=== PATIENT | female | born 1935 | race Caucasian/White ===

== ENCOUNTER → 2016-09-15 | Day surgery (SDC) | payer OTHER ==
[~2016-09-15] VITALS: Ht 149.9 cm; Wt 44.5 kg
[~2016-09-15] MED LIST: AMLODIPINE BESY10 M1 PO; ASPIRIN EC81 M1 PO; ATORVASTATIN CA40 M1 PO; BISACODYL5 M1 PO; CARDIZEM60 M1 PO; CEFAZOLIN SODIUM1 G1 IV; CLOPIDOGREL75 M1 PO; COUMADIN4 M1 PO; DILTIAZEM 24HR360 MG PO; DOCUSATE SODIU100 M3 PO; EPOGEN4000 UNIT/ IV; FOLIC ACID0.4 M1 PO; FUROSEMIDE20 M1 PO; LANOXIN125 MCG PO; METOPROLOL TART25 M1 PO; METOPROLOL TART50 M1 PO; MIDODRINE HCL5 M1 PO; NEPHRO-VITE TA0.8 MG PO; NITROGLYCERIN1 EAC3 TOP; QUINAPRIL HCL40 M1 PO; RENVELA800 M1 PO; VITAMIN B-650 M2 PO; ZETIA10 M1 PO
--- NOTE | 2016-09-15 10:05 | Procedure ---
Minor Surgical Procedure Note Date of Procedure: 09/15/16 Procedure Note: Preoperative diagnosis end-stage renal disease Postoperative diagnosis the same Procedure creation of a left brachiocephalic arteriovenous fistula Surgeon huong Santana. none Anesthesia conscious sedation Findings post creation there was a palpable thrill in the fistula and a palpable left radial pulse Details of procedure Patient was placed supine on the table timeout was taken she was correctly identified she was given a light sedation her left arm was prepped and draped in usual sterile way 5 mL of Marcaine lidocaine mixture were used to infuse over the antecubital fossa and the left arm A 1-1/2 inch incision was made in the antecubital fossa with a scalpel Subcutaneous tissue was dissected with cautery The cephalic vein was identified coming off the antecubital vein and dissected proximally for 1-1/2 inches Side branches were ligated with 4-0 silk ties The vein was transected then gently dilated with a 8 Albanian feeding tube It flushed quite easily I spatulated the end I then carefully dissected into the deep fascia in the antecubital fossa over the palpable brachial artery and obtained proximal distal control I heparinized with 2000 heparin and clamped the brachial artery with gentle bulldog clamps I made a 5 mm arteriotomy with an 11 blade and the brachial artery and sutured the end of the vein end to side with 6-0 Prolene suture Prior to completion anastomosis I flushed both artery and vein I reestablished flow immediately there was a strong thrill and good hemostasis There was also good radial pulse I closed the Teresa's with Vicryl and the skin with janina patient was sent to recovery room in stable condition
== END ==
LOC: STS 01:45
DX: N18.6 End stage renal disease (principal); N18.1 Chronic kidney disease, stage 1; I71.4 Abdominal aortic aneurysm, without rupture; I25.2 Old myocardial infarction; Z79.01 Long term (current) use of anticoagulants; Z87.891 Personal history of nicotine dependence; I10 Essential (primary) hypertension; I25.10 Atherosclerotic heart disease of native coronary artery without angina pectoris
CPT/HCPCS: 36415; J0690; J1644

== ENCOUNTER 2017-11-03 11:15 | Inpatient (IN) | payer OTHER ==
[~2017-11-03] VITALS: Ht 149.9 cm; Wt 51.0 kg
[~2017-11-03 11:15] MED LIST changes: +ACIDOPHILUS1 EACH PO; +AUGMENTIN 875-1 EACH PO; +CARDIZEM30 M1 PO; +COUMADIN3 M1 PO; +EPOGEN2000 UNIT/ IV; +FISH OIL 1,0001 EACH PO; +FLUTICASONE PRO16 GM NASB; +LEVAQUIN500 M1 PO; +MIDODRINE HCL2.5 M1 PO; -MIDODRINE HCL5 M1 PO; +NITRO-DUR1 EACH TOP; +OMEPRAZOLE20 M2 PO; +PANTOPRAZOLE SO40 M1 PO; +VITAMIN D35000 UNI1 PO; +VOLTAREN100 GM TOP; +WOMEN'S LAXATIVE5 M1 PO
[2017-11-03] MEDS ORDERED: TYLENOL ARTHRI650 M1 PO (11:29)
[2017-11-03] MEDS ORDERED: DOXYCYCLINE HY100 M2 PO (11:30)
[2017-11-03] MEDS ORDERED: OMEPRAZOLE20 M2 PO (11:35)
[2017-11-03] MEDS ORDERED: RENVELA800 M1 PO ×2 (11:38)
[2017-11-03] MEDS ORDERED: MUCUS RELIEF400 M1 PO (11:42)
--- NOTE | 2017-11-03 11:46 | ED GENERAL ADULT ---
History of Present Illness General Chief Complaint: General Adult Stated Complaint: BIBA FOR WEAKNESS Source: patient, old records, EMS Exam Limitations: no limitations Vital Signs & Intake/Output Vital Signs & Intake/Output Vital Signs Date Time Temp Pulse Resp B/P B/P Pulse O2 O2 Flow FiO2 Mean Ox Delivery Rate 11/03 1125 98 Room Air Room Air 11/03 1121 97.6 63 18 156/70 98 Room Air Room Air Allergies Coded Allergies: NO KNOWN ALLERGIES (01/18/16) Reconcile Medications Acetaminophen (Tylenol Arthritis) 650 MG TABLET.ER 1 TAB PO BID PAIN ( Reported) Aspirin (Ecotrin*) 81 MG TABLET.DR 1 TAB PO DAILY HEART HEALTH (Reported) Atorvastatin Calcium 40 MG TABLET 1 TAB PO QPM CHOLESTEROL (Reported) Bisacodyl (Women's Laxative) 5 MG TABLET 1 TAB PO DAILY constipation ( Reported) Diclofenac Sodium (Voltaren) 1 % GEL..GRAM. 1 GM TOP 4 TIMES/DAY KNEE PAIN ( Reported) apply to affected area(s) Digoxin (Lanoxin) 125 MCG TABLET 0.0625 MG PO 1700 Heart Health Every 24h Diltiazem HCl (Cardizem) 60 MG TABLET 1 TAB PO Q8 HEART (Reported) Doxycycline Hyclate 100 MG CAPSULE 1 CAP PO BID ANTIBIOTIC, INFECTION ( Reported) Epoetin Tee (Epogen) 2,000 UNIT/ML VIAL 4,000 IV Monday dialysis (Reported) Ezetimibe (Zetia) 10 MG TABLET 1 TAB PO DAILY CHOLESTEROL (Reported) Fluticasone Propionate 50 MCG/ACTUATION SPRAY.SUSP 2 SPRAY NASB DAILY pnemonia (Reported) Folic Acid 0.4 MG TABLET 1 TAB PO DAILY SUPPLEMENT (Reported) Guaifenesin (Mucus Relief) 400 MG TABLET 2 TAB PO BID COLD (Reported) Lactobacillus Acidophilus (Acidophilus) 1 EACH CAPSULE 1 CAP PO DAILY supplement (Reported) Metoprolol Tartrate 25 MG TABLET 0.5 TAB PO BID HEART RATE (Reported) Midodrine HCl 2.5 MG TABLET 1 TAB PO Monday hypotension (Reported) Nephro-Vitamins (Nephro-Katlyn Tablet) 0.8 MG TABLET 1 TAB PO DAILY supplement (Reported) Nitroglycerin (Nitroglycerin Patch) 0.2 MG/HOUR PATCH.TD24 1 PAT TOP DAILY HEART (Reported) [place]-3 Fatty Acids/Fish Oil (Fish Oil 1,000 MG Capsule) 340 MG-1,000 MG CAPSULE 1 CAP PO DAILY SUPPLEMENT (Reported) Omeprazole 20 MG CAPSULE.DR 1 CAP PO DAILY GI (Reported) Pyridoxine HCl (Vitamin B-6) 50 MG TABLET 1 TAB PO DAILY SUPPLEMENT (Reported ) Sevelamer Carbonate (Renvela) 800 MG TABLET 2 TAB PO 1700 SUPPLEMENT ( Reported) Sevelamer Carbonate (Renvela) 800 MG TABLET 1 TAB PO SuTuThSa SUPPLEMENT ( Reported) Sevelamer Carbonate (Renvela) 800 MG TABLET 1 TAB PO MoWeFr SUPPLEMENT ( Reported) Triage Note: BIBA FROM [facility] WITH C/O "I'M JUST SO COLD AND WEAK". PT CURRENTLY ON ANTIBIOTICS FOR PNEUMONIA, WAS DUE FOR DIALYSIS AT 1100 THIS MORNING, PT STATING " I DIDN'T WANT TO GO BECAUSE IT'S TOO COLD THERE". PT IS AWAKE, ALERT, ORIENTED ON ARRIVAL TO ED, VITALS STABLE, AFEBRILE, 98% ON ROOM AIR. Triage Nurses Notes Reviewed? yes Onset: Abrupt Duration: week(s): (1), constant, continues in ED, getting worse Timing: single episode today Injury Environment: [facility] Severity: mild, moderate No Modifying Factors: none Associated Symptoms: cough LMP (ages 10-50): post menopausal : No Patient currently breastfeeds: No HPI: 81-year-old female past medical history of end-stage renal disease on dialysis, CVA, TIA, coronary artery disease, aortic aneurysm, atrial fibrillation presents for evaluation of weakness chills cough and shortness of breath. Patient states symptoms have been ongoing for about a week. Her cough is productive but she is not able to spit anything out. She also reports intermittent shortness of breath worse when she coughs. She denies chest pain and hemoptysis or lower extremity edema. She missed her dialysis today She felt cold and it is cold in the dialysis center. She was last dialyzed Monday. She's been taking oral antibiotics for possible pneumonia. Her antibiotics were switched to doxycycline yesterday because she has not been improving. She does report chills but denies having an actual fever. No nausea vomiting or diarrhea. She does report generalized weakness. (Eusebio Chan) Past History Travel History Traveled to [place] past 21 day No Medical History Any Pertinent Medical History? see below for history Neurological: CVA, TIA EENT: NONE Cardiovascular: aortic aneurysm, AFIB, CAD, hypertension, myocardial infarction Respiratory: NONE Gastrointestinal: NONE Hepatic: NONE Renal: chronic kidney disease, nephrolithiasis Musculoskeletal: osteoarthritis Psychiatric: NONE Endocrine: NONE Blood Disorders: NONE Cancer(s): NONE SENIOR BUSINESS MANAGER/Reproductive: NONE History of MRSA: No History of VRE: No History of CDIFF: No Surgical History Surgical History: hysterectomy, s/p splenectomy for thrombocytopenia s/p AAA reapir with stent Psychosocial History Who do you live with Patient/Self Services at Home Nursing What is your primary language [place] Tobacco Use: Quit >30 days ago ETOH Use: denies use Illicit Drug Use: denies illicit drug use Family History Hx Contributory? No (Eusebio Chan) Review of Systems Review of Systems Constitutional: Reports: chills, malaise, weakness. EENTM: Reports: no symptoms. Respiratory: Reports: see HPI, cough, short of breath, sputum production. Cardiovascular: Reports: no symptoms. GI: Reports: no symptoms. Genitourinary: Reports: no symptoms. Musculoskeletal: Reports: no symptoms. Skin: Reports: no symptoms. Neurological/Psychological: Reports: no symptoms. Hematologic/Endocrine: Reports: no symptoms. Immunologic/Allergic: Reports: no symptoms. All Other Systems: Reviewed and Negative (Eusebio Chan) Physical Exam Physical Exam General Appearance: well developed/nourished, no apparent distress, alert, awake Head: atraumatic, normal appearance Eyes: Bilateral: normal appearance, PERRL, EOMI. Ears, Nose, Throat: hearing grossly normal Neck: normal inspection, supple, full range of motion Respiratory: chest non-tender, no respiratory distress, quiet respiration, decreased breath sounds Cardiovascular: regular rate/rhythm, normal peripheral pulses Peripheral Pulses: 2+ radial (R), 2+ radial (L) Gastrointestinal: soft, non-tender Back: normal inspection, normal range of motion, no vertebral tenderness Extremities: normal inspection, normal range of motion, no edema Neurologic/Psych: no motor/sensory deficits, awake, alert, oriented x 3 Skin: intact, normal color, warm/dry Lymphatic: no anterior cervical chauncey Core Measures ACS in differential dx? Yes CVA/TIA Diagnosis: No Sepsis Present: No Sepsis Focused Exam Completed? No (Eusebio Chan) Progress Differential Diagnoses I considered the following diagnoses in my evaluation of the patient: [Pneumonia , acute bronchitis, cellulitis, sepsis, electrolyte abnormality, dialysis catheter infection] Plan of Care: Orders Procedure Date/time Status Heart Healthy Diet 11/03 D Active LACTIC ACID 11/03 1422 Active Patient Data 11/[address] CHEST WO IV CONTRAST 11/03 1327 Active ED Holding Orders 11/03 1254 Active Admit to inpatient 11/03 1254 Active Vital Signs 11/03 1254 Active Code Status 11/03 1254 Active Intake & Output 11/03 1237 Active Add-on Test (ER Only) 11/03 1227 Active Add-on Test (ER Only) 11/03 1215 Active BLOOD CULTURE 11/03 1209 Active PARTIAL THROMBOPLASTIN TIME 11/03 1135 Complete PROTHROMBIN TIME 11/03 1135 Complete DIGOXIN 11/03 1135 Complete B-TYPE NATRIURETIC PEP (BNP) 11/03 1135 Complete TROPONIN LEVEL 11/03 1122 Complete LACTIC ACID 11/03 1122 Complete COMPREHENSIVE METABOLIC PANEL 11/03 1122 Complete CBC WITHOUT DIFFERENTIAL 11/03 1122 Complete EKG 11/03 1122 Active Current Medications Sig/Margaret Start time Last Medication Dose Stop Time Status Admin Paricalcitol 6 MCG PER PROTOCL PRN 11/03 1330 AC (Zemplar Inj. 2MCG/ ML) Laboratory Tests 11/03/17 1135: Anion Gap 20 H, Estimated GFR 7 L, BUN/Creatinine Ratio 7.0, Glucose 78, Lactic Acid 1.9, Calcium 8.6, Total Bilirubin 0.9, AST 32, ALT 32, Alkaline Phosphatase 110, Troponin I 0.21 *H, [id number] Pept > 67591 H, Total Protein 6.0 L, Albumin 3.3 L, Globulin 2.7, Albumin/Globulin Ratio 1.2, PT 13.2 H, INR 1.21 H, APTT 20 L, CBC w Diff MAN DIFF ORDERED, RBC 3.85 L, MCV 91.2, MCH 30.7, MCHC 33.7, RDW 15.4 H, MPV 8.0, Gran % 67.9, Lymphocytes % 25.5 , Monocytes % 6.4, Eosinophils % 0.2, Basophils % 0, Absolute Granulocytes 16.4 H, Segmented Neutrophils 85 H, Absolute Lymphocytes 6.2 H, Lymphocytes 13 L, Monocytes 2, Absolute Monocytes 1.6 H, Absolute Eosinophils 0.1, Absolute Basophils 0, Platelet Estimate VERIFIED BY SMEAR, Normocytic RBCs VERIFIED, Normochromic RBCs VERIFIED, Digoxin 1.3 Microbiology 11/03 1230 BLOOD: Blood Culture - RECD 11/03 1209 BLOOD: Blood Culture - CAN Cancelled: Patient seen and evaluated. She is here with weakness cough shortness of breath and chills. Symptoms have been ongoing for a week she is being treated as an outpatient for pneumonia but feels she is not getting better. Her cough is loose sounding. She denies chest pain. Her vitals are stable on initial evaluation no hypoxia. Her EKG shows minimal ST depressions in the inferior leads. Blood work shows a white blood cell count of 24,000. This is significantly increased from 1 week ago. She also appears to have a positive troponin of 0.21. Spoke with Dr. Jimenez who agrees with giving her an aspirin. Dr. Rowley will evaluate the EKG to determine if the patient needs to be heparinized. Additionally spoke with Dr. Garcia from nephrology. He wants to dialyze the patient this afternoon. He recommends holding off on antibiotics until the last hour of dialysis. Patient will likely require broad-spectrum antibiotics due to her recently being on antibiotics. Case discussed with Dr. Duke he agrees. Chest x-ray does not show an overt consolidation. With the patient's elevated white blood cell count and cough a CT scan of the chest will be obtained for further evaluation. Patient will be admitted to telemetry. Antibiotics are being held at this time until dialysis. Also heparin is being held pending Dr. Jimenez looking at the EKG. Patient has no chest pain. Diagnostic Imaging: Viewed by Me: Radiology Read. Discussed w/RAD: Radiology Read. Radiology Impression: PATIENT: KENDY QUESADA PRESENT AGE: 81 PATIENT ACCOUNT NO: [id number] : 33 LOCATION: [facility] ORDERING PHYSICIAN: Eusebio JI SERVICE DATE: 11/03/17 EXAM TYPE: RAD - XRY- PORTABLE CHEST XRAY EXAMINATION: XR PORTABLE CHEST CLINICAL INFORMATION: Cough. Shortness of breath. Pneumonia. COMPARISON: Chest radiograph 09/29/2017. TECHNIQUE: Portable frontal view of the chest was obtained. FINDINGS: The position of the right internal jugular vein catheter has remained unchanged. Cardiac leads overlie the chest. The cardiac silhouette is grossly enlarged. Upper mediastinal contours are normal. Lungs are well-expanded. No overt consolidative disease. No pleural effusion or pneumothorax. No acute osseous finding. IMPRESSION: Stable examination. Cardiomegaly. No overt consolidative disease or effusion. DICTATED BY: Gayle HUBBARD,Hai Alvarez DATE/TIME DICTATED:11/03 MARINE ENGINEERING TEACHER:MARIA INES DATE/TIME TRANSCRIBED:11/03/171311 CONFIDENTIAL, DO NOT COPY WITHOUT APPROPRIATE AUTHORIZATION. <Electronically signed in Other Vendor System> Initial ED EKG: AFIB (RATE 61), nonspecific ST T wave chg, IVCD, MINIMAL INFERIOR ST DE[PRESSION (Eusebio Chan) Departure Departure Disposition: STILL A PATIENT Condition: Stable Clinical Impression Primary Impression: Elevated troponin I level Secondary Impressions: Leukocytosis Qualifiers: Leukocytosis type: unspecified Qualified Code: D72.829 - Elevated white blood cell count, unspecified Referrals: Jairo Nava MD (PCP/Family) Departure Forms: Customer Survey General Discharge Information Admission Note Spoke With: Jairo Nava MD Documentation of Exam: Documentation of any treatments & extenuating circumstances including Concerns Regarding Discharge (functional status, medication knowledge or non-compliance, living conditions, etc.) that warrant an admission rather than observation: [ Telemetry, serial labs, serial EKGs, cardiology, dialysis, IV antibiotics, echocardiogram, follow-up cultures] (Eusebio Chan) PA/RESPIRATORY SUPERVISOR Co-Sign Statement Statement: ED Attending supervision documentation- [X] I saw and evaluated the patient. I have also reviewed all the pertinent lab results and diagnostic results. I agree with the findings and the plan of care as documented in the PA's/RESPIRATORY SUPERVISOR's documentation. [X] I have reviewed the ED Record and agree with the PA's/RESPIRATORY SUPERVISOR's documentation. [] Additions or exceptions (if any) to the PAs/RESPIRATORY SUPERVISOR's note and plan are summarized below: [Patient to be admitted for IV antibiotics, dialysis, cardiology consultation, serial enzymes, telemetry monitoring] (Leilani HUBBARD,[address]) Critical Care Note Critical Care Note Critical Care Time: 75-104 min (Eusebio Chan)
[2017-11-03 11:52] LABS: ABSOLUTE BASOPHIL COUNT 0 /CUMM (0.0-0.2); ABSOLUTE EOSINOPHIL COUNT 0.1 /CUMM (0.0-0.7); ABSOLUTE GRANULOCYTE CT 16.4 /CUMM (1.4-6.5); ABSOLUTE LYMPH COUNT 6.2 /CUMM (1.2-3.4); ABSOLUTE MONOCYTE COUNT 1.6 /CUMM (0.10-0.60); BASOPHIL % 0 % (0.0-2.0); EOSINOPHIL % 0.2 % (0-5); GRANULOCYTE % 67.9 % (42.2-75.2); HEMATOCRIT 35.1 % (37-47); MEAN CORPUSCULAR HGB 30.7 PG (27.0-31.0); MEAN CORPUSCULAR HGB CONC 33.7 G/DL (33.0-37.0); MEAN CORPUSCULAR VOLUME 91.2 FL (81.0-99.0); PLATELET COUNT 447 /CUMM (130-400); RBC DISTRIBUTION WIDTH 15.4 % (11.5-14.5); RED BLOOD CELL CT 3.85 /CUMM (4.20-5.40); WHITE BLOOD CELL COUNT 24.2 /CUMM (4.8-10.8)
[2017-11-03 12:52] LABS: PT 13.2 SEC (9.4-12.5); PTT 20 SEC (25-37)
--- NOTE | 2017-11-03 13:17 | RADIOLOGY REPORT ---
EXAMINATION: XR PORTABLE CHEST CLINICAL INFORMATION: Cough. Shortness of breath. Pneumonia. COMPARISON: Chest radiograph 09/29/2017. TECHNIQUE: Portable frontal view of the chest was obtained. FINDINGS: The position of the right internal jugular vein catheter has remained unchanged. Cardiac leads overlie the chest. The cardiac silhouette is grossly enlarged. Upper mediastinal contours are normal. Lungs are well-expanded. No overt consolidative disease. No pleural effusion or pneumothorax. No acute osseous finding. IMPRESSION: Stable examination. Cardiomegaly. No overt consolidative disease or effusion.
--- NOTE | 2017-11-03 13:37 | History & Physical ---
Luda HUBBARD,[facility] 11/03/17 3847: General Information and HPI History of Present Illness: Ms. Weiner is an 81-year-old female with past medical history of CVA, aortic aneurysm, atrial fibrillation not on anticoagulation followed by Dr. Jimenez, coronary artery disease status post STEMI, hypertension, chronic kidney disease on hemodialysis followed with Dr. Tee, osteoarthritis, AAA status post repair, ITP status post splenectomy, and severe pulmonary hypertension who presents with chills and weakness. The patient has had symptoms of shortness of breath, chills, and a productive cough for the past week or so. Patient is a poor historian and does not remember exactly. She was started on levofloxacin 7 days ago and was not getting better. She was switched to doxycycline yesterday but continued to do poorly. She came in today because of that. She additionally complains of a right-sided pain, on her chest, there is constant and sharp, 6/10, somewhat relieved when laying on her left side. She does not use oxygen at home. She additionally complains of some mild dysuria though she does not urinate very much. She has not been vaccinated for influenza or pneumococcus. She does have positive sick contacts. She denies any abdominal pain, travel history, diarrhea, or other issues. She is a former smoker denies alcohol or drug use. Allergies/Medications Allergies: Coded Allergies: NO KNOWN ALLERGIES (01/18/16) Home Med list Acetaminophen (Tylenol Arthritis) 650 MG TABLET.ER 1 TAB PO BID PAIN ( Reported) Aspirin (Ecotrin*) 81 MG TABLET.DR 1 TAB PO DAILY HEART HEALTH (Reported) Atorvastatin Calcium 40 MG TABLET 1 TAB PO QPM CHOLESTEROL (Reported) Bisacodyl (Women's Laxative) 5 MG TABLET 1 TAB PO DAILY constipation ( Reported) Diclofenac Sodium (Voltaren) 1 % GEL..GRAM. 1 GM TOP 4 TIMES/DAY KNEE PAIN ( Reported) apply to affected area(s) Digoxin (Lanoxin) 125 MCG TABLET 0.0625 MG PO 1700 Heart Health Every 24h Diltiazem HCl (Cardizem) 60 MG TABLET 1 TAB PO Q8 HEART (Reported) Epoetin Tee (Epogen) 2,000 UNIT/ML VIAL 4,000 IV Monday dialysis (Reported) Ezetimibe (Zetia) 10 MG TABLET 1 TAB PO DAILY CHOLESTEROL (Reported) Folic Acid 0.4 MG TABLET 1 TAB PO DAILY SUPPLEMENT (Reported) Guaifenesin (Mucus Relief) 400 MG TABLET 2 TAB PO BID COLD (Reported) Lactobacillus Acidophilus (Acidophilus) 1 EACH CAPSULE 1 CAP PO DAILY supplement (Reported) Midodrine HCl 2.5 MG TABLET 1 TAB PO Monday hypotension (Reported) Nephro-Vitamins (Nephro-Katlyn Tablet) 0.8 MG TABLET 1 TAB PO DAILY supplement (Reported) [place]-3 Fatty Acids/Fish Oil (Fish Oil 1,000 MG Capsule) 340 MG-1,000 MG CAPSULE 1 CAP PO DAILY SUPPLEMENT (Reported) Omeprazole 20 MG CAPSULE.DR 1 CAP PO DAILY GI (Reported) Pyridoxine HCl (Vitamin B-6) 50 MG TABLET 1 TAB PO DAILY SUPPLEMENT (Reported ) Sevelamer Carbonate (Renvela) 800 MG TABLET 2 TAB PO 1700 SUPPLEMENT ( Reported) Sevelamer Carbonate (Renvela) 800 MG TABLET 1 TAB PO SuTuThSa SUPPLEMENT ( Reported) Sevelamer Carbonate (Renvela) 800 MG TABLET 1 TAB PO MoWeFr SUPPLEMENT ( Reported) Past History Travel History Traveled to [place] past 21 day No Medical History Neurological: CVA, TIA EENT: NONE Cardiovascular: aortic aneurysm, AFIB, CAD, hypertension, myocardial infarction Respiratory: NONE Gastrointestinal: NONE Hepatic: NONE Renal: chronic kidney disease, nephrolithiasis Musculoskeletal: osteoarthritis Psychiatric: NONE Endocrine: NONE Blood Disorders: NONE Cancer(s): NONE 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 yes Review of Systems Review of Systems Constitutional: Reports: see HPI. EENTM: Reports: no symptoms. Cardiovascular: Reports: no symptoms. Respiratory: Reports: see HPI. GI: Reports: no symptoms. Genitourinary: Reports: see HPI. Musculoskeletal: Reports: no symptoms. Skin: Reports: no symptoms. Neurological/Psychological: Reports: no symptoms. Hematologic/Endocrine: Reports: no symptoms. Immunologic/Allergic: Reports: no symptoms. All Other Systems: Reviewed and Negative Exam & Diagnostic Data Last 24 Hrs of Vital Signs/I&O Vital Signs Date Time Temp Pulse Resp B/P B/P Pulse O2 O2 Flow FiO2 Mean Ox Delivery Rate 11/03 1125 98 Room Air Room Air 11/03 1121 97.6 63 18 156/70 98 Room Air Room Air Intake & Output 11/03 1600 11/03 0800 11/03 0000 Intake Total 50 Output Total Balance 50 Intake, Oral 50 Patient 40.823 kg Weight Weight Reported by Patient Measurement Method Physical Exam General Appearance Alert, Oriented X3, Cooperative, No Acute Distress Sepsis Skin Exam (color): Normal for Ethnicity HEENT Atraumatic Cardiovascular irregular, catheter appears old but no erythema or discahrge Lungs Right sided wheezing Abdomen Normal Bowel Sounds, Soft, No Tenderness Extremities trace edema with armenta=sensitive tenderness Sepsis Peripheral Pulse Location: Posterior Tibialis Sepsis Peripheral Pulse Exam: Normal Sepsis Cap Refill Exam: <2 Sec Last 24 Hrs of Labs/Jorge: Laboratory Tests 11/03/17 1135: Anion Gap 20 H, Estimated GFR 7 L, BUN/Creatinine Ratio 7.0, Glucose 78, Lactic Acid 1.9, Calcium 8.6, Total Bilirubin 0.9, AST 32, ALT 32, Alkaline Phosphatase 110, Troponin I 0.21 *H, [id number]-[id number] Pept > 07619 H, Total Protein 6.0 L, Albumin 3.3 L, Globulin 2.7, Albumin/Globulin Ratio 1.2, PT 13.2 H, INR 1.21 H, APTT 20 L, CBC w Diff MAN DIFF ORDERED, RBC 3.85 L, MCV 91.2, MCH 30.7, MCHC 33.7, RDW 15.4 H, MPV 8.0, Gran % 67.9, Lymphocytes % 25.5 , Monocytes % 6.4, Eosinophils % 0.2, Basophils % 0, Absolute Granulocytes 16.4 H, Segmented Neutrophils 85 H, Absolute Lymphocytes 6.2 H, Lymphocytes 13 L, Monocytes 2, Absolute Monocytes 1.6 H, Absolute Eosinophils 0.1, Absolute Basophils 0, Platelet Estimate VERIFIED BY SMEAR, Normocytic RBCs VERIFIED, Normochromic RBCs VERIFIED, Digoxin 1.3 Microbiology 11/03 1452 LOWER RESP: Respiratory Culture - ORD 11/03 1452 LOWER RESP: Gram Stain - ORD 11/03 1451 URINE ROUT: Legionella Antigen - ORD 11/03 1451 URINE ROUT: Streptococcus pneumoniae Antigen (M - ORD 11/03 1451 NASOPHARYN: Influenza Virus A & B Rapid Smear - ORD 11/03 1230 BLOOD: Blood Culture - RECD 11/03 1209 BLOOD: Blood Culture - CAN Cancelled: Assessment/Plan Assessment: Ms. Weiner is an 81-year-old female with past medical history of CVA, aortic aneurysm, atrial fibrillation not on anticoagulation followed by Dr. Jimenez, coronary artery disease status post STEMI, hypertension, chronic kidney disease on hemodialysis followed with Dr. Tee, osteoarthritis, AAA status post repair, ITP status post splenectomy, and severe pulmonary hypertension who presents with chills and weakness. On presentation, vital signs were T 97.6, HR 60, RR 18, BP 156/70, saturating 90 % on room. Laboratories were significant for white blood cell count 24.2, hemoglobin 11.8, MCV 91.2, platelets 447, carbon dioxide 20, BUN 42, creatinine 6.0 (baseline 4.9) C's, troponin 0 0.21, BNP greater than 35,000, digoxin level 1.3, INR 1.21. Chest x-ray was negative for any acute abnormality. She will be admitted to telemetry and treated for the following problems: 1. Leukocytosis 2. Chronic kidney disease on hemodialysis 3. Elevated troponin 4. Normocytic anemia #Leukocytosis: Patient has a chronically elevated white blood cell count but is now presenting with chills, shortness of breath, and cough in the setting of an even higher white count. I suspect that she is infected but the source is unclear. Given her symptoms, pneumonia is high in the differential though she did fail levofloxacin and doxycycline therapy. It is possible that is resistant to these antibiotics. Additionally, she has a catheter has not been changed in a while and could be a source of infection, especially given that she has not responded to treatment so far. Finally, she is complaining of some mild dysuria and could have a urinary source. Patient is status post splenectomy and has chronic kidney disease, which contribute to an immunocompromised state. -Blood culture, sputum culture, urinary antigens -Urinalysis, urine culture -Vancomycin and ceftazidine empirically -Vanc level tomorrow 1800 -Infectious disease consult -CT chest #Elevated troponin: Patient is a very mild troponin elevation with no EKG changes. She has some right-sided thoracic pain but no left-sided chest pain or other signs of ACS. I suspect type II myocardial infarction. She did receive aspirin in the ER. -Trend troponin and EKGs -Cardiology consult #Chronic kidney disease on hemodialysis: Patient is on dialysis and is receiving dialysis today. Her anemia is likely related to this. -Nephrology consult #Chronic medical problems: -Continue other medications DVT prophylaxis with heparin Renal dialysis diet DNR/DNI As Ranked By This Provider Problem List: 1. Leukocytosis Qualifiers Leukocytosis type: unspecified Qualified Code: D72.829 - Elevated white blood cell count, unspecified Core Measures/Misc (02/05) Acute Coronary Syndrome ACS Diagnosis: No Congestive Heart Failure Congestive Heart Failure Diagnosis No Cerebrovascular Accident CVA/TIA Diagnosis: No VTE (View Protocol) VTE Risk Factors Age>40 No Mechanical VTE Prophylaxis d/t N/A MechProphylax Ordered No VTE Pharm Prophylaxis d/t NA PharmProphylax ordered Sepsis (View protocol) Sepsis Present: No If YES complete Sepsis Event Note If YES complete Sepsis Event Note Ceci HUBBARD,[facility] 11/03/17 1620: Core Measures/Misc (02/05) Sepsis (View protocol) If YES complete Sepsis Event Note If YES complete Sepsis Event Note Resident Review Statement Resident Statement: examined this patient, discussed with medical intern, agreed with medical intern, reviewed EMR data (avail) Other Findings: Mrs. Weiner is 81-year-old female with past medical history significant for hypertension, hyperlipidemia, atrial fibrillation not on anticoagulation for GI bleed, CVA, AAA status post repair 2004, CAD status post stent 2003, end-stage renal disease on dialysis M, W, F who presented to ED from [facility] with chief complaint of chills and weakness. History was obtained from patient's however she is a poor historian given clinical condition. She reported 1 week history of weakness, productive cough of yellow sputum, no blood , shortness of breath, patient had a chest x-ray on 10/26/17 that showed right upper lobe infiltration and was started on levofloxacin however symptoms persist and repeated chest x-ray on 11/02/17 showed bilateral basilar changes of atelectasis or pneumonia and antibiotic was switched to doxycycline. Patient continued to have similar symptoms and this morning missed her hemodialysis appointment because of chills, weakness and came to ED for evaluation. Patient reported right pleuritic chest pain that relieved with laying on left side. Positive history of sick contact. Problem list #HCAP being immunocompromised in nursing facility and failed levofloxacin and doxycycline associated with pleuritic chest pain #End-stage renal disease on hemodialysis #Elevated troponin with no EKG changes #Chronic leukocytosis Plan Admit to telemetry floor Vitals every shift Repeat CBCs, BEP in a.m. Blood culture 2 UA Hemodialysis per nephrology consultation Vancomycin and ceftazidime CT chest without IV contrast ID consultation Cardiology consultation Trend tropes and EKG Continue home medication except for mididrone Guaiac stool Orthostatic measurement Diet renal dialysis Code DNR/DNI DVT prophylaxis Alps and heparin subcutaneous Code DNR/DNI DVT prophylaxis Alps and heparin subcutaneous
--- NOTE | 2017-11-03 14:50 | Cons- Nephrology ---
See Addendum General Information and HPI Consulting Request Date of Consult: 11/03/17 Requested By: Jairo Nava MD Reason for Consult: ESRD Source of Information: patient, old records Exam Limitations: no limitations History of Present Illness: The patient is an 81-year-old woman with a past medical history most significant for end-stage renal disease on hemodialysis, A. fib on Coumadin, hypertension, CVA presents with weakness. This was in her usual state of health prior to a couple weeks ago and she reports that she has felt especially weak. She's had a cough has been mostly nonproductive. She has had some upper abdominal pain. Although the details are not entirely clear, she has been on oral antibiotics (Levaquin) for possible pneumonia for the last week or so which were switched to doxycycline yesterday. She has been feeling cold with chills but has not had a fever. On presentation, blood pressure 156/70afebrile. Labs most notable for white count 24.2. Chest x-ray unremarkable. 1 set of blood cultures sent. Should note she has a CVC for access. Allergies/Medications Allergies: Coded Allergies: NO KNOWN ALLERGIES (01/18/16) Home Med List: Acetaminophen (Tylenol Arthritis) 650 MG TABLET.ER 1 TAB PO BID PAIN ( Reported) Aspirin (Ecotrin*) 81 MG TABLET.DR 1 TAB PO DAILY HEART HEALTH (Reported) Atorvastatin Calcium 40 MG TABLET 1 TAB PO QPM CHOLESTEROL (Reported) Bisacodyl (Women's Laxative) 5 MG TABLET 1 TAB PO DAILY constipation ( Reported) Diclofenac Sodium (Voltaren) 1 % GEL..GRAM. 1 GM TOP 4 TIMES/DAY KNEE PAIN ( Reported) apply to affected area(s) Digoxin (Lanoxin) 125 MCG TABLET 0.0625 MG PO 1700 Heart Health Every 24h Diltiazem HCl (Cardizem) 60 MG TABLET 1 TAB PO Q8 HEART (Reported) Doxycycline Hyclate 100 MG CAPSULE 1 CAP PO BID ANTIBIOTIC, INFECTION ( Reported) Epoetin Tee (Epogen) 2,000 UNIT/ML VIAL 4,000 IV Monday dialysis (Reported) Ezetimibe (Zetia) 10 MG TABLET 1 TAB PO DAILY CHOLESTEROL (Reported) Fluticasone Propionate 50 MCG/ACTUATION SPRAY.SUSP 2 SPRAY NASB DAILY pnemonia (Reported) Folic Acid 0.4 MG TABLET 1 TAB PO DAILY SUPPLEMENT (Reported) Guaifenesin (Mucus Relief) 400 MG TABLET 2 TAB PO BID COLD (Reported) Lactobacillus Acidophilus (Acidophilus) 1 EACH CAPSULE 1 CAP PO DAILY supplement (Reported) Metoprolol Tartrate 25 MG TABLET 0.5 TAB PO BID HEART RATE (Reported) Midodrine HCl 2.5 MG TABLET 1 TAB PO Monday hypotension (Reported) Nephro-Vitamins (Nephro-Katlyn Tablet) 0.8 MG TABLET 1 TAB PO DAILY supplement (Reported) Nitroglycerin (Nitroglycerin Patch) 0.2 MG/HOUR PATCH.TD24 1 PAT TOP DAILY HEART (Reported) [place]-3 Fatty Acids/Fish Oil (Fish Oil 1,000 MG Capsule) 340 MG-1,000 MG CAPSULE 1 CAP PO DAILY SUPPLEMENT (Reported) Omeprazole 20 MG CAPSULE.DR 1 CAP PO DAILY GI (Reported) Pyridoxine HCl (Vitamin B-6) 50 MG TABLET 1 TAB PO DAILY SUPPLEMENT (Reported ) Sevelamer Carbonate (Renvela) 800 MG TABLET 2 TAB PO 1700 SUPPLEMENT ( Reported) Sevelamer Carbonate (Renvela) 800 MG TABLET 1 TAB PO SuTuThSa SUPPLEMENT ( Reported) Sevelamer Carbonate (Renvela) 800 MG TABLET 1 TAB PO MoWeFr SUPPLEMENT ( Reported) Current Medications: Current Medications Sig/Margaret Start time Last Medication Dose Route Stop Time Status Admin Aspirin 0 .STK-MED ONE 11/03 1234 DC PO Aspirin 325 MG ONCE ONE 11/03 1230 DC 11/03 PO 11/03 1231 1236 Paricalcitol 6 MCG PER PROTOCL PRN 11/03 1330 AC IV Review of Systems Review of Systems: Complete 14 point ROS neg except as per HPI Past History Travel History Traveled to [place] past 21 day No Medical History Neurological: CVA, TIA EENT: NONE Cardiovascular: aortic aneurysm, AFIB, CAD, hypertension, myocardial infarction Respiratory: NONE Gastrointestinal: NONE Hepatic: NONE Renal: chronic kidney disease, nephrolithiasis Musculoskeletal: osteoarthritis Psychiatric: NONE Endocrine: NONE Blood Disorders: NONE Cancer(s): NONE 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 yes Exam & Diagnostic Data Vital Signs and I&O Vital Signs Date Time Temp Pulse Resp B/P B/P Pulse O2 O2 Flow FiO2 Mean Ox Delivery Rate 11/03 1125 98 Room Air Room Air 11/03 1121 97.6 63 18 156/70 98 Room Air Room Air Intake & Output 11/03 0400 11/02 0400 11/01 0400 Intake Total 50 Output Total Balance 50 Intake, Oral 50 Patient 89 lb 15.99 oz Weight Weight Reported by Patient Measurement Method Physical Exam: Gen - weak appearing Head - NCAT Eyes - anicteric sclera, EOMI Neck - supple, no LAD CV - RRR, no m/r/g Chest - clear anteriorly, no w/r/r; CVC - no erythema/fluctuance Abd - soft, NTND Upper ext - warm, no edema Lower ext - warm, no edema Skin - no rash or jaundice Neuro - AOX3, grossly nonfocal Results Pertinent Lab Results: Laboratory Tests 11/03 1135 Chemistry Sodium (137 - 145 mmol/L) 143 Potassium (3.5 - 5.1 mmol/L) 4.1 Chloride (98 - 107 mmol/L) 103 Carbon Dioxide (22 - 30 mmol/L) 20 L Anion Gap (5 - 16) 20 H BUN (7 - 17 mg/dL) 42 H Creatinine (0.5 - 1.0 mg/dL) 6.0 *H Estimated GFR (>60 ml/min) 7 L BUN/Creatinine Ratio (7 - 25 %) 7.0 Glucose (65 - 99 mg/dL) 78 Lactic Acid (0.7 - 2.1 mmol/L) 1.9 Calcium (8.4 - 10.2 mg/dL) 8.6 Total Bilirubin (0.2 - 1.3 mg/dL) 0.9 AST (14 - 36 U/L) 32 ALT (9 - 52 U/L) 32 Alkaline Phosphatase (<127 U/L) 110 Troponin I (< 0.11 ng/ml) 0.21 *H [id number] Pept (<125 pg/mL) > 26300 H Total Protein (6.3 - 8.2 g/dL) 6.0 L Albumin (3.5 - 5.0 g/dL) 3.3 L Globulin (1.9 - 4.2 gm/dL) 2.7 Albumin/Globulin Ratio (1.1 - 2.2 %) 1.2 Coagulation PT (9.4 - 12.5 SEC) 13.2 H INR (0.90 - 1.19) 1.21 H APTT (25 - 37 SEC) 20 L Hematology CBC w Diff MAN DIFF ORDERED WBC (4.8 - 10.8 /CUMM) 24.2 H RBC (4.20 - 5.40 /CUMM) 3.85 L Hgb (12.0 - 16.0 G/DL) 11.8 L Hct (37 - 47 %) 35.1 L MCV (81.0 - 99.0 FL) 91.2 MCH (27.0 - 31.0 PG) 30.7 MCHC (33.0 - 37.0 G/DL) 33.7 RDW (11.5 - 14.5 %) 15.4 H Plt Count (130 - 400 /CUMM) 447 H MPV (7.4 - 10.4 FL) 8.0 Gran % (42.2 - 75.2 %) 67.9 Lymphocytes % (20.5 - 51.1 %) 25.5 Monocytes % (1.7 - 9.3 %) 6.4 Eosinophils % (0 - 5 %) 0.2 Basophils % (0.0 - 2.0 %) 0 Absolute Granulocytes (1.4 - 6.5 /CUMM) 16.4 H Segmented Neutrophils (42.2 - 75.2 %) 85 H Absolute Lymphocytes (1.2 - 3.4 /CUMM) 6.2 H Lymphocytes (20.5 - 51.1 %) 13 L Monocytes (1.7 - 9.3 %) 2 Absolute Monocytes (0.10 - 0.60 /CUMM) 1.6 H Absolute Eosinophils (0.0 - 0.7 /CUMM) 0.1 Absolute Basophils (0.0 - 0.2 /CUMM) 0 Platelet Estimate (ADEQUATE) VERIFIED BY SMEAR Normocytic RBCs VERIFIED Normochromic RBCs VERIFIED Toxicology Digoxin (0.8 - 2.0 ng/mL) 1.3 Imaging/Other Studies: EXAM TYPE: RAD - XRY-PORTABLE CHEST XRAY EXAMINATION: XR PORTABLE CHEST CLINICAL INFORMATION: Cough. Shortness of breath. Pneumonia. COMPARISON: Chest radiograph 09/29/2017. TECHNIQUE: Portable frontal view of the chest was obtained. FINDINGS: The position of the right internal jugular vein catheter has remained unchanged. Cardiac leads overlie the chest. The cardiac silhouette is grossly enlarged. Upper mediastinal contours are normal. Lungs are well-expanded. No overt consolidative disease. No pleural effusion or pneumothorax. No acute osseous finding. IMPRESSION: Stable examination. Cardiomegaly. No overt consolidative disease or effusion. Assessment/Plan Assessment/Recommendations Assessment: Weakness - Elevated WBC brings up concern for infection (although should note that her baseline WBC is approx 12-14). Localizing symptoms including cough as well as upper abd pain. Chest x-ray unrevealing. Being started on empiric abx while cultures sent. May need to consider abdominal imaging to find source given pain. ESRD - Due for routine HD today. CVC not clearly infected. Anemia - Hg above goal - will hold off on further KEVON administration. Recommendations: -HD today - UF to EDW -Abx as per primary team; f/u cultures; consider further CT C/A/P imaging -Hold off on KEVON -Next HD on Monday Please call [phone]
--- NOTE | 2017-11-03 15:55 | PN- Student ---
Subjective Subjective: Ms. Weiner is a 81 y/o female with a PMH significant for end-stage renal disease on dialysis (followed by Dr. Lujan), CVA, TIA, CAD, AAA s/p stent, afib (not on Coumadin), splenectomy, chronic leukocytosis, severe PHTN, HTN that comes to ED BIBA d/t feeling "cold and weak". She was scheduled to get her dialysis today and didn't want to go because "the place is too cold". She states that she doesn't know the onset of symptoms, but her complains have been constant for the past couple of days. The weakness have been associated with cough which produces a small amount of bright yellow sputum. She also complains of a 6/10 sharp pain in the right side of her chest which doesn't radiate anywhere, nothing makes it worse, but lying on her left side makes it better. She denies confusion, fevers, chest pain or dizziness. She does report chills, pain on urination (which has gone on since she started dialysis) and a temporal dull headache on her right side. Labs on admission were significant for WBC of 24.2, creatinine of 6, PBNP >00522 and Troponins of 0.21. Allergies: None Meds: Acetaminophen (Tylenol Arthritis) 650 MG TABLET.ER 1 TAB PO BID PAIN ( Reported) Aspirin (Ecotrin*) 81 MG TABLET.DR 1 TAB PO DAILY HEART HEALTH (Reported) Atorvastatin Calcium 40 MG TABLET 1 TAB PO QPM CHOLESTEROL (Reported) Bisacodyl (Women's Laxative) 5 MG TABLET 1 TAB PO DAILY constipation ( Reported) Diclofenac Sodium (Voltaren) 1 % GEL..GRAM. 1 GM TOP 4 TIMES/DAY KNEE PAIN ( Reported) apply to affected area(s) Digoxin (Lanoxin) 125 MCG TABLET 0.0625 MG PO 1700 Heart Health Every 24h Diltiazem HCl (Cardizem) 60 MG TABLET 1 TAB PO Q8 HEART (Reported) Doxycycline Hyclate 100 MG CAPSULE 1 CAP PO BID ANTIBIOTIC, INFECTION ( Reported) Epoetin Tee (Epogen) 2,000 UNIT/ML VIAL 4,000 IV Monday dialysis (Reported) Ezetimibe (Zetia) 10 MG TABLET 1 TAB PO DAILY CHOLESTEROL (Reported) Fluticasone Propionate 50 MCG/ACTUATION SPRAY.SUSP 2 SPRAY NASB DAILY pnemonia (Reported) Folic Acid 0.4 MG TABLET 1 TAB PO DAILY SUPPLEMENT (Reported) Guaifenesin (Mucus Relief) 400 MG TABLET 2 TAB PO BID COLD (Reported) Lactobacillus Acidophilus (Acidophilus) 1 EACH CAPSULE 1 CAP PO DAILY supplement (Reported) Metoprolol Tartrate 25 MG TABLET 0.5 TAB PO BID HEART RATE (Reported) Midodrine HCl 2.5 MG TABLET 1 TAB PO Monday hypotension (Reported) Nephro-Vitamins (Nephro-Katlyn Tablet) 0.8 MG TABLET 1 TAB PO DAILY supplement (Reported) Nitroglycerin (Nitroglycerin Patch) 0.2 MG/HOUR PATCH.TD24 1 PAT TOP DAILY HEART (Reported) [place]-3 Fatty Acids/Fish Oil (Fish Oil 1,000 MG Capsule) 340 MG-1,000 MG CAPSULE 1 CAP PO DAILY SUPPLEMENT (Reported) Omeprazole 20 MG CAPSULE.DR 1 CAP PO DAILY GI (Reported) Pyridoxine HCl (Vitamin B-6) 50 MG TABLET 1 TAB PO DAILY SUPPLEMENT (Reported ) Sevelamer Carbonate (Renvela) 800 MG TABLET 2 TAB PO 1700 SUPPLEMENT ( Reported) Sevelamer Carbonate (Renvela) 800 MG TABLET 1 TAB PO SuTuThSa SUPPLEMENT ( Reported) Sevelamer Carbonate (Renvela) 800 MG TABLET 1 TAB PO MoWeFr SUPPLEMENT ( Reported) PMH: CVA, TIA, AAA, afib, CAD, HTN, PHTN, PA, ESRD, nephrolithiasis, osteoarthritis FH: Father: "heart problems", Mother: uterine cancer SH: hysterectomy, splenectomy (d/t thrombocytopenia), AAA s/p stent SH: Patient lives in [facility], 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 She is a former smoker but denies illicit drug use and alcohol ingestion. She denies any recent travels. She is mostly bed bound although sometimes she takes a few steps to the common dinning area and the nurses move her ocasionally to a chair. Review of Systems Constitutional: Reports: see HPI. EENTM: Reports: see HPI Cardiovascular: Reports: no symptoms. Respiratory: Reports: see HPI. GI: Reports: constipation Genitourinary: Reports: see HPI. Musculoskeletal: Reports: no symptoms. Skin: Reports: no symptoms. Neurological/Psychological: Reports: no symptoms. Hematologic/Endocrine: Reports: increased bruising Immunologic/Allergic: Reports: no symptoms. Objective Objective: Vital Signs Date Time Temp Pulse Resp B/P B/P Pulse O2 O2 Flow FiO2 Mean Ox Delivery Rate 11/03 1125 98 Room Air Room Air 11/03 1121 97.6 63 18 156/70 98 Room Air Room Air Laboratory Tests 11/03 1135 Chemistry Sodium (137 - 145 mmol/L) 143 Potassium (3.5 - 5.1 mmol/L) 4.1 Chloride (98 - 107 mmol/L) 103 Carbon Dioxide (22 - 30 mmol/L) 20 L Anion Gap (5 - 16) 20 H BUN (7 - 17 mg/dL) 42 H Creatinine (0.5 - 1.0 mg/dL) 6.0 *H Estimated GFR (>60 ml/min) 7 L BUN/Creatinine Ratio (7 - 25 %) 7.0 Glucose (65 - 99 mg/dL) 78 Lactic Acid (0.7 - 2.1 mmol/L) 1.9 Calcium (8.4 - 10.2 mg/dL) 8.6 Total Bilirubin (0.2 - 1.3 mg/dL) 0.9 AST (14 - 36 U/L) 32 ALT (9 - 52 U/L) 32 Alkaline Phosphatase (<127 U/L) 110 Troponin I (< 0.11 ng/ml) 0.21 *H Mmc-A-Lfrptgswlby Pept (<125 pg/mL) > 22246 H Total Protein (6.3 - 8.2 g/dL) 6.0 L Albumin (3.5 - 5.0 g/dL) 3.3 L Globulin (1.9 - 4.2 gm/dL) 2.7 Albumin/Globulin Ratio (1.1 - 2.2 %) 1.2 Coagulation PT (9.4 - 12.5 SEC) 13.2 H INR (0.90 - 1.19) 1.21 H APTT (25 - 37 SEC) 20 L Hematology CBC w Diff MAN DIFF ORDERED WBC (4.8 - 10.8 /CUMM) 24.2 H RBC (4.20 - 5.40 /CUMM) 3.85 L Hgb (12.0 - 16.0 G/DL) 11.8 L Hct (37 - 47 %) 35.1 L MCV (81.0 - 99.0 FL) 91.2 MCH (27.0 - 31.0 PG) 30.7 MCHC (33.0 - 37.0 G/DL) 33.7 RDW (11.5 - 14.5 %) 15.4 H Plt Count (130 - 400 /CUMM) 447 H MPV (7.4 - 10.4 FL) 8.0 Gran % (42.2 - 75.2 %) 67.9 Lymphocytes % (20.5 - 51.1 %) 25.5 Monocytes % (1.7 - 9.3 %) 6.4 Eosinophils % (0 - 5 %) 0.2 Basophils % (0.0 - 2.0 %) 0 Absolute Granulocytes (1.4 - 6.5 /CUMM) 16.4 H Segmented Neutrophils (42.2 - 75.2 %) 85 H Absolute Lymphocytes (1.2 - 3.4 /CUMM) 6.2 H Lymphocytes (20.5 - 51.1 %) 13 L Monocytes (1.7 - 9.3 %) 2 Absolute Monocytes (0.10 - 0.60 /CUMM) 1.6 H Absolute Eosinophils (0.0 - 0.7 /CUMM) 0.1 Absolute Basophils (0.0 - 0.2 /CUMM) 0 Platelet Estimate (ADEQUATE) VERIFIED BY SMEAR Normocytic RBCs VERIFIED Normochromic RBCs VERIFIED Toxicology Digoxin (0.8 - 2.0 ng/mL) 1.3 PE: Patient is a fragile looking lady, who is alert and oriented x3. She seems tired and can't recall most of her PMH. On lung auscultation, slight wheezing was heard. Her skin was dry and full of hematomas. When pressed, she complained of BL tenderness. She also complained of neck tenderness and seemed in overall pain. She had an irregular, dark spot with multiple colors on her left cheek. Rest of the examination couldn't be done because the patient was feeling uncomfortable (pain and weakness). Results Results: Laboratory Tests 11/03/17 1135: Anion Gap 20 H, Estimated GFR 7 L, BUN/Creatinine Ratio 7.0, Glucose 78, Lactic Acid 1.9, Calcium 8.6, Total Bilirubin 0.9, AST 32, ALT 32, Alkaline Phosphatase 110, Troponin I 0.21 *H, Zsr-I-Mplxhjhgkyc Pept > 82117 H, Total Protein 6.0 L, Albumin 3.3 L, Globulin 2.7, Albumin/Globulin Ratio 1.2, PT 13.2 H, INR 1.21 H, APTT 20 L, CBC w Diff MAN DIFF ORDERED, RBC 3.85 L, MCV 91.2, MCH 30.7, MCHC 33.7, RDW 15.4 H, MPV 8.0, Gran % 67.9, Lymphocytes % 25.5 , Monocytes % 6.4, Eosinophils % 0.2, Basophils % 0, Absolute Granulocytes 16.4 H, Segmented Neutrophils 85 H, Absolute Lymphocytes 6.2 H, Lymphocytes 13 L, Monocytes 2, Absolute Monocytes 1.6 H, Absolute Eosinophils 0.1, Absolute Basophils 0, Platelet Estimate VERIFIED BY SMEAR, Normocytic RBCs VERIFIED, Normochromic RBCs VERIFIED, Digoxin 1.3 Microbiology 11/03 1505 URINE ROUT: Urine Culture - ORD 11/03 1452 LOWER RESP: Respiratory Culture - ORD 11/03 1452 LOWER RESP: Gram Stain - ORD 11/03 1451 URINE ROUT: Legionella Antigen - ORD 11/03 1451 URINE ROUT: Streptococcus pneumoniae Antigen (M - ORD 11/03 1451 NASOPHARYN: Influenza Virus A & B Rapid Smear - ORD 11/03 1230 BLOOD: Blood Culture - RECD 11/03 1209 BLOOD: Blood Culture - CAN Cancelled: Imaging: CXR: IMPRESSION: Stable examination. Cardiomegaly. No overt consolidative disease or effusion. Assessment/Plan Assessment: Ms. Weiner is a 81 y/o female with a PMH significant for end-stage renal disease on dialysis (followed by Dr. Lujan), CVA, TIA, CAD, AAA s/p stent, afib (not on Coumadin), splenectomy, chronic leukocytosis, severe PHTN, HTN that comes to ED BIBA d/t feeling "cold and weak". She was scheduled to get her dialysis today and didn't want to go because "the place is too cold". She states that she doesn't know the onset of symptoms, but her complains have been constant for the past couple of days. The weakness have been associated with cough which produces a small amount of bright yellow sputum. She also complains of a 6/10 sharp pain in the right side of her chest which doesn't radiate anywhere, nothing makes it worse, but lying on her left side makes it better. She denies confusion, fevers, chest pain or dizziness. She does report chills, pain on urination (which has gone on since she started dialysis) and a temporal dull headache on her right side. Labs on admission were significant for WBC of 24.2, creatinine of 6, PBNP >31023 and Troponins of 0.21. EKG didn't show any changes. Problem list and plan: 1. Weakness/cough/leukocytosis: Patient was thought to have PNA so she was placed on Levofloxacin which didn't improve her status. Yesterday she was switched to doxycycline. Given that the patient is failing these treatments, a resistant pathogen, an atypical one or a viral etiology should be considered. Leukocytosis confirms our suspicion. The fact that our patient is immunocompromised and hasn't had her pneumococcal or flu vaccine, puts her at risk of being infected by these microbes. A CT is going to be performed as the CXR was inconclusive, but the symptoms suggest a respiratory source (chills, cough, sick contact). Another source of infection could be a UTI (patient does report pain on urination) or an old catheter that she has placed (which doesn't look infected but seems to have been there for a while). Dr. Meyers was called and he suspects the catheter could be the etiology. For now, the patient will be placed on Vanco and Ceftazidime which will cover Gram + (including MRSA), Gram - and pseudomonas. Blood and sputum cultures were collected. UA is pending, so is the urinary Ag. Patient education on the importance of vaccinations on patients with splenectomy is crucial. 2. Elevated troponins/PBNP: Patient reports some chest pain but it seems to be more pleuritic in nature. EKG was not significant. For now, trend troponins as it most likely is the result of respiratory compromise on an already scarred heart. 3. ESRD: Patient is currently receiving the dialysis that she missed this morning, so creatinine levels should return to her baseline. Dr. Sousa is on the case. 4. Myalgias?/URIBE: Give tylenol as needed, no NSAIDS as her kidneys are compromised.
--- NOTE | 2017-11-03 16:29 | Admission Certification ---
Admission Certification Certification Statement - As attending physician, I certify that at the time of - admission, based on clinical presentation, severity of - symptoms, need for further diagnostic testing and - therapeutic interventions, and risk of adverse outcomes - without in-hospital treatment, in my clinical assessment, - this patient requires an acute hospital stay for a minimum - of two nights or longer. I have also considered psychsocial - factors such as support system, advanced age, financial - issues, cognitive issues, and failed out-patient treatments, - past re-admission history, safety of patient, and lack of - compliance as applicable. Specific rationale supporting this admission is: Weakness might leukocytosis and possible pneumonia not responding to by mouth antibiotics chronic renal failure on hemodialysis
--- NOTE | 2017-11-03 16:32 | PN- Att Addend ---
Attending Addendum Attending Brief Note 81-year-old white female resident of [facility] with history of chronic renal insufficiency on hemodialysis 3 times a week and many other comorbidities that has not been feeling well for several days has had one ER visit and had been on by mouth antibiotics but not feeling any better comes back to the ER by her white count is higher than usual. She might have a pneumonia patient was admitted, her hemodialysis was started will be going for CT scan of the chest with infectious diseases suggested what antibiotics to use after all the cultures were obtained Current Medications Sig/Margaret Start time Last Medication Dose Route Stop Time Status Admin Acetaminophen 500 MG Q6P PRN 11/03 1630 UNVr PO Aspirin 0 .STK-MED ONE 11/03 1234 DC PO Aspirin 325 MG ONCE ONE 11/03 1230 DC 11/03 PO 11/03 1231 1236 Aspirin Buffered 81 MG DAILY 11/04 0900 UNVr PO Atorvastatin Calcium 40 MG QPM 11/03 2100 UNVr PO Bisacodyl 5 MG DAILY 11/04 0900 UNVr PO Ceftazidime 500 MG Q24H 11/03 1600 AC IV Diclofenac Sodium 1 ALEX 4 TIMES/DAY PRN 11/03 1615 UNVr TOP Digoxin 0.0625 MG 1700 11/03 1700 UNVr PO Diltiazem HCl 60 MG Q8 11/03 1616 UNVr PO Epoetin Tee 4,000 UNITS 11/06 0900 UNVr IV Ezetimibe 10 MG DAILY 11/04 0900 UNVr PO Fish Oil 1,050 MG DAILY 11/04 0900 UNVr PO Folic Acid 1 MG DAILY 11/04 0900 UNVr PO Guaifenesin 600 MG Q12 11/03 2100 UNVr PO Lactobacillus 1 CAP DAILY 11/04 0900 UNVr Acidophilus PO Multivitamins 1 TAB DAILY 11/04 0900 UNVr PO Omeprazole 20 MG DAILY 11/04 0900 UNVr PO Paricalcitol 6 MCG PER PROTOCL PRN 11/03 1330 AC IV Pyridoxine HCl 50 MG DAILY 11/04 0900 UNVr PO Sevelamer Carbonate 800 MG SuTuThSa 11/04 1630 UNVr PO Sevelamer Carbonate 1,600 MG 1700 11/03 1700 UNVr PO Sevelamer Carbonate 800 MG MoWeFr 11/03 1630 UNVr PO Vancomycin HCl 750 MG ONCE ONE 11/03 1545 AC Sodium Chloride 250 ML IV 11/03 1644 Laboratory Tests 11/03/17 1135: Anion Gap 20 H, Estimated GFR 7 L, BUN/Creatinine Ratio 7.0, Glucose 78, Lactic Acid 1.9, Calcium 8.6, Total Bilirubin 0.9, AST 32, ALT 32, Alkaline Phosphatase 110, Troponin I 0.21 *H, Box-A-Gfnkpoqwsta Pept > 92967 H, Total Protein 6.0 L, Albumin 3.3 L, Globulin 2.7, Albumin/Globulin Ratio 1.2, PT 13.2 H, INR 1.21 H, APTT 20 L, CBC w Diff MAN DIFF ORDERED, RBC 3.85 L, MCV 91.2, MCH 30.7, MCHC 33.7, RDW 15.4 H, MPV 8.0, Gran % 67.9, Lymphocytes % 25.5 , Monocytes % 6.4, Eosinophils % 0.2, Basophils % 0, Absolute Granulocytes 16.4 H, Segmented Neutrophils 85 H, Absolute Lymphocytes 6.2 H, Lymphocytes 13 L, Monocytes 2, Absolute Monocytes 1.6 H, Absolute Eosinophils 0.1, Absolute Basophils 0, Platelet Estimate VERIFIED BY SMEAR, Normocytic RBCs VERIFIED, Normochromic RBCs VERIFIED, Digoxin 1.3 Microbiology Date/Time Procedure - Status Source Growth 11/03 1505 Urine Culture - COLB URINE ROUT 11/03 1452 Respiratory Culture - COLB LOWER RESP 11/03 1452 Gram Stain - COLB LOWER RESP 11/03 1451 Legionella Antigen - COLB URINE ROUT 11/03 1451 Streptococcus pneumoniae Antigen (M - COLB URINE ROUT 11/03 1451 Influenza Virus A & B Rapid Smear - COLB NASOPHARYN 11/03 1230 Blood Culture - RECD BLOOD 11/03 1209 Blood Culture - CAN BLOOD Cancelled: Vital Signs Date Time Temp Pulse Resp B/P B/P Pulse O2 O2 Flow FiO2 Mean Ox Delivery Rate 11/03 1125 98 Room Air Room Air 11/03 1121 97.6 63 18 156/70 98 Room Air Room Air Intake & Output 11/03 1600 Intake Total 50 Output Total Balance 50 Intake, Oral 50 Patient 89 lb 15.99 oz Weight Weight Reported by Patient Measurement Method
--- NOTE | 2017-11-03 17:02 | PN- Student ---
Subjective Subjective: Student H&P HPI: (from patient, nominal reliability) Patient is an 81 YOF BIBA with a chief complaint of fatigue and chills. She is unclear when exactly the symptoms started, but they have been present at least two days. On questioning, she describes a moderate sharp pain in her right chest that is non-radiating, worse when she lays on that side, and better when she lays on the left. She has had a cough recently that is productive of a small amount of yellow sputum. There are numerous people where she lives who have been sick lately, including her neighbor who had pneumonia. Additionally, she states than although she does not make much urine, it casper whenever she does urinate. She denies any abdominal pain, left sided chest pressure, or N/V/D. Patient has been in the hospital multiple times, with her most recent visit being on the due to missing dialysis. She has been on antibiotics recently for pneumonia - first levofloxacin which was switched yesterday to doxycycline. PMH: ESRD, AFIB, HTN, CVA, TIA, CAD w/ NV, AAA w/ stent, thrombocytopenia, OA PSH: s/p splenectomy, hysterectomy, AAA repair Home Meds: Acetaminophen Aspirin Atorvastatin Calcium Bisacodyl Diclofenac Sodium Digoxin Diltiazem HCl Doxycycline Hyclate Epoetin Tee Ezetimibe Fluticasone Propionate Folic Acid Guaifenesin Metoprolol Tartrate Midodrine HCl Nephro-Vitamins Nitroglycerin Omeprazole Pyridoxine HCl Sevelamer Carbonate FH: Father - heart disease SH: Assisted living No current tobacco use, smoking history Denies ETOH use Denies illicit drug use Objective Objective: On physical exam, the patient is covered in blankets currently undergoing dialysis. She is alert and oriented giving appropriate responses to questions and speaking in full sentances. Pupils are equal, anicteric sclera, MMM, one rotten tooth noted. Neck is supple with no JVD or lymphadenopathy, but some tenderness is present. She is able to touch her chin to her chest. Scattered wheezing on pulmonary exam, unable to auscultate heart sounds. Diffuse echymosis on all four limbs. Lower extremities also TTP. One small open sore noted on left lower extremity. Chest X-ray
[2017-11-03 18:09] VITALS: BP 142/88
--- NOTE | 2017-11-03 18:20 | CT SCAN REPORT ---
EXAMINATION: CT CHEST WITHOUT CONTRAST CLINICAL INFORMATION: Cough, fever and elevated WBC level. Pneumonia. COMPARISON: CXR from 11/03/2017 TECHNIQUE: Multidetector volumetric CT imaging of the chest was done. Axial MIP volume rendering provided. Sagittal and coronal reformatted images were obtained. DLP: 167 mGy-cm FINDINGS: LUNGS AND PLEURA: Trachea and central airways are widely patent and normal in caliber. Moderate centrilobular emphysema. Findings in the right lung include a small, 0.3 cm groundglass nodular opacity in the anterior aspect of right upper lobe (image 107, series 4) and a punctate calcified granuloma within the right upper lobe (image 155, series 4). There is a punctate calcified granuloma of the left lung apex (image 66, series 4). Trace bilateral pleural effusions (right larger than left) and mild atelectasis in posterior aspect of each lower lobe. Minimal atelectasis within the inferior lingula. No pulmonary mass, focal consolidation or pulmonary edema. No pneumothorax. MEDIASTINUM: Cardiomegaly with multichamber cardiac enlargement. Atherosclerotic calcification of coronary arteries. Atherosclerosis of thoracic aorta without aneurysm. No pericardial effusion. The esophagus has normal wall thickness. No significant findings in the partially visualized thyroid gland. LYMPHATICS: No pathologic sized axillary, hilar or mediastinal lymph nodes. UPPER ABDOMEN: Cholelithiasis. Moderate to severe cortical atrophy of the partially visualized kidneys. There are a few cysts of the left kidney, largest measuring 2.1 cm AP. Atherosclerosis of abdominal aorta and branch vessels. The proximal portion of the aortic stent is included in the [id number]. SKELETAL AND CHEST WALL: No acute findings within the degenerated, hyperkyphotic thoracic spine. No aggressive osseous lesions. IMPRESSION: 1. No evidence of pneumonia. 2. Cardiomegaly and atherosclerotic disease of coronary arteries. No acute pulmonary edema. Trace bilateral pleural effusions and mild bibasilar atelectasis are noted. 3. Moderate centrilobular emphysema. 4. Cholelithiasis.
--- NOTE | 2017-11-03 19:34 | Cons- Cardiology ---
General Information and HPI Consulting Request Date of Consult: 11/03/17 Requested By: Jairo Nava MD Reason for Consult: Positive troponin I. Source of Information: patient, old records Exam Limitations: poor historian History of Present Illness: Mrs. Ana Weiner is an 81-year-old female with a history of previous obesity, hypertension, dyslipidemia, previous strokes (March 1995; April 1996), abdominal aortic aneurysm s/p endovascular stent placement (05/2004), left ventricular hypertrophy, coronary artery disease (s/p inferior STEMI 05/25/2003 treated with thrombolytics; recurrent chest pain s/p cardiac catheterization 06/02/2003 with PCI/PRITI [Cypher] stent deployments to LAD/LCx), RBBB, chronic atrial fibrillation without anticoagulation given prohibitive risk , nephrolithiasis, recurrent urinary tract infections, ESRD on HD and chronic anemia who we are asked to evaluate in regard to a positive troponin I following her admission for suspected pneumonia. We performed a cardiology consultation at the time of her last hospitalization ( 03/14-03/20/2017) to help assess her suitability for continued anticoagulation on a background of ESRD on HD, chronic anemia, recent epistaxis, recent fall with continued fall risk, heme positive stool, difficult to manage INR, etc. and the consensus was that the benefit of continued anticoagulation given her high [id number] Score was outweighed by its risks and anticoagulation was discontinued. At present she admits to weakness and cough, but denies any chest discomfort, palpitations, shortness of breath, lower extremity edema, etc. She also admitted to some right abdominal discomfort over the past couple days and chills that have resolved. Allergies/Medications Allergies: Coded Allergies: NO KNOWN ALLERGIES (01/18/16) Home Med List: Acetaminophen (Tylenol Arthritis) 650 MG TABLET.ER 1 TAB PO BID PAIN ( Reported) Aspirin (Ecotrin*) 81 MG TABLET.DR 1 TAB PO DAILY HEART HEALTH (Reported) Atorvastatin Calcium 40 MG TABLET 1 TAB PO QPM CHOLESTEROL (Reported) Bisacodyl (Women's Laxative) 5 MG TABLET 1 TAB PO DAILY constipation ( Reported) Diclofenac Sodium (Voltaren) 1 % GEL..GRAM. 1 GM TOP 4 TIMES/DAY KNEE PAIN ( Reported) apply to affected area(s) Digoxin (Lanoxin) 125 MCG TABLET 0.0625 MG PO 1700 Heart Health Every 24h Diltiazem HCl (Cardizem) 60 MG TABLET 1 TAB PO Q8 HEART (Reported) Epoetin Tee (Epogen) 2,000 UNIT/ML VIAL 4,000 IV Monday dialysis (Reported) Ezetimibe (Zetia) 10 MG TABLET 1 TAB PO DAILY CHOLESTEROL (Reported) Folic Acid 0.4 MG TABLET 1 TAB PO DAILY SUPPLEMENT (Reported) Guaifenesin (Mucus Relief) 400 MG TABLET 2 TAB PO BID COLD (Reported) Lactobacillus Acidophilus (Acidophilus) 1 EACH CAPSULE 1 CAP PO DAILY supplement (Reported) Midodrine HCl 2.5 MG TABLET 1 TAB PO Monday hypotension (Reported) Nephro-Vitamins (Nephro-Katlyn Tablet) 0.8 MG TABLET 1 TAB PO DAILY supplement (Reported) [place]-3 Fatty Acids/Fish Oil (Fish Oil 1,000 MG Capsule) 340 MG-1,000 MG CAPSULE 1 CAP PO DAILY SUPPLEMENT (Reported) Omeprazole 20 MG CAPSULE.DR 1 CAP PO DAILY GI (Reported) Pyridoxine HCl (Vitamin B-6) 50 MG TABLET 1 TAB PO DAILY SUPPLEMENT (Reported ) Sevelamer Carbonate (Renvela) 800 MG TABLET 2 TAB PO 1700 SUPPLEMENT ( Reported) Sevelamer Carbonate (Renvela) 800 MG TABLET 1 TAB PO SuTuThSa SUPPLEMENT ( Reported) Sevelamer Carbonate (Renvela) 800 MG TABLET 1 TAB PO MoWeFr SUPPLEMENT ( Reported) Review of Systems Review of Systems: A 14 point system review was obtained was noncontributory, other than as above. 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 yes Exam & Diagnostic Data Vital Signs and I&O Vital Signs Date Time Temp Pulse Resp B/P B/P Pulse O2 O2 Flow FiO2 Mean Ox Delivery Rate 11/03 1844 82 142/88 11/03 1809 97.7 82 26 142/88 98 11/03 1125 98 Room Air Room Air 11/03 1121 97.6 63 18 156/70 98 Room Air Room Air Intake & Output 11/03 0811/03 0000 11/02 0811/02 0000 Intake Total 50 Output Total Balance 50 Intake, Oral 50 Patient 89 lb 15.99 oz Weight Weight Reported by Patient Measurement Method Physical Exam: Chronically ill-appearing elderly female with nasal oxygen in place in no acute distress. Vital signs: See above. HEENT: Normocephalic, atraumatic, EOMI, slightly dry mucous membranes. Neck: No JVD, no bruits. Lungs: Decreased breath sounds and occasional rhonchi. Heart: S1, S2 (irregularly, irregular) with a grade 2/6 systolic murmur. No gallop or rub. Abdomen: Soft, nontender, positive bowel sounds. Extremities: No edema. Labs/Jorge Results: Laboratory Tests 11/03 11/03 11/03 1620 1400 1135 Chemistry Sodium (137 - 145 mmol/L) 143 Potassium (3.5 - 5.1 mmol/L) 4.1 Chloride (98 - 107 mmol/L) 103 Carbon Dioxide (22 - 30 mmol/L) 20 L Anion Gap (5 - 16) 20 H BUN (7 - 17 mg/dL) 42 H Creatinine (0.5 - 1.0 mg/dL) 6.0 *H Estimated GFR (>60 ml/min) 7 L BUN/Creatinine Ratio (7 - 25 %) 7.0 Glucose (65 - 99 mg/dL) 78 Lactic Acid (0.7 - 2.1 mmol/L) 0.6 L 1.9 Calcium (8.4 - 10.2 mg/dL) 8.6 Total Bilirubin (0.2 - 1.3 mg/dL) 0.9 AST (14 - 36 U/L) 32 ALT (9 - 52 U/L) 32 Alkaline Phosphatase (<127 U/L) 110 Troponin I (< 0.11 ng/ml) 0.21 *H [id number] Pept (<125 pg/mL) > 41274 H Total Protein (6.3 - 8.2 g/dL) 6.0 L Albumin (3.5 - 5.0 g/dL) 3.3 L Globulin (1.9 - 4.2 gm/dL) 2.7 Albumin/Globulin Ratio (1.1 - 2.2 %) 1.2 Coagulation PT (9.4 - 12.5 SEC) 13.2 H INR (0.90 - 1.19) 1.21 H APTT (25 - 37 SEC) 20 L Hematology CBC w Diff MAN DIFF ORDERED WBC (4.8 - 10.8 /CUMM) 24.2 H RBC (4.20 - 5.40 /CUMM) 3.85 L Hgb (12.0 - 16.0 G/DL) 11.8 L Hct (37 - 47 %) 35.1 L MCV (81.0 - 99.0 FL) 91.2 MCH (27.0 - 31.0 PG) 30.7 MCHC (33.0 - 37.0 G/DL) 33.7 RDW (11.5 - 14.5 %) 15.4 H Plt Count (130 - 400 /CUMM) 447 H MPV (7.4 - 10.4 FL) 8.0 Gran % (42.2 - 75.2 %) 67.9 Lymphocytes % (20.5 - 51.1 %) 25.5 Monocytes % (1.7 - 9.3 %) 6.4 Eosinophils % (0 - 5 %) 0.2 Basophils % (0.0 - 2.0 %) 0 Absolute Granulocytes (1.4 - 6.5 /CUMM) 16.4 H Segmented Neutrophils (42.2 - 75.2 %) 85 H Absolute Lymphocytes (1.2 - 3.4 /CUMM) 6.2 H Lymphocytes (20.5 - 51.1 %) 13 L Monocytes (1.7 - 9.3 %) 2 Absolute Monocytes (0.10 - 0.60 /CUMM) 1.6 H Absolute Eosinophils (0.0 - 0.7 /CUMM) 0.1 Absolute Basophils (0.0 - 0.2 /CUMM) 0 Platelet Estimate (ADEQUATE) VERIFIED BY SMEAR Normocytic RBCs VERIFIED Normochromic RBCs VERIFIED Serology Hep Bs Antigen Pending Hep Bs Antibody Pending Toxicology Digoxin (0.8 - 2.0 ng/mL) 1.3 Diagnostic Data EKG Results 11/03/2017: Atrial fibrillation with a normal mean ventricular response, RBBB, nondiagnostic repolarization abnormalities. No significant change when compared to previous tracing from 09/29/2017. CXR Results 11/03/2017: Stable examination. Cardiomegaly. No overt consolidative disease or effusion. Other Results Chest CT 11/03/2017: 1. No evidence of pneumonia. 2. Cardiomegaly and atherosclerotic disease of coronary arteries. No acute pulmonary edema. Trace bilateral pleural effusions and mild bibasilar atelectasis are noted. 3. Moderate centrilobular emphysema. 4. Cholelithiasis. Assessment/Plan Assessment/Plan [id number] w/ hx previous obesity, HTN, HLD, previous strokes (03/1995; 04/1996) , AAA s/p endovascular stent (08/20/2004), LVH, CAD (s/p inf STEMI 05/25/2003 Rx 'd w/ thrombolytics; recurrent CP s/p cardiac cath 06/02/2003 w/ PCI/PRITI [Cypher ] stent deployments to LAD/LCx), RBBB, ch AF w/o AC, nephrolithiasis, recurrent UTIs, ESRD on HD, & ch anemia on KEVON who we are asked to evaluate in regard to a pos troponin I following her admission for suspected PNA. Suspect the etiology for her elevated troponin I is multifactorial and includes a possible type II DE, defined as an DE consequent to increased oxygen demand or decreased supply (e.g., coronary endothelial dysfunction, coronary artery spasm, coronary artery embolus, tachycardia/bradycardia, anemia, respiratory failure, hyper or hypotension, etc.), as well as, her PNA, CKD, AF, LVH, etc. and not an acute coronary syndrome. Fortunately, she is clinically and hemodynamically stable at this time, feels a little better, as far as, her weakness, chills, and cough and denies any further right side abdominal pain. Her chest CT, however, revealed evidence of cholelithiasis. Recommendations: * Admit to telemetry, follow-up ECGs, trend troponins. * Follow-up cultures and continue empiric antimicrobial therapy given concerns of pneumonia. * Given previous issues with epistaxis, heme positive stool, etc. would hold off on IV heparin unless she develops symptoms more suggestive of an acute coronary syndrome, has electrocardiographic changes, etc. * Consider abdominal ultrasound or abdominal/pelvic CT if further right-sided abdominal pain. * DVT prophylaxis. Further recommendations will follow, Thank you. Consult Acknowledgment - Thank you for your consult request.
[2017-11-03 22:50] VITALS: BP 96/64
[2017-11-04 06:48] VITALS: BP 116/64
[2017-11-04 08:23] LABS: ABSOLUTE BASOPHIL COUNT 0 /CUMM (0.0-0.2); ABSOLUTE EOSINOPHIL COUNT 0.2 /CUMM (0.0-0.7); ABSOLUTE GRANULOCYTE CT 11.9 /CUMM (1.4-6.5); ABSOLUTE LYMPH COUNT 1.7 /CUMM (1.2-3.4); ABSOLUTE MONOCYTE COUNT 1.5 /CUMM (0.10-0.60); BASOPHIL % 0.2 % (0.0-2.0); EOSINOPHIL % 1.2 % (0-5); GRANULOCYTE % 77.7 % (42.2-75.2); HEMATOCRIT 32.2 % (37-47); MEAN CORPUSCULAR HGB CONC 33.6 G/DL (33.0-37.0); MEAN CORPUSCULAR VOLUME 92.2 FL (81.0-99.0); MEAN PLATELET VOLUME 8.2 FL (7.4-10.4); PLATELET COUNT 373 /CUMM (130-400); RBC DISTRIBUTION WIDTH 15.9 % (11.5-14.5); RED BLOOD CELL CT 3.49 /CUMM (4.20-5.40); WHITE BLOOD CELL COUNT 15.3 /CUMM (4.8-10.8)
--- NOTE | 2017-11-04 10:29 | PN- Student ---
Subjective Subjective: Patient states that she is feeling more tired than yesterday. She does reports that her breathing and cough are better and that she slept all night long. She didn't eat breakfast this morning and says that she doesn't have any appetite. She drank a little water and said that she was able to keep it down with no nausea. She says she doesn't want a wolf and that they weren't able to collect her urine because she barely produces any, but if she feels like urinating she will let the nurse know so that her urine can be collected. Objective Objective: Vital Signs Date Time Temp Pulse Resp B/P B/P Pulse O2 O2 Flow FiO2 Mean Ox Delivery Rate 11/04 0820 Nasal 2.0L Cannula 11/04 0648 98.7 73 20 116/64 96 Nasal Cannula 11/04 0602 83 116/64 11/03 2259 Nasal 2.0L Cannula 11/03 2250 97.7 84 23 96/64 98 11/03 2144 Nasal 2.0L Cannula 11/03 2039 90 138/76 11/03 2008 94 144/80 11/03 1844 82 142/88 11/03 1809 97.7 82 26 142/88 98 11/03 1710 Nasal 2.0L Cannula 11/03 1125 98 Room Air Room Air 11/03 1121 97.6 63 18 156/70 98 Room Air Room Air ED Intake and Output 11/04 0000 11/03 1200 Intake Total 290 Output Total Balance 290 Intake, Oral 290 Number 1 Bowel Movements Patient 107 lb 89 lb 15.99 oz Weight Weight Reported by Patient Measurement Method Laboratory Tests 11/04 11/04 11/03 0630 0150 2111 Chemistry Sodium (137 - 145 mmol/L) 140 Potassium (3.5 - 5.1 mmol/L) 3.4 L Chloride (98 - 107 mmol/L) 102 Carbon Dioxide (22 - 30 mmol/L) 25 Anion Gap (5 - 16) 13 BUN (7 - 17 mg/dL) 23 H Creatinine (0.5 - 1.0 mg/dL) 3.4 H Estimated GFR (>60 ml/min) 13 L BUN/Creatinine Ratio (7 - 25 %) 6.8 L Troponin I (< 0.11 ng/ml) 0.17 *H 0.18 *H Hematology CBC w Diff NO MAN DIFF REQ WBC (4.8 - 10.8 /CUMM) 15.3 H RBC (4.20 - 5.40 /CUMM) 3.49 L Hgb (12.0 - 16.0 G/DL) 10.8 L Hct (37 - 47 %) 32.2 L MCV (81.0 - 99.0 FL) 92.2 MCH (27.0 - 31.0 PG) 31.0 MCHC (33.0 - 37.0 G/DL) 33.6 RDW (11.5 - 14.5 %) 15.9 H Plt Count (130 - 400 /CUMM) 373 MPV (7.4 - 10.4 FL) 8.2 Gran % (42.2 - 75.2 %) 77.7 H Lymphocytes % (20.5 - 51.1 %) 10.9 L Monocytes % (1.7 - 9.3 %) 10.0 H Eosinophils % (0 - 5 %) 1.2 Basophils % (0.0 - 2.0 %) 0.2 Absolute Granulocytes (1.4 - 6.5 /CUMM) 11.9 H Absolute Lymphocytes (1.2 - 3.4 /CUMM) 1.7 Absolute Monocytes (0.10 - 0.60 /CUMM) 1.5 H Absolute Eosinophils (0.0 - 0.7 /CUMM) 0.2 Absolute Basophils (0.0 - 0.2 /CUMM) 0 11/03 11/03 1620 1400 Chemistry Lactic Acid (0.7 - 2.1 mmol/L) 0.6 L Serology Hep Bs Antigen (NONREACTIVE) NONREACTIVE Hep Bs Antibody (NONREACTIVE) NONREACTIVE 11/03 1135 Chemistry Sodium (137 - 145 mmol/L) 143 Potassium (3.5 - 5.1 mmol/L) 4.1 Chloride (98 - 107 mmol/L) 103 Carbon Dioxide (22 - 30 mmol/L) 20 L Anion Gap (5 - 16) 20 H BUN (7 - 17 mg/dL) 42 H Creatinine (0.5 - 1.0 mg/dL) 6.0 *H Estimated GFR (>60 ml/min) 7 L BUN/Creatinine Ratio (7 - 25 %) 7.0 Glucose (65 - 99 mg/dL) 78 Lactic Acid (0.7 - 2.1 mmol/L) 1.9 Calcium (8.4 - 10.2 mg/dL) 8.6 Total Bilirubin (0.2 - 1.3 mg/dL) 0.9 AST (14 - 36 U/L) 32 ALT (9 - 52 U/L) 32 Alkaline Phosphatase (<127 U/L) 110 Troponin I (< 0.11 ng/ml) 0.21 *H [id number] Pept (<125 pg/mL) > 97247 H Total Protein (6.3 - 8.2 g/dL) 6.0 L Albumin (3.5 - 5.0 g/dL) 3.3 L Globulin (1.9 - 4.2 gm/dL) 2.7 Albumin/Globulin Ratio (1.1 - 2.2 %) 1.2 Coagulation PT (9.4 - 12.5 SEC) 13.2 H INR (0.90 - 1.19) 1.21 H APTT (25 - 37 SEC) 20 L Hematology CBC w Diff MAN DIFF ORDERED WBC (4.8 - 10.8 /CUMM) 24.2 H RBC (4.20 - 5.40 /CUMM) 3.85 L Hgb (12.0 - 16.0 G/DL) 11.8 L Hct (37 - 47 %) 35.1 L MCV (81.0 - 99.0 FL) 91.2 MCH (27.0 - 31.0 PG) 30.7 MCHC (33.0 - 37.0 G/DL) 33.7 RDW (11.5 - 14.5 %) 15.4 H Plt Count (130 - 400 /CUMM) 447 H MPV (7.4 - 10.4 FL) 8.0 Gran % (42.2 - 75.2 %) 67.9 Lymphocytes % (20.5 - 51.1 %) 25.5 Monocytes % (1.7 - 9.3 %) 6.4 Eosinophils % (0 - 5 %) 0.2 Basophils % (0.0 - 2.0 %) 0 Absolute Granulocytes (1.4 - 6.5 /CUMM) 16.4 H Segmented Neutrophils (42.2 - 75.2 %) 85 H Absolute Lymphocytes (1.2 - 3.4 /CUMM) 6.2 H Lymphocytes (20.5 - 51.1 %) 13 L Monocytes (1.7 - 9.3 %) 2 Absolute Monocytes (0.10 - 0.60 /CUMM) 1.6 H Absolute Eosinophils (0.0 - 0.7 /CUMM) 0.1 Absolute Basophils (0.0 - 0.2 /CUMM) 0 Platelet Estimate (ADEQUATE) VERIFIED BY SMEAR Normocytic RBCs VERIFIED Normochromic RBCs VERIFIED Toxicology Digoxin (0.8 - 2.0 ng/mL) 1.3 PE: Patient is a fragile looking lady, who is alert and oriented x3. She seems tired and very sleepy. On lung auscultation, slight wheezing was heard. Her skin was dry and full of hematomas. When pressed, she complained of BL tenderness. She also complained of neck tenderness and seemed in overall pain. She had an irregular, dark spot with multiple colors on her left cheek. Patient refused the rest of the examination as she was too sleepy and tired. Results Results: Laboratory Tests 11/04/17 0630: Anion Gap 13, Estimated GFR 13 L, BUN/Creatinine Ratio 6.8 L, CBC w Diff NO MAN DIFF REQ, RBC 3.49 L, MCV 92.2, MCH 31.0, MCHC 33.6, RDW 15.9 H, MPV 8.2, Gran % 77.7 H, Lymphocytes % 10.9 L, Monocytes % 10.0 H, Eosinophils % 1.2, Basophils % 0.2, Absolute Granulocytes 11.9 H, Absolute Lymphocytes 1.7, Absolute Monocytes 1.5 H, Absolute Eosinophils 0.2, Absolute Basophils 0 11/04/17 0150: Troponin I 0.17 *H 11/03/17 2111: Troponin I 0.18 *H 11/03/17 1620: Lactic Acid 0.6 L 11/03/17 1400: Hep Bs Antigen NONREACTIVE, Hep Bs Antibody NONREACTIVE 11/03/17 1135: Anion Gap 20 H, Estimated GFR 7 L, BUN/Creatinine Ratio 7.0, Glucose 78, Lactic Acid 1.9, Calcium 8.6, Total Bilirubin 0.9, AST 32, ALT 32, Alkaline Phosphatase 110, Troponin I 0.21 *H, Dwt-H-Knflhsxciob Pept > 68870 H, Total Protein 6.0 L, Albumin 3.3 L, Globulin 2.7, Albumin/Globulin Ratio 1.2, PT 13.2 H, INR 1.21 H, APTT 20 L, CBC w Diff MAN DIFF ORDERED, RBC 3.85 L, MCV 91.2, MCH 30.7, MCHC 33.7, RDW 15.4 H, MPV 8.0, Gran % 67.9, Lymphocytes % 25.5 , Monocytes % 6.4, Eosinophils % 0.2, Basophils % 0, Absolute Granulocytes 16.4 H, Segmented Neutrophils 85 H, Absolute Lymphocytes 6.2 H, Lymphocytes 13 L, Monocytes 2, Absolute Monocytes 1.6 H, Absolute Eosinophils 0.1, Absolute Basophils 0, Platelet Estimate VERIFIED BY SMEAR, Normocytic RBCs VERIFIED, Normochromic RBCs VERIFIED, Digoxin 1.3 Microbiology 11/03 1600 BLOOD: Blood Culture - RECD 11/03 1505 URINE ROUT: Urine Culture - COLB 11/03 1452 LOWER RESP: Respiratory Culture - COLB 11/03 1452 LOWER RESP: Gram Stain - COLB 11/03 1451 URINE ROUT: Legionella Antigen - COLB 11/03 1451 URINE ROUT: Streptococcus pneumoniae Antigen (M - COLB 11/03 1451 NASOPHARYN: Influenza Virus A & B Rapid Smear - COLB 11/03 1230 BLOOD: Blood Culture - RECD 11/03 1209 BLOOD: Blood Culture - CAN Cancelled: Imaging: Chest CT: IMPRESSION: 1. No evidence of pneumonia. 2. Cardiomegaly and atherosclerotic disease of coronary arteries. No acute pulmonary edema. Trace bilateral pleural effusions and mild bibasilar atelectasis are noted. 3. Moderate centrilobular emphysema. 4. Cholelithiasis. Assessment/Plan Assessment: Ms. Weiner is a 81 y/o female with a PMH significant for end-stage renal disease on dialysis (followed by Dr. Lujan), CVA, TIA, CAD, AAA s/p stent, afib (not on Coumadin), splenectomy, chronic leukocytosis, severe PHTN, HTN that comes to ED BIBA d/t feeling "cold and weak". She was scheduled to get her dialysis today and didn't want to go because "the place is too cold". She states that she doesn't know the onset of symptoms, but her complains have been constant for the past couple of days. The weakness have been associated with cough which produces a small amount of bright yellow sputum. She also complains of a 6/10 sharp pain in the right side of her chest which doesn't radiate anywhere, nothing makes it worse, but lying on her left side makes it better. She denies confusion, fevers, chest pain or dizziness. She does report chills, pain on urination (which has gone on since she started dialysis) and a temporal dull headache on her right side. Labs on admission were significant for WBC of 24.2, creatinine of 6, PBNP >34141 and Troponins of 0.21. EKG didn't show any changes. Problem list and plan: 1. Weakness/cough/leukocytosis: Chest CT didn't show any evidence of PNA. WBC count is better today (from 24.2 to 15.3), which tells us that the abx are being effective. The source of the infection is still unknown. Patient did complain on pain on urination so a UA should be done to rule out a UTI. It was ordered yesterday but the urine sample was never received. Another source of infection could be an old catheter that although it doesn't look infected, it does looks old. Catheter should be removed and AVF should be used for hemodialysis. Awaiting the results from the blood and sputum cultures and urinary Ag. Keep patient on Vanco and Ceftazidime. Educate the patient about the importance of vaccination on patients with splenectomy. 2. Elevated troponins/PBNP: Patient reports some chest pain but it seems to be more pleuritic in nature. EKG was not significant. Troponins are trending down. The raise of troponins is most likely from increased demand or decreased supply. Dr. Jimenez saw the patient yesterday and suggested not to administer IV heparin unless the patient presents with symptoms more suggestive of an acute coronary syndrome, has electrocardiographic changes, etc. 3. ESRD: Creatinine and BUN levels are back on the baseline. Nephro is on the case, follow up with their recommendations. 4. Myalgias?/URIBE: Give tylenol as needed, no NSAIDS as her kidneys are compromised.
--- NOTE | 2017-11-04 11:02 | PN- Housestaff ---
See Addendum Subjective Follow-up For: Leukocytosis, CKD, elevated troponin Tele-Events Since Last Visit: Atrial fibrillation, 6080 Subjective: No overnight events. The patient feels a little bit better but is tired this morning. She has no shortness of breath or chest pain at this time. Review of Systems Constitutional: Reports: see HPI. EENTM: Reports: no symptoms. Cardiovascular: Reports: no symptoms. Respiratory: Reports: no symptoms. Gastrointestinal: Reports: no symptoms. Genitourinary: Reports: no symptoms. Musculoskeletal: Reports: no symptoms. Skin: Reports: no symptoms. Neurological/Psychological: Reports: no symptoms. Hematologic/Endocrine: Reports: no symptoms. Immunologic/Allergic: Reports: no symptoms. Objective Last 24 Hrs of Vital Signs/I&O Vital Signs Date Time Temp Pulse Resp B/P B/P Pulse O2 O2 Flow FiO2 Mean Ox Delivery Rate 11/04 0820 Nasal 2.0L Cannula 11/04 0648 98.7 73 20 116/64 96 Nasal Cannula 11/04 0602 83 116/64 11/03 2259 Nasal 2.0L Cannula 11/03 2250 97.7 84 23 96/64 98 11/03 2144 Nasal 2.0L Cannula 11/03 2039 90 138/76 11/03 2008 94 144/80 11/03 1844 82 142/88 11/03 1809 97.7 82 26 142/88 98 11/03 1710 Nasal 2.0L Cannula 11/03 1125 98 Room Air Room Air 11/03 1121 97.6 63 18 156/70 98 Room Air Room Air Intake & Output 11/04 1600 11/04 0800 11/04 0000 Intake Total 120 240 Output Total Balance 120 240 Intake, Oral 120 240 Number 1 Bowel Movements Patient 48.704 kg Weight Physical Exam General Appearance: Alert, Oriented X3, Cooperative, No Acute Distress Cardiovascular: irregular Lungs: rhonci Abdomen: Normal Bowel Sounds, Soft, No Tenderness Extremities: No Edema, Normal Pulses, No Tenderness/Swelling Current Medications: Current Medications Sig/Margaret Start time Last Medication Dose Route Stop Time Status Admin Acetaminophen 650 MG Q6P PRN 11/03 1645 AC PO Acetaminophen 500 MG Q6P PRN 11/03 1630 AC PO Aspirin 0 .STK-MED ONE 11/03 1234 DC PO Aspirin 325 MG ONCE ONE 11/03 1230 DC 11/03 PO 11/03 1231 1236 Aspirin Buffered 81 MG DAILY 11/04 0900 AC 11/04 PO 0922 Atorvastatin Calcium 40 MG QPM 11/03 2100 AC 11/03 PO 2039 Bisacodyl 5 MG DAILY 11/04 0900 AC 11/04 PO 0922 Ceftazidime 500 MG Q24H 11/03 1600 AC 11/03 IV 1700 Diclofenac Sodium 1 ALEX 4 TIMES/DAY PRN 11/03 1615 AC 11/04 TOP 0602 Digoxin 0.0625 MG 1700 11/03 1700 AC 11/03 PO 2008 Diltiazem HCl 60 MG Q8 11/03 1616 AC 11/04 PO 0602 Epoetin Tee 4,000 UNITS Monday .. 11/06 0900 AC IV Ezetimibe 10 MG DAILY 11/04 0900 AC 11/04 PO 0922 Fish Oil 1,050 MG DAILY 11/04 0900 AC 11/04 PO 0921 Folic Acid 1 MG DAILY 11/04 0900 AC 11/04 PO 0922 Guaifenesin 600 MG Q12 11/03 2100 AC 11/04 PO 0921 Heparin Sodium 5,000 UNIT Q8 11/03 2200 AC 11/04 (Porcine) SC 0555 Lactobacillus 1 CAP DAILY 11/04 0900 AC 11/04 Acidophilus PO 0921 Multivitamins 1 TAB DAILY 11/04 0900 AC 11/04 PO 0922 Omeprazole 20 MG DAILY 11/04 0900 AC 11/04 PO 0921 Paricalcitol 6 MCG PER PROTOCL PRN 11/03 1330 AC IV Polyethylene Glycol 17 GM DAILY 11/04 0900 AC 11/04 PO 0922 Pyridoxine HCl 50 MG DAILY 11/04 0900 AC PO Sevelamer Carbonate 800 MG SuTuThSa 11/04 1630 AC PO Sevelamer Carbonate 1,600 MG 1700 11/03 1700 AC 11/03 PO 1844 Sevelamer Carbonate 800 MG MoWeFr 11/03 1630 AC 11/03 PO 1843 Vancomycin HCl 750 MG ONCE ONE 11/03 1545 DC 11/03 Sodium Chloride 250 ML IV 11/03 1644 1700 Last 24 Hrs of Lab/Jorge Results Last 24 Hrs of Labs/Mics: Laboratory Tests 11/04/17 0630: Anion Gap 13, Estimated GFR 13 L, BUN/Creatinine Ratio 6.8 L, CBC w Diff NO MAN DIFF REQ, RBC 3.49 L, MCV 92.2, MCH 31.0, MCHC 33.6, RDW 15.9 H, MPV 8.2, Gran % 77.7 H, Lymphocytes % 10.9 L, Monocytes % 10.0 H, Eosinophils % 1.2, Basophils % 0.2, Absolute Granulocytes 11.9 H, Absolute Lymphocytes 1.7, Absolute Monocytes 1.5 H, Absolute Eosinophils 0.2, Absolute Basophils 0 11/04/17 0150: Troponin I 0.17 *H 11/03/17 2111: Troponin I 0.18 *H 11/03/17 1620: Lactic Acid 0.6 L 11/03/17 1400: Hep Bs Antigen NONREACTIVE, Hep Bs Antibody NONREACTIVE 11/03/17 1135: Anion Gap 20 H, Estimated GFR 7 L, BUN/Creatinine Ratio 7.0, Glucose 78, Lactic Acid 1.9, Calcium 8.6, Total Bilirubin 0.9, AST 32, ALT 32, Alkaline Phosphatase 110, Troponin I 0.21 *H, [id number] Pept > 24751 H, Total Protein 6.0 L, Albumin 3.3 L, Globulin 2.7, Albumin/Globulin Ratio 1.2, PT 13.2 H, INR 1.21 H, APTT 20 L, CBC w Diff MAN DIFF ORDERED, RBC 3.85 L, MCV 91.2, MCH 30.7, MCHC 33.7, RDW 15.4 H, MPV 8.0, Gran % 67.9, Lymphocytes % 25.5 , Monocytes % 6.4, Eosinophils % 0.2, Basophils % 0, Absolute Granulocytes 16.4 H, Segmented Neutrophils 85 H, Absolute Lymphocytes 6.2 H, Lymphocytes 13 L, Monocytes 2, Absolute Monocytes 1.6 H, Absolute Eosinophils 0.1, Absolute Basophils 0, Platelet Estimate VERIFIED BY SMEAR, Normocytic RBCs VERIFIED, Normochromic RBCs VERIFIED, Digoxin 1.3 Microbiology 11/03 1600 BLOOD: Blood Culture - RECD 11/03 1505 URINE ROUT: Urine Culture - COLB 11/03 145 LOWER RESP: Respiratory Culture - COLB 11/03 145 LOWER RESP: Gram Stain - COLB 11/03 145 URINE ROUT: Legionella Antigen - COLB 11/03 145 URINE ROUT: Streptococcus pneumoniae Antigen (M - COLB 11/03 1451 NASOPHARYN: Influenza Virus A & B Rapid Smear - COLB 11/03 1230 BLOOD: Blood Culture - RECD 11/03 1209 BLOOD: Blood Culture - CAN Cancelled: Assessment/Plan Assessment: Ms. Weiner is an 81-year-old female with past medical history of CVA, aortic aneurysm, atrial fibrillation not on anticoagulation followed by Dr. Jimenez, coronary artery disease status post STEMI, hypertension, chronic kidney disease on hemodialysis followed with Dr. Tee, osteoarthritis, AAA status post repair, ITP status post splenectomy, and severe pulmonary hypertension who presents with chills and weakness. Problem List: 1. Leukocytosis 2. Chronic kidney disease on hemodialysis 3. Elevated troponin 4. Normocytic anemia #Leukocytosis: Patient has a chronically elevated white blood cell count but is now presenting with chills, shortness of breath, and cough in the setting of an even higher white count. I suspect that she is infected but the source is unclear. Given her symptoms, pneumonia is high in the differential though she did fail levofloxacin and doxycycline therapy. It is possible that is resistant to these antibiotics. Additionally, she has a catheter has not been changed in a while and could be a source of infection, especially given that she has not responded to treatment so far. Finally, she is complaining of some mild dysuria and could have a urinary source. Patient is status post splenectomy and has chronic kidney disease, which contribute to an immunocompromised state. This morning, she is feeling better and her white blood cell count has come back to her baseline. CT chest yesterday did not show any evidence of pneumonia, leading me to think that this is more likely catheter associated. -Blood culture, sputum culture, urinary antigens -Urinalysis, urine culture -patient refuses straight cath -Vancomycin and ceftazidine empirically -Vanc level 1800 -Appreciate ID recommendations #Elevated troponin: Patient is a very mild troponin elevation with no EKG changes. She has some right-sided thoracic pain but no left-sided chest pain or other signs of ACS. I suspect type II myocardial infarction. She did receive aspirin in the ER. Troponins have trended down. -Appreciate cardiology recommendations #Chronic kidney disease on hemodialysis: Patient is on dialysis and is receiving dialysis today. Her anemia is likely related to this. -Appreciate nephrology recommendations -Hemodialysis Monday #Chronic medical problems: -Continue other medications DVT prophylaxis with heparin Renal dialysis diet DNR/DNI Problem List: 1. Leukocytosis Pain Ratin Pain Location: no Pain Goal: Remain pain free Pain Plan: see a/p Tomorrow's Labs & Rationales: cbc, bep
[2017-11-04 14:54] VITALS: BP 110/56
[2017-11-04 22:09] VITALS: BP 118/68
[2017-11-05 06:29] VITALS: BP 130/70
[2017-11-05 08:14] LABS: ABSOLUTE BASOPHIL COUNT 0.1 /CUMM (0.0-0.2); ABSOLUTE EOSINOPHIL COUNT 0.4 /CUMM (0.0-0.7); ABSOLUTE GRANULOCYTE CT 14.6 /CUMM (1.4-6.5); ABSOLUTE LYMPH COUNT 1.7 /CUMM (1.2-3.4); ABSOLUTE MONOCYTE COUNT 1.9 /CUMM (0.10-0.60); BASOPHIL % 0.4 % (0.0-2.0); GRANULOCYTE % 78.4 % (42.2-75.2); HEMATOCRIT 32.8 % (37-47); MEAN CORPUSCULAR HGB 30.5 PG (27.0-31.0); MEAN CORPUSCULAR HGB CONC 33.2 G/DL (33.0-37.0); MEAN CORPUSCULAR VOLUME 91.9 FL (81.0-99.0); MEAN PLATELET VOLUME 8.4 FL (7.4-10.4); PLATELET COUNT 399 /CUMM (130-400); RBC DISTRIBUTION WIDTH 16.3 % (11.5-14.5); RED BLOOD CELL CT 3.58 /CUMM (4.20-5.40); WHITE BLOOD CELL COUNT 18.6 /CUMM (4.8-10.8)
--- NOTE | 2017-11-05 08:14 | PN- Housestaff ---
Subjective Follow-up For: Leukocytosis, CKD, elevated troponin Subjective: Patient seen and examined at bedside. No overnight events. Patient's feels she is not getting better. Denies fever, chills, shortness of breath, chest pain. Review of Systems Constitutional: Reports: no symptoms, see HPI. Objective Last 24 Hrs of Vital Signs/I&O Vital Signs Date Time Temp Pulse Resp B/P B/P Pulse O2 O2 Flow FiO2 Mean Ox Delivery Rate 11/05 0830 Nasal 2.0L Cannula 11/05 0629 97.8 80 22 130/70 97 Nasal 2.0L Cannula 11/05 0609 80 132/70 11/04 2209 98.3 66 18 118/68 99 Nasal 2.0L Cannula 11/04 2118 Nasal 2.0L Cannula 11/04 2054 74 118/68 11/04 1645 Nasal 2.0L Cannula 11/04 1454 98.1 74 20 110/56 98 Nasal Cannula Intake & Output 11/05 1600 11/05 0800 11/05 0000 Intake Total 120 320 Output Total Balance 120 320 Intake, IV 200 Intake, Oral 120 120 Patient 109 lb Weight Weight Bed scale Measurement Method Physical Exam General Appearance: Alert, Oriented X3, Cooperative, No Acute Distress Cardiovascular: Regular Rate, Normal S1, Normal S2 Lungs: Clear to Auscultation Abdomen: Normal Bowel Sounds, Soft, No Tenderness, No Hepatospenomegaly Neurological: Normal Speech, Normal Tone, Sensation Intact Current Medications: Current Medications Sig/Margaret Start time Last Medication Dose Route Stop Time Status Admin Acetaminophen 650 MG Q6P PRN 11/03 1645 AC PO Acetaminophen 500 MG Q6P PRN 11/03 1630 AC PO Aspirin Buffered 81 MG DAILY 11/04 0900 AC 11/05 PO 0848 Atorvastatin Calcium 40 MG QPM 11/03 2100 AC 11/04 PO 2054 Benzonatate 100 MG TID 11/05 1010 AC PO Bisacodyl 5 MG DAILY 11/04 0900 AC 11/04 PO 0922 Ceftazidime 500 MG Q24H 11/03 1600 DC 11/04 IV 1648 Diclofenac Sodium 1 ALEX 4 TIMES/DAY PRN 11/03 1615 AC 11/04 TOP 0602 Digoxin 0.0625 MG 1700 11/03 1700 AC 11/04 PO 1649 Diltiazem HCl 60 MG Q8 11/03 1616 AC 11/05 PO 0609 Epoetin Tee 4,000 UNITS Monday .. 11/06 0900 AC IV Ezetimibe 10 MG DAILY 11/04 0900 AC 11/05 PO 0848 Fish Oil 1,050 MG DAILY 11/04 0900 AC 11/04 PO 0921 Folic Acid 1 MG DAILY 11/04 0900 AC 11/05 PO 0850 Guaifenesin 600 MG Q12 11/03 2100 AC 11/05 PO 0848 Heparin Sodium 5,000 UNIT Q8 11/03 2200 AC 11/05 (Porcine) SC 0609 Lactobacillus 1 CAP DAILY 11/04 0900 AC 11/04 Acidophilus PO 0921 Melatonin 5 MG AT BEDTIME 11/04 2145 AC 11/04 PO 2229 Multivitamins 1 TAB DAILY 11/04 0900 AC 11/05 PO 0848 Omeprazole 20 MG DAILY 11/04 0900 AC 11/05 PO 0848 Paricalcitol 6 MCG PER PROTOCL PRN 11/03 1330 AC IV Polyethylene Glycol 17 GM DAILY 11/04 0900 AC 11/04 PO 0922 Pyridoxine HCl 50 MG DAILY 11/04 0900 AC 11/04 PO 1450 Sevelamer Carbonate 800 MG MoWeFr@0800 11/06 0800 AC PO Sevelamer Carbonate 800 MG SuTuThSa@0800,1200 11/05 0800 AC PO Sevelamer Carbonate 800 MG SuTuThSa@0800,1700 11/04 1701 DC PO Sevelamer Carbonate 800 MG SuTuThSa 11/04 1630 DC PO Sevelamer Carbonate 1,600 MG 1700 11/03 1700 AC 11/03 PO 1844 Sevelamer Carbonate 800 MG MoWeFr 11/03 1630 DC 11/03 PO 1843 Vancomycin HCl 750 MG ONCE ONE 11/04 1915 NV 11/04 Sodium Chloride 250 ML IV 11/04 Last 24 Hrs of Lab/Jorge Results Last 24 Hrs of Labs/Mics: Laboratory Tests 11/05/17 0620: Anion Gap 16, Estimated GFR 8 L, BUN/Creatinine Ratio 6.5 L, CBC w Diff NO MAN DIFF REQ, RBC 3.58 L, MCV 91.9, MCH 30.5, MCHC 33.2, RDW 16.3 H, MPV 8.4, Gran % 78.4 H, Lymphocytes % 9.2 L, Monocytes % 10.0 H, Eosinophils % 2.0, Basophils % 0.4, Absolute Granulocytes 14.6 H, Absolute Lymphocytes 1.7, Absolute Monocytes 1.9 H, Absolute Eosinophils 0.4, Absolute Basophils 0.1 11/04/17 1755: Random Vancomycin < 5.0 Microbiology 11/05 1038 URINE ROUT: Urine Culture - COLB 11/04 1255 NASOPHARYN: Influenza Virus A & B Rapid Smear - COMP Assessment/Plan Assessment: Ms. Weiner is an 81-year-old female with past medical history of CVA, aortic aneurysm, atrial fibrillation not on anticoagulation followed by Dr. Jimenez, coronary artery disease status post STEMI, hypertension, chronic kidney disease on hemodialysis followed with Dr. Tee, osteoarthritis, AAA status post repair, ITP status post splenectomy, and severe pulmonary hypertension who presents with chills and weakness. Problem List: 1. Leukocytosis 2. Chronic kidney disease on hemodialysis 3. Elevated troponin 4. Normocytic anemia #Leukocytosis: Patient has a chronically elevated white blood cell count but is now presenting with chills, shortness of breath, and cough in the setting of an even higher white count. I suspect that she is infected but the source is unclear. Given her symptoms, pneumonia is high in the differential though she did fail levofloxacin and doxycycline therapy. It is possible that is resistant to these antibiotics. Additionally, she has a catheter has not been changed in a while and could be a source of infection, especially given that she has not responded to treatment so far. Finally, she is complaining of some mild dysuria and could have a urinary source. Patient is status post splenectomy and has chronic kidney disease, which contribute to an immunocompromised state. This morning, she is feeling better and her white blood cell count has come back to her baseline. CT chest yesterday did not show any evidence of pneumonia, leading me to think that this is more likely catheter associated. -Blood culture, sputum culture, urinary antigens -Urinalysis, urine culture -patient refuses straight cath -Vancomycin and ceftazidine empirically -Vanc level 1800 -Appreciate ID recommendations #Elevated troponin: Patient is a very mild troponin elevation with no EKG changes. She has some right-sided thoracic pain but no left-sided chest pain or other signs of ACS. I suspect type II myocardial infarction. She did receive aspirin in the ER. Troponins have trended down. -Appreciate cardiology recommendations #Chronic kidney disease on hemodialysis: Patient is on dialysis and is receiving dialysis today. Her anemia is likely related to this. -Appreciate nephrology recommendations -Hemodialysis Monday #Chronic medical problems: -Continue other medications DVT prophylaxis with heparin Renal dialysis diet DNR/DNI Patient was seen by infectious disease doctor who suggested to followed off antibiotics. We will send urine analysis and urine culture. Patient might need CT of the chest. Problem List: 1. Leukocytosis 2. Elevated troponin I level Pain Ratin Pain Location: NONE Pain Goal: Remain pain free Pain Plan: TYLENOL Tomorrow's Labs & Rationales: CBC,BEP
--- NOTE | 2017-11-05 08:26 | Cons- Infect Disease ---
General Information and HPI Consulting Request Date of Consult: 11/05/17 Requested By: Jairo Nava MD Reason for Consult: Leukocytosis/rule out pneumonia Source of Information: patient, old records History of Present Illness: This is an 81-year-old woman with a history of hypertension, coronary artery disease, atrial fibrillation, currently not on anticoagulation, status post CVA osteoarthritis and end-stage renal disease, maintained on dialysis for nearly 2 years, with a right IJ Ryan catheter in place since initiation of dialysis, with creation of a left brachiocephalic AV fistula over one year prior to admission, which has not been used, begun on Levaquin over 8 days prior to admission, apparently for shortness of breath, cough right-sided chest pain and weakness, with no improvement, changed to Doxycycline one day prior to admission, admitted on November 03 with weakness, right-sided chest pain, chills and dysuria. On admission she was afebrile with an O2 sat 98% on room air. Laboratory data revealed a white blood cell count 24,000, with occasional atypical/reactive lymphs, BUN/creatinine 42 and 6, troponin 0.21, proBNP greater than 35,000, INR 1.21. Chest x-ray was negative. CT of the chest was negative for pneumonia or pulmonary edema but did reveal trace bilateral pleural effusions, mild bibasilar atelectasis and cholelithiasis. She was begun on Vancomycin and Ceftazidime. She has remained afebrile since admission and her white blood cell count did decrease yesterday. Her blood cultures have remained negative. She continues to complain of weakness and intermittent right chest pain. She does not report any shortness of breath. She denies any GI symptoms but does note constipation. She also notes dysuria, though she urinates infrequently. Allergies/Medications Allergies: Coded Allergies: NO KNOWN ALLERGIES (01/18/16) Home Med List: Acetaminophen (Tylenol Arthritis) 650 MG TABLET.ER 1 TAB PO BID PAIN ( Reported) Aspirin (Ecotrin*) 81 MG TABLET.DR 1 TAB PO DAILY HEART HEALTH (Reported) Atorvastatin Calcium 40 MG TABLET 1 TAB PO QPM CHOLESTEROL (Reported) Bisacodyl (Women's Laxative) 5 MG TABLET 1 TAB PO DAILY constipation ( Reported) Diclofenac Sodium (Voltaren) 1 % GEL..GRAM. 1 GM TOP 4 TIMES/DAY KNEE PAIN ( Reported) apply to affected area(s) Digoxin (Lanoxin) 125 MCG TABLET 0.0625 MG PO 1700 Heart Health Every 24h Diltiazem HCl (Cardizem) 60 MG TABLET 1 TAB PO Q8 HEART (Reported) Epoetin Tee (Epogen) 2,000 UNIT/ML VIAL 4,000 IV Monday dialysis (Reported) Ezetimibe (Zetia) 10 MG TABLET 1 TAB PO DAILY CHOLESTEROL (Reported) Folic Acid 0.4 MG TABLET 1 TAB PO DAILY SUPPLEMENT (Reported) Guaifenesin (Mucus Relief) 400 MG TABLET 2 TAB PO BID COLD (Reported) Lactobacillus Acidophilus (Acidophilus) 1 EACH CAPSULE 1 CAP PO DAILY supplement (Reported) Midodrine HCl 2.5 MG TABLET 1 TAB PO Monday hypotension (Reported) Nephro-Vitamins (Nephro-Katlyn Tablet) 0.8 MG TABLET 1 TAB PO DAILY supplement (Reported) Nash-3 Fatty Acids/Fish Oil (Fish Oil 1,000 MG Capsule) 340 MG-1,000 MG CAPSULE 1 CAP PO DAILY SUPPLEMENT (Reported) Omeprazole 20 MG CAPSULE.DR 1 CAP PO DAILY GI (Reported) Pyridoxine HCl (Vitamin B-6) 50 MG TABLET 1 TAB PO DAILY SUPPLEMENT (Reported ) Sevelamer Carbonate (Renvela) 800 MG TABLET 2 TAB PO 1700 SUPPLEMENT ( Reported) Sevelamer Carbonate (Renvela) 800 MG TABLET 1 TAB PO SuTuThSa SUPPLEMENT ( Reported) Sevelamer Carbonate (Renvela) 800 MG TABLET 1 TAB PO MoWeFr SUPPLEMENT ( Reported) Past History Travel History Traveled to [place] past 21 day No Medical History Neurological: CVA, TIA EENT: NONE Cardiovascular: aortic aneurysm, AFIB, CAD, hypertension, myocardial infarction Respiratory: NONE Gastrointestinal: NONE Hepatic: NONE Renal: chronic kidney disease, nephrolithiasis Musculoskeletal: osteoarthritis Psychiatric: NONE Endocrine: NONE Blood Disorders: NONE Cancer(s): NONE [employer] TECH[employer]ICIAN/Reproductive: NONE History of MRSA: No History of VRE: No History of CDIFF: Yes Isolation History: Standard Surgical History Surgical History: hysterectomy, s/p splenectomy for thrombocytopenia s/p AAA reapir with stent Psychosocial History Where Do You Live? Senior Living Facility Services at Home: Nursing Smoking Status: Unknown If Ever Smoked ETOH Use: denies use Illicit Drug Use: denies illicit drug use Living Will? yes Review of Systems Review of Systems All Other Systems: Reviewed and Negative Exam & Diagnostic Data Last 24 Hrs of Vital Signs/I&O Vital Signs Date Time Temp Pulse Resp B/P B/P Pulse O2 O2 Flow FiO2 Mean Ox Delivery Rate 11/05 0629 97.8 80 22 130/70 97 Nasal 2.0L Cannula 11/05 0609 80 132/70 11/04 2209 98.3 66 18 118/68 99 Nasal 2.0L Cannula 11/04 2118 Nasal 2.0L Cannula 11/04 2054 74 118/68 11/04 1645 Nasal 2.0L Cannula 11/04 1454 98.1 74 20 110/56 98 Nasal Cannula 11/04 0820 Nasal 2.0L Cannula Intake & Output 11/05 1600 11/05 0800 11/05 0000 Intake Total 120 320 Output Total Balance 120 320 Intake, IV 200 Intake, Oral 120 120 Patient 109 lb Weight Weight Bed scale Measurement Method Physical Exam Other Physical Findings: She is awake and alert in no acute distress. She is afebrile. Skin reveals no rash. HEENT exam is negative. Neck is supple with no adenopathy. Chest right IJ tunneled dialysis catheter with no inflammation at the site; tenderness on palpation over the right anterior chest. Lungs are clear. Heart irregular rhythm with no murmur. Abdomen is soft, nontender with positive bowel sounds. Back no CVA tenderness. Extremities no cyanosis, clubbing or edema; no bruit or thrill over the left upper extremity. Neuro is without focality. Last 24 Hours of Lab Results: Laboratory Tests 11/05 11/04 0620 1755 Chemistry Sodium (137 - 145 mmol/L) 140 Potassium (3.5 - 5.1 mmol/L) 3.4 L Chloride (98 - 107 mmol/L) 102 Carbon Dioxide (22 - 30 mmol/L) 22 Anion Gap (5 - 16) 16 BUN (7 - 17 mg/dL) 35 H Creatinine (0.5 - 1.0 mg/dL) 5.4 *H Estimated GFR (>60 ml/min) 8 L BUN/Creatinine Ratio (7 - 25 %) 6.5 L Hematology CBC w Diff Pending WBC Pending RBC Pending Hgb Pending Hct Pending MCV Pending MCH Pending MCHC Pending RDW Pending Plt Count Pending MPV Pending Toxicology Random Vancomycin (ug/ml) < 5.0 Last 24 Hours of Jorge Results: Blood cultures 2 November 03 negative Rapid flu swab November 04 negative Diagnostic Data Recent Imaging Findings: Chest x-ray November [address] of the chest November 03 negative for pneumonia or pulmonary edema but did reveal trace bilateral pleural effusions, mild bibasilar atelectasis and cholelithiasis. Assessment/Plan Assessment/Plan Impression: This is an 81-year-old woman with a history of atrial fibrillation, currently not on anticoagulation, status post splenectomy, with a persistent mild leukocytosis and end-stage renal disease, maintained on dialysis for nearly 2 years, with a right IJ Ryan catheter in place since initiation of dialysis, admitted on November 03 with weakness, right-sided chest pain, chills and dysuria, which did not respond to 1 week of Levaquin, found on admission to be afebrile with a leukocytosis and a markedly elevated BNP with a CT of the chest negative for pneumonia and with her blood cultures remaining negative. The etiology of her symptoms is unclear. She has no evidence for pneumonia on CT scan and, presently, has no obvious focus of infection elsewhere. A dialysis catheter is certainly a possible source of sepsis, but her blood cultures ( obtained after 1 week of Levaquin) are negative. Her chest pain appears to be reproduced on palpation, suggesting a musculoskeletal etiology. Pulmonary embolism could be considered though she is not hypoxic. Her elevated BNP does raise concern for pulmonary edema, though there is no evidence of this on her CT scan and suspect this is just secondary to her renal failure. She does report dysuria but, unfortunately, no urine was obtained as she apparently refused straight catheterization. Of note she does have a persistent mild leukocytosis, likely secondary to her post splenectomy state. Suggestion: 1. Would straight cath for a urinalysis and urine culture 2. Consider CTA of the chest 3. Discontinue Vancomycin and Ceftazidime and follow off antibiotics pending above Consult Acknowledgment - Thank you for your consult request.
--- NOTE | 2017-11-05 11:43 | PN- Att Addend ---
Attending Addendum Attending Brief Note Mrs. Weiner was interviewed and examined. Her EMR was reviewed. She is somewhat discouraged with her progress but had no specific complaints. He discussed the importance of obtaining urinary studies the catheterization and she has finally agreed. She has remained afebrile with stable vital signs. She is in no acute distress. Heart and lung examinations are unchanged. Her abdomen is soft and nontender. WBC have increase of 18,500 today. Her anemia remained stable. Chemistries and renal function are essentially unchanged. Cultures remain negative. I agree with infectious disease to we may discontinue antibiotics and continue to observe. Will obtain urine studies as the patient has agreed. We will continue to follow her CBC, electrolytes, and renal function. We will continue her other maintenance medications. We may proceed with her CTA as she has end- stage renal disease.
--- NOTE | 2017-11-05 12:12 | PN- Cardiology ---
Subjective Subjective: Still feels weak. Denies any shortness of breath. Objective Vital Signs and I&Os Vital Signs Date Time Temp Pulse Resp B/P B/P Pulse O2 O2 Flow FiO2 Mean Ox Delivery Rate 11/05 0830 Nasal 2.0L Cannula 11/05 06 97.8 80 22 130/70 97 Nasal 2.0L Cannula 11/05 0609 80 132/70 11/04 2209 98.3 66 18 118/68 99 Nasal 2.0L Cannula 11/04 2118 Nasal 2.0L Cannula 11/04 205 74 118/68 11/04 164 Nasal 2.0L Cannula 11/04 1454 98.1 74 20 110/56 98 Nasal Cannula Intake & Output 11/05 1600 11/05 0800 11/05 0000 11/04 1600 11/04 0811/04 0000 Intake Total 120 320 440 120 240 Output Total Balance 120 320 440 120 240 Intake, IV 200 Intake, Oral 120 120 440 120 240 Number 1 Bowel Movements Patient 109 lb 107 lb Weight Weight Bed scale Measurement Method Physical Exam: General: no apparent distress. Alert. Eyes: No obvious scleral icterus. HEENT: No jugular venous distention or abnormal jugular venous pulsations. Cardiovascular: Normal intensity S1/S2. Irregular Respiratory: No rales rhonchi Abdomen: no guarding or rebound tenderness. Musculoskeletal: No clubbing or cyanosis noted Skin: warm Current Medications: Current Medications Sig/Margaret Start time Last Medication Dose Route Stop Time Status Admin Acetaminophen 650 MG Q6P PRN 11/03 1645 AC PO Acetaminophen 500 MG Q6P PRN 11/03 1630 AC PO Aspirin Buffered 81 MG DAILY 11/04 09 AC 11/05 PO 0848 Atorvastatin Calcium 40 MG QPM 11/03 2100 AC 11/04 PO 205 Benzonatate 100 MG TID 11/05 1010 AC PO Bisacodyl 5 MG DAILY 11/04 0900 AC 11/04 PO 0922 Ceftazidime 500 MG Q24H 11/03 1600 DC 11/04 IV 1648 Diclofenac Sodium 1 ALEX 4 TIMES/DAY PRN 11/03 1615 AC 11/04 TOP 0602 Digoxin 0.0625 MG 1700 11/03 1700 AC 11/04 PO 1649 Diltiazem HCl 60 MG Q8 11/03 1616 AC 11/05 PO 0609 Epoetin Tee 4,000 UNITS Monday .. 11/06 0900 AC IV Ezetimibe 10 MG DAILY 11/04 0900 AC 11/05 PO 0848 Fish Oil 1,050 MG DAILY 11/04 0900 AC 11/04 PO 0921 Folic Acid 1 MG DAILY 11/04 0900 AC 11/05 PO 0850 Guaifenesin 600 MG Q12 11/03 2100 AC 11/05 PO 0848 Heparin Sodium 5,000 UNIT Q8 11/03 2200 AC 11/05 (Porcine) SC 0609 Lactobacillus 1 CAP DAILY 11/04 0900 AC 11/04 Acidophilus PO 0921 Melatonin 5 MG AT BEDTIME 11/04 2145 AC 11/04 PO 2229 Multivitamins 1 TAB DAILY 11/04 0900 AC 11/05 PO 0848 Omeprazole 20 MG DAILY 11/04 0900 AC 11/05 PO 0848 Paricalcitol 6 MCG PER PROTOCL PRN 11/03 1330 AC IV Polyethylene Glycol 17 GM DAILY 11/04 0900 AC 11/04 PO 0922 Pyridoxine HCl 50 MG DAILY 11/04 0900 AC 11/04 PO 1450 Sevelamer Carbonate 800 MG MoWeFr@0800 11/06 0800 AC PO Sevelamer Carbonate 800 MG SuTuThSa@0800,1200 11/05 0800 AC PO Sevelamer Carbonate 800 MG SuTuThSa@0800,1700 11/04 1701 DC PO Sevelamer Carbonate 800 MG SuTuThSa 11/04 1630 DC PO Sevelamer Carbonate 1,600 MG 1700 11/03 1700 AC 11/03 PO 1844 Sevelamer Carbonate 800 MG MoWeFr 11/03 1630 DC 11/03 PO 1843 Vancomycin HCl 750 MG ONCE ONE 11/04 1915 DC 11/04 Sodium Chloride 250 ML IV 11/04 Results Last 48 Hrs of Labs/Mics: Laboratory Tests 11/05/17 0620: Anion Gap 16, Estimated GFR 8 L, BUN/Creatinine Ratio 6.5 L, CBC w Diff NO MAN DIFF REQ, RBC 3.58 L, MCV 91.9, MCH 30.5, MCHC 33.2, RDW 16.3 H, MPV 8.4, Gran % 78.4 H, Lymphocytes % 9.2 L, Monocytes % 10.0 H, Eosinophils % 2.0, Basophils % 0.4, Absolute Granulocytes 14.6 H, Absolute Lymphocytes 1.7, Absolute Monocytes 1.9 H, Absolute Eosinophils 0.4, Absolute Basophils 0.1 11/04/17 1755: Random Vancomycin < 5.0 11/04/17 0630: Anion Gap 13, Estimated GFR 13 L, BUN/Creatinine Ratio 6.8 L, CBC w Diff NO MAN DIFF REQ, RBC 3.49 L, MCV 92.2, MCH 31.0, MCHC 33.6, RDW 15.9 H, MPV 8.2, Gran % 77.7 H, Lymphocytes % 10.9 L, Monocytes % 10.0 H, Eosinophils % 1.2, Basophils % 0.2, Absolute Granulocytes 11.9 H, Absolute Lymphocytes 1.7, Absolute Monocytes 1.5 H, Absolute Eosinophils 0.2, Absolute Basophils 0 11/04/17 0150: Troponin I 0.17 *H 11/03/17 2111: Troponin I 0.18 *H 11/03/17 1620: Lactic Acid 0.6 L 11/03/17 1451: Urine Color Cancelled, Urine Clarity Cancelled, Urine pH Cancelled, Ur Specific [place] Cancelled, Urine Protein Cancelled, Urine Ketones Cancelled, Urine Nitrite Cancelled, Urine Bilirubin Cancelled, Urine Urobilinogen Cancelled, Ur Leukocyte Esterase Cancelled, Ur Microscopic Cancelled, Urine Hemoglobin Cancelled, Urine Glucose Cancelled 11/03/17 1400: Hep Bs Antigen NONREACTIVE, Hep Bs Antibody NONREACTIVE Microbiology 11/04 1255 NASOPHARYN: Influenza Virus A & B Rapid Smear - COMP Recent Imaging Studies: Telemetry tracings were personally reviewed and show atrial fibrillation Assessment/Plan Assessment/Plan 1. Atrial fibrillation felt a poor candidate for anticoagulation 2. Minimal troponin elevation without obvious evidence of ischemia 3. End-stage renal disease on dialysis 4. Prior CVA 5. Coronary artery disease The patient remains hemodynamically stable. Remains in atrial fibrillation with controlled ventricular response rate. The minimal troponin elevation with flat troponin curve was not suggestive of acute coronary syndrome. No ventricular arrhythmias noted on telemetry; okay to discontinue telemetry at this time. Arnold Joseph MD [facility] Continue telemetry? No
[2017-11-05 14:30] VITALS: BP 150/70
--- NOTE | 2017-11-05 16:22 | CT SCAN REPORT ---
EXAMINATION: CT CHEST PE STUDY CLINICAL INFORMATION: Leukocytosis. Presumptive diagnosis of pulmonary embolism. COMPARISON: CT scan of the chest dated 11/03/2017. CT scan of the abdomen and pelvis dated 05/02/2016. TECHNIQUE: Prior to contrast administration, localization images were obtained. After the administration of 90 mL of intravenous Optiray 320, multidetector CT volume acquisition of the chest was performed. 3-D postprocessing was performed with multiplanar reconstructions and MIP images obtained at the acquisition workstation under concurrent physician supervision. DLP: 263.17 mGy-cm. FINDINGS: Pulmonary arteries: The bolus timing on this study was acceptable for visualization of the pulmonary arterial tree. There are no intraluminal pulmonary arterial filling defects present to suggest pulmonary embolism in the main pulmonary artery, right and left main pulmonary artery, lobar and segmental branches. Lungs: Mild centrilobular and paraseptal emphysema seen. Dependent atelectatic changes noted in the lower lobes, left greater than right. No suspicious pulmonary nodules, masses, pleural effusion or pneumothorax. No focal consolidation. The central airways are diffusely thickened and patent. Aorta and heart: The heart is enlarged with four-chamber enlargement of the heart seen. There are moderate to severe three-vessel coronary artery calcifications and moderate aortic calcifications. There is no pericardial effusion. Lymphatic structures: There is no lymphadenopathy. Upper abdomen: The left kidney is partially included and demonstrates several cysts and diffuse renal cortical thinning, similar to prior exam. Limited evaluation of the upper abdominal viscera demonstrates no other focal abnormality. Bones: Moderate vertebral spondylosis is seen in the lower thoracic spine. Diffuse osteopenia is noted. Mild dorsal kyphosis is seen. No significant focal findings. IMPRESSION: 1. No evidence of pulmonary embolism. 2. Mild emphysema. 3. Four-chamber enlargement of the heart and moderate to severe three-vessel coronary artery calcifications. 4. Left kidney is partially included and appears atrophic with several cysts seen, similar to prior exam. VTE: negative.
[2017-11-05 21:51] VITALS: BP 140/70
[2017-11-06 06:00] VITALS: BP 148/84
--- NOTE | 2017-11-06 07:09 | PN- Housestaff ---
Subjective Follow-up For: Leukocytosis, CKD, Tele-Events Since Last Visit: off tele Subjective: Patient was seen and examined at bedside, no overnight events, she went for dialysis today, vitals are stable Review of Systems Constitutional: Reports: see HPI. Objective Last 24 Hrs of Vital Signs/I&O Vital Signs Date Time Temp Pulse Resp B/P B/P Pulse O2 O2 Flow FiO2 Mean Ox Delivery Rate 11/06 0644 74 148/84 11/06 0600 98.2 74 18 148/84 98 Nasal 2.0L Cannula 11/05 2151 98.2 62 22 140/70 98 Nasal 2.0L Cannula 11/05 2049 Nasal 2.0L Cannula 11/05 2043 88 142/76 11/05 1712 88 11/05 1607 Nasal 2.0L Cannula 11/05 1447 88 150/70 11/05 1430 97.1 88 22 150/70 92 Nasal Cannula 11/05 0830 Nasal 2.0L Cannula Intake & Output 11/06 1600 11/06 0800 11/06 0000 Intake Total 200 100 Output Total Balance 200 100 Intake, Oral 200 100 Patient 109 lb Weight Weight Bed scale Measurement Method Physical Exam General Appearance: Alert, Oriented X3, Cooperative, No Acute Distress Neck: Supple, No JVD Cardiovascular: Normal S1, Normal S2, No Murmurs Lungs: Clear to Auscultation Abdomen: Normal Bowel Sounds, Soft, No Tenderness Neurological: Normal Speech, Strength at 5/5 X4 Ext, Normal Tone, Sensation Intact Extremities: No Clubbing, No Cyanosis, No Edema Assessment/Plan Assessment: Ms. Weiner is an 81-year-old female with past medical history of CVA, aortic aneurysm, atrial fibrillation not on anticoagulation followed by Dr. Jimenez, coronary artery disease status post STEMI, hypertension, chronic kidney disease on hemodialysis followed with Dr. Tee, osteoarthritis, AAA status post repair, ITP status post splenectomy, and severe pulmonary hypertension who presents with chills and weakness. Problem List: 1. Leukocytosis 2. Chronic kidney disease on hemodialysis 3. Elevated troponin 4. Normocytic anemia #Leukocytosis: Patient has a chronically elevated white blood cell count but is now presenting with chills, shortness of breath, and cough in the setting of an even higher white count. I suspect that she is infected but the source is unclear. Given her symptoms, pneumonia is high in the differential though she did fail levofloxacin and doxycycline therapy. It is possible that is resistant to these antibiotics. Additionally, she has a catheter has not been changed in a while and could be a source of infection, especially given that she has not responded to treatment so far. Finally, she is complaining of some mild dysuria and could have a urinary source. Patient is status post splenectomy and has chronic kidney disease, which contribute to an immunocompromised state. This morning, she is feeling better and her white blood cell count has come back to her baseline. CT chest yesterday did not show any evidence of pneumonia, leading me to think that this is more likely catheter associated. -Blood culture: Negative sputum culture, urinary antigens -Follow-up on Legionella and strep pneumonia, urinalysis, urine culture -patient refuses straight cath - Continue to follow off antibiotics -Appreciate ID recommendations #Elevated troponin: Patient is a very mild troponin elevation with no EKG changes. She has some right-sided thoracic pain but no left-sided chest pain or other signs of ACS. I suspect type II myocardial infarction. She did receive aspirin in the ER. Troponins have trended down. -Appreciate cardiology recommendations #Chronic kidney disease on hemodialysis: Patient is on dialysis and is receiving dialysis today. Her anemia is likely related to this. -Appreciate nephrology recommendations -Hemodialysis Monday #Chronic medical problems: -Continue other medications DVT prophylaxis with heparin Renal dialysis diet DNR/DNI Problem List: 1. Leukocytosis 2. Elevated troponin I level 3. Chronic renal failure Pain Ratin Pain Location: N/A Pain Goal: Remain pain free Pain Plan: Pathway Tomorrow's Labs & Rationales: cbc bep
[2017-11-06 07:54] LABS: ABSOLUTE BASOPHIL COUNT 0 /CUMM (0.0-0.2); ABSOLUTE EOSINOPHIL COUNT 0.2 /CUMM (0.0-0.7); ABSOLUTE GRANULOCYTE CT 12.1 /CUMM (1.4-6.5); ABSOLUTE LYMPH COUNT 4.1 /CUMM (1.2-3.4); ABSOLUTE MONOCYTE COUNT 1.2 /CUMM (0.10-0.60); BASOPHIL % 0.1 % (0.0-2.0); EOSINOPHIL % 1.4 % (0-5); GRANULOCYTE % 68.7 % (42.2-75.2); HEMATOCRIT 30.6 % (37-47); MEAN CORPUSCULAR HGB 30.9 PG (27.0-31.0); MEAN CORPUSCULAR HGB CONC 33.7 G/DL (33.0-37.0); MEAN CORPUSCULAR VOLUME 91.9 FL (81.0-99.0); MEAN PLATELET VOLUME 8.5 FL (7.4-10.4); PLATELET COUNT 348 /CUMM (130-400); RBC DISTRIBUTION WIDTH 15.5 % (11.5-14.5); RED BLOOD CELL CT 3.33 /CUMM (4.20-5.40)
[2017-11-06 09:01] LABS: WHITE BLOOD CELL COUNT 17.6 /CUMM (4.8-10.8)
[2017-11-06 09:23] LABS: ABSOLUTE BASOPHIL COUNT 0 /CUMM (0.0-0.2); ABSOLUTE EOSINOPHIL COUNT 0.2 /CUMM (0.0-0.7); ABSOLUTE GRANULOCYTE CT 12.2 /CUMM (1.4-6.5); ABSOLUTE LYMPH COUNT 3.3 /CUMM (1.2-3.4); ABSOLUTE MONOCYTE COUNT 1.4 /CUMM (0.10-0.60); BASOPHIL % 0.1 % (0.0-2.0); EOSINOPHIL % 1.2 % (0-5); HEMATOCRIT 30.7 % (37-47); MEAN CORPUSCULAR HGB 30.8 PG (27.0-31.0); MEAN CORPUSCULAR HGB CONC 33.3 G/DL (33.0-37.0); MEAN CORPUSCULAR VOLUME 92.3 FL (81.0-99.0); MEAN PLATELET VOLUME 8.3 FL (7.4-10.4); PLATELET COUNT 382 /CUMM (130-400); RBC DISTRIBUTION WIDTH 15.1 % (11.5-14.5); RED BLOOD CELL CT 3.32 /CUMM (4.20-5.40); WHITE BLOOD CELL COUNT 17.1 /CUMM (4.8-10.8)
[2017-11-06 09:34] LABS: GRANULOCYTE % 71.2 % (42.2-75.2)
--- NOTE | 2017-11-06 10:23 | PN- Att Addend ---
Attending Addendum Attending Brief Note Patient still feels weak. Hemodialysis in progress Vital signs are stable no fever . No major changes on physical No major changes on physical. Patient. Patient off antibiotics per infectious diseases, trying to get another urine culture, We will continue observation and treatment as per infectious diseases. Her white count is still elevated Intake & Output 11/06 1600 11/06 0400 11/05 1600 11/05 0400 11/04 1600 11/04 0400 Intake Total 200 100 940 320 560 240 Output Total Balance 200 100 940 320 560 240 Intake, IV 200 Intake, Oral 200 100 940 120 560 240 Number 1 Bowel Movements Patient 109 lb 109 lb 107 lb Weight Weight Bed scale Bed scale Measurement Method Current Medications Sig/Margaret Start time Last Medication Dose Route Stop Time Status Admin Acetaminophen 650 MG Q6P PRN 11/03 1645 AC PO Acetaminophen 500 MG Q6P PRN 11/03 1630 AC PO Aspirin Buffered 81 MG DAILY 11/04 09 AC 11/05 PO 0848 Atorvastatin Calcium 40 MG QPM 11/03 2100 AC 11/05 PO 2043 Benzonatate 100 MG TID 11/05 1010 AC PO Bisacodyl 5 MG DAILY 11/04 0900 AC 11/04 PO 0922 Diclofenac Sodium 1 ALEX 4 TIMES/DAY PRN 11/03 1615 AC 11/04 TOP 0602 Digoxin 0.0625 MG 1700 11/03 1700 AC 11/05 PO 1712 Diltiazem HCl 60 MG Q8 11/03 1616 AC 11/06 PO 0644 Epoetin Tee 4,000 UNITS MONDAY WED MONDAY .. 11/06 0900 AC IV Ezetimibe 10 MG DAILY 11/04 0900 AC 11/05 PO 0848 Fish Oil 1,050 MG DAILY 11/04 0900 AC 11/04 PO 0921 Folic Acid 1 MG DAILY 11/04 0900 AC 11/05 PO 0850 Guaifenesin 600 MG Q12 11/03 2100 AC 11/05 PO 2043 Heparin Sodium 5,000 UNIT Q8 11/03 2200 AC 11/05 (Porcine) SC 0609 Lactobacillus 1 CAP DAILY 11/04 09 AC 11/04 Acidophilus PO 0921 Melatonin 5 MG .STK-MED ONE 11/05 2012 DC PO 11/05 2013 Melatonin 5 MG AT BEDTIME 11/04 2145 AC 11/05 PO 204 Multivitamins 1 TAB DAILY 11/04 09 AC 11/05 PO 0848 Omeprazole 20 MG DAILY 11/04 0900 AC 11/05 PO 0848 Paricalcitol 6 MCG PER PROTOCL PRN 11/03 1330 AC IV Polyethylene Glycol 17 GM DAILY 11/04 09 AC 11/04 PO 0922 Pyridoxine HCl 50 MG DAILY 11/04 0900 AC 11/04 PO 1450 Ramelteon 8 MG ONCE ONE 11/06 0230 DC 11/06 PO 11/06 0231 0253 Sevelamer Carbonate 800 MG MoWeFr@0800 11/06 0800 AC PO Sevelamer Carbonate 800 MG SuTuThSa@0800,1200 11/05 0800 AC PO Sevelamer Carbonate 1,600 MG 1700 11/03 1700 AC 11/03 PO 1844 Laboratory Tests 11/06/17 0734: Anion Gap 16, Estimated GFR 5 L, BUN/Creatinine Ratio 6.4 L, Glucose 74, Calcium 7.5 L, CBC w Diff NO MAN DIFF REQ, RBC 3.32 L, MCV 92.3, MCH 30.8, MCHC 33.3, RDW 15.1 H, MPV 8.3, Gran % 71.2, Lymphocytes % 19.1 L, Monocytes % 8.4, Eosinophils % 1.2, Basophils % 0.1, Absolute Granulocytes 12.2 H, Absolute Lymphocytes 3.3, Absolute Monocytes 1.4 H, Absolute Eosinophils 0.2, Absolute Basophils 0 11/06/17 0631: Anion Gap 17 H, Estimated GFR 6 L, BUN/Creatinine Ratio 6.7 L, CBC w Diff NO MAN DIFF REQ, RBC 3.33 L, MCV 91.9, MCH 30.9, MCHC 33.7, RDW 15.5 H, MPV 8.5, Gran % 68.7, Lymphocytes % 23.2, Monocytes % 6.6, Eosinophils % 1.4, Basophils % 0.1, Absolute Granulocytes 12.1 H, Absolute Lymphocytes 4.1 H, Absolute Monocytes 1.2 H, Absolute Eosinophils 0.2, Absolute Basophils 0 11/05/17 1800: Random Vancomycin Cancelled 11/05/17 0620: Anion Gap 16, Estimated GFR 8 L, BUN/Creatinine Ratio 6.5 L, CBC w Diff NO MAN DIFF REQ, RBC 3.58 L, MCV 91.9, MCH 30.5, MCHC 33.2, RDW 16.3 H, MPV 8.4, Gran % 78.4 H, Lymphocytes % 9.2 L, Monocytes % 10.0 H, Eosinophils % 2.0, Basophils % 0.4, Absolute Granulocytes 14.6 H, Absolute Lymphocytes 1.7, Absolute Monocytes 1.9 H, Absolute Eosinophils 0.4, Absolute Basophils 0.1 11/04/17 1755: Random Vancomycin < 5.0 11/04/17 0630: Anion Gap 13, Estimated GFR 13 L, BUN/Creatinine Ratio 6.8 L, CBC w Diff NO MAN DIFF REQ, RBC 3.49 L, MCV 92.2, MCH 31.0, MCHC 33.6, RDW 15.9 H, MPV 8.2, Gran % 77.7 H, Lymphocytes % 10.9 L, Monocytes % 10.0 H, Eosinophils % 1.2, Basophils % 0.2, Absolute Granulocytes 11.9 H, Absolute Lymphocytes 1.7, Absolute Monocytes 1.5 H, Absolute Eosinophils 0.2, Absolute Basophils 0 11/04/17 0150: Troponin I 0.17 *H 11/03/17 2111: Troponin I 0.18 *H 11/03/17 1620: Lactic Acid 0.6 L 11/03/17 1451: Urine Color Cancelled, Urine Clarity Cancelled, Urine pH Cancelled, Ur Specific [place] Cancelled, Urine Protein Cancelled, Urine Ketones Cancelled, Urine Nitrite Cancelled, Urine Bilirubin Cancelled, Urine Urobilinogen Cancelled, Ur Leukocyte Esterase Cancelled, Ur Microscopic Cancelled, Urine Hemoglobin Cancelled, Urine Glucose Cancelled 11/03/17 1400: Hep Bs Antigen NONREACTIVE, Hep Bs Antibody NONREACTIVE 11/03/17 1135: Anion Gap 20 H, Estimated GFR 7 L, BUN/Creatinine Ratio 7.0, Glucose 78, Lactic Acid 1.9, Calcium 8.6, Total Bilirubin 0.9, AST 32, ALT 32, Alkaline Phosphatase 110, Troponin I 0.21 *H, [id number] Pept > 73972 H, Total Protein 6.0 L, Albumin 3.3 L, Globulin 2.7, Albumin/Globulin Ratio 1.2, PT 13.2 H, INR 1.21 H, APTT 20 L, CBC w Diff MAN DIFF ORDERED, RBC 3.85 L, MCV 91.2, MCH 30.7, MCHC 33.7, RDW 15.4 H, MPV 8.0, Gran % 67.9, Lymphocytes % 25.5 , Monocytes % 6.4, Eosinophils % 0.2, Basophils % 0, Absolute Granulocytes 16.4 H, Segmented Neutrophils 85 H, Absolute Lymphocytes 6.2 H, Lymphocytes 13 L, Monocytes 2, Absolute Monocytes 1.6 H, Absolute Eosinophils 0.1, Absolute Basophils 0, Platelet Estimate VERIFIED BY SMEAR, Normocytic RBCs VERIFIED, Normochromic RBCs VERIFIED, Digoxin 1.3 Microbiology 11/05 1038 URINE ROUT: Urine Culture - COLB 11/04 1255 NASOPHARYN: Influenza Virus A & B Rapid Smear - COMP 11/03 1600 BLOOD: Blood Culture - RES 11/03 1505 URINE ROUT: Urine Culture - CAN Cancelled: SPECIMEN NOT RECEIVED IN LABORATORY 11/03 1452 LOWER RESP: Respiratory Culture - CAN Cancelled: SPECIMEN NOT RECEIVED IN LABORATORY 11/03 1452 LOWER RESP: Gram Stain - CAN Cancelled: SPECIMEN NOT RECEIVED IN LABORATORY 11/03 1451 URINE ROUT: Legionella Antigen - CAN Cancelled: SPECIMEN NOT RECEIVED IN LABORATORY 11/03 1451 URINE ROUT: Streptococcus pneumoniae Antigen (M - CAN Cancelled: SPECIMEN NOT RECEIVED IN LABORATORY 11/03 1451 NASOPHARYN: Influenza Virus A & B Rapid Smear - CAN Cancelled: WRONG DATE 11/03 1230 BLOOD: Blood Culture - RES 11/03 1209 BLOOD: Blood Culture - CAN Cancelled: Microbiology 11/05 1038 URINE ROUT: Urine Culture - COLB 11/04 1255 NASOPHARYN: Influenza Virus A & B Rapid Smear - COMP 11/03 1600 BLOOD: Blood Culture - RES 11/03 1505 URINE ROUT: Urine Culture - CAN Cancelled: SPECIMEN NOT RECEIVED IN LABORATORY 11/03 1452 LOWER RESP: Respiratory Culture - CAN Cancelled: SPECIMEN NOT RECEIVED IN LABORATORY 11/03 1452 LOWER RESP: Gram Stain - CAN Cancelled: SPECIMEN NOT RECEIVED IN LABORATORY 11/03 1451 URINE ROUT: Legionella Antigen - CAN Cancelled: SPECIMEN NOT RECEIVED IN LABORATORY 11/03 1451 URINE ROUT: Streptococcus pneumoniae Antigen (M - CAN Cancelled: SPECIMEN NOT RECEIVED IN LABORATORY 11/03 1451 NASOPHARYN: Influenza Virus A & B Rapid Smear - CAN Cancelled: WRONG DATE 11/03 1230 BLOOD: Blood Culture - RES 11/03 1209 BLOOD: Blood Culture - CAN Cancelled: Vital Signs Date Time Temp Pulse Resp B/P B/P Pulse O2 O2 Flow FiO2 Mean Ox Delivery Rate 11/06 0644 74 148/84 11/06 0600 98.2 74 18 148/84 98 Nasal 2.0L Cannula 11/05 2151 98.2 62 22 140/70 98 Nasal 2.0L Cannula 11/059 Nasal 2.0L Cannula 11/05 204 88 142/76 11/05 1712 88 11/05 1607 Nasal 2.0L Cannula 11/05 1447 88 150/70 11/05 1430 97.1 88 22 150/70 92 Nasal Cannula
--- NOTE | 2017-11-06 10:45 | PN- Nephrology ---
Assessment/Plan Nephrology Assessment: ESRD - Routine HD today. ROCAEL cath looks pretty far out although no s/s of infection. Chest x-ray noted to have unchanged positioning. Will reach out to outpatient HD unit to see how far this is from baseline. ?Infection - Cultures neg thus far. Has been afebrile with downtrending WBC count. Off abx - ID following. ROCAEL cath does not appear to be infected. Anemia - Hg at goal but trending toward lower end. Will restart Epogen 1000U TIW. Suggestion: -HD today -Next HD Monday -Will reach out to outpatient unit re: catheter -f/u cultures and further ID recs -Restart Epogen 1000U TIW Please call [phone] with ?'s Subjective Subjective: Pt seen and examined on dialysis Pt still reports not feeling well; still with a cough Remains afebrile off abx; WBC 17 CTA neg for PE; CT neg for PNA (noted to have emphysema) Objective Vital Signs and I&Os Vital Signs Date Time Temp Pulse Resp B/P B/P Pulse O2 O2 Flow FiO2 Mean Ox Delivery Rate 11/06 0644 74 148/84 11/06 0600 98.2 74 18 148/84 98 Nasal 2.0L Cannula 11/05 2151 98.2 62 22 140/70 98 Nasal 2.0L Cannula 11/05 2049 Nasal 2.0L Cannula 11/05 2043 88 142/76 11/05 1712 88 11/05 1607 Nasal 2.0L Cannula 11/05 1447 88 150/70 11/05 1430 97.1 88 22 150/70 92 Nasal Cannula Intake & Output 11/06 1600 11/06 0400 11/05 1600 11/05 0400 11/04 1600 11/04 0400 Intake Total 200 100 940 320 560 240 Output Total Balance 200 100 940 320 560 240 Intake, IV 200 Intake, Oral 200 100 940 120 560 240 Number 1 Bowel Movements Patient 109 lb 109 lb 107 lb Weight Weight Bed scale Bed scale Measurement Method Physical Exam: Gen - ok appearing HEENT - supple CV - RRR, no m/r/g Chest - clear anteriorly, ROCAEL cath out approx 1-2 inches Abd - soft, NTND Ext - warm, no edema Neuro - AOX3, grossly nonfocal Current Medications: Current Medications Sig/Margaret Start time Last Medication Dose Route Stop Time Status Admin Acetaminophen 650 MG Q6P PRN 11/03 1645 AC PO Acetaminophen 500 MG Q6P PRN 11/03 1630 AC PO Aspirin Buffered 81 MG DAILY 11/04 0900 AC 11/05 PO 0848 Atorvastatin Calcium 40 MG QPM 11/03 2100 AC 11/05 PO 2043 Benzonatate 100 MG TID 11/05 1010 AC PO Bisacodyl 5 MG DAILY 11/04 0900 AC 11/04 PO 0922 Diclofenac Sodium 1 ALEX 4 TIMES/DAY PRN 11/03 1615 AC 11/04 TOP 0602 Digoxin 0.0625 MG 1700 11/03 1700 AC 11/05 PO 1712 Diltiazem HCl 60 MG Q8 11/03 1616 AC 11/06 PO 0644 Epoetin Tee 4,000 UNITS MONDAY WED MONDAY .. 11/06 0900 AC IV Ezetimibe 10 MG DAILY 11/04 0900 AC 11/05 PO 0848 Fish Oil 1,050 MG DAILY 11/04 0900 AC 11/04 PO 0921 Folic Acid 1 MG DAILY 11/04 0900 AC 11/05 PO 0850 Guaifenesin 600 MG Q12 11/03 2100 AC 11/05 PO 2043 Heparin Sodium 5,000 UNIT Q8 11/03 2200 AC 11/05 (Porcine) SC 0609 Lactobacillus 1 CAP DAILY 11/04 0900 AC 11/04 Acidophilus PO 0921 Melatonin 5 MG .STK-MED ONE 11/05 2012 DC PO 11/05 2013 Melatonin 5 MG AT BEDTIME 11/04 2145 AC 11/05 PO 2043 Multivitamins 1 TAB DAILY 11/04 0900 AC 11/05 PO 0848 Omeprazole 20 MG DAILY 11/04 0900 AC 11/05 PO 0848 Paricalcitol 6 MCG PER PROTOCL PRN 11/03 1330 AC IV Polyethylene Glycol 17 GM DAILY 11/04 0900 AC 11/04 PO 0922 Pyridoxine HCl 50 MG DAILY 11/04 0900 AC 11/04 PO 1450 Ramelteon 8 MG ONCE ONE 11/06 0230 DC 11/06 PO 11/06 0231 0253 Sevelamer Carbonate 800 MG MoWeFr@0800 11/06 0800 AC PO Sevelamer Carbonate 800 MG SuTuThSa@0800,1200 11/05 0800 AC PO Sevelamer Carbonate 1,600 MG 1700 11/03 1700 AC 11/03 PO 1844 Results Pertinent Lab Results: Laboratory Tests 11/06 11/06 0734 0631 Chemistry Sodium (137 - 145 mmol/L) 139 138 Potassium (3.5 - 5.1 mmol/L) 3.4 L 3.8 Chloride (98 - 107 mmol/L) 102 101 Carbon Dioxide (22 - 30 mmol/L) 21 L 20 L Anion Gap (5 - 16) 16 17 H BUN (7 - 17 mg/dL) 46 H 47 H Creatinine (0.5 - 1.0 mg/dL) 7.2 *H 7.0 *H Estimated GFR (>60 ml/min) 5 L 6 L BUN/Creatinine Ratio (7 - 25 %) 6.4 L 6.7 L Glucose (65 - 99 mg/dL) 74 Calcium (8.4 - 10.2 mg/dL) 7.5 L Hematology CBC w Diff NO MAN DIFF REQ NO MAN DIFF REQ WBC (4.8 - 10.8 /CUMM) 17.1 H 17.6 H RBC (4.20 - 5.40 /CUMM) 3.32 L 3.33 L Hgb (12.0 - 16.0 G/DL) 10.2 L 10.3 L Hct (37 - 47 %) 30.7 L 30.6 L MCV (81.0 - 99.0 FL) 92.3 91.9 MCH (27.0 - 31.0 PG) 30.8 30.9 MCHC (33.0 - 37.0 G/DL) 33.3 33.7 RDW (11.5 - 14.5 %) 15.1 H 15.5 H Plt Count (130 - 400 /CUMM) 382 348 MPV (7.4 - 10.4 FL) 8.3 8.5 Gran % (42.2 - 75.2 %) 71.2 68.7 Lymphocytes % (20.5 - 51.1 %) 19.1 L 23.2 Monocytes % (1.7 - 9.3 %) 8.4 6.6 Eosinophils % (0 - 5 %) 1.2 1.4 Basophils % (0.0 - 2.0 %) 0.1 0.1 Absolute Granulocytes (1.4 - 6.5 /CUMM) 12.2 H 12.1 H Absolute Lymphocytes (1.2 - 3.4 /CUMM) 3.3 4.1 H Absolute Monocytes (0.10 - 0.60 /CUMM) 1.4 H 1.2 H Absolute Eosinophils (0.0 - 0.7 /CUMM) 0.2 0.2 Absolute Basophils (0.0 - 0.2 /CUMM) 0 0 11/05 11/05 11/04 1800 0620 1755 Chemistry Sodium (137 - 145 mmol/L) 140 Potassium (3.5 - 5.1 mmol/L) 3.4 L Chloride (98 - 107 mmol/L) 102 Carbon Dioxide (22 - 30 mmol/L) 22 Anion Gap (5 - 16) 16 BUN (7 - 17 mg/dL) 35 H Creatinine (0.5 - 1.0 mg/dL) 5.4 *H Estimated GFR (>60 ml/min) 8 L BUN/Creatinine Ratio (7 - 25 %) 6.5 L Hematology CBC w Diff NO MAN DIFF REQ WBC (4.8 - 10.8 /CUMM) 18.6 H RBC (4.20 - 5.40 /CUMM) 3.58 L Hgb (12.0 - 16.0 G/DL) 10.9 L Hct (37 - 47 %) 32.8 L MCV (81.0 - 99.0 FL) 91.9 MCH (27.0 - 31.0 PG) 30.5 MCHC (33.0 - 37.0 G/DL) 33.2 RDW (11.5 - 14.5 %) 16.3 H Plt Count (130 - 400 /CUMM) 399 MPV (7.4 - 10.4 FL) 8.4 Gran % (42.2 - 75.2 %) 78.4 H Lymphocytes % (20.5 - 51.1 %) 9.2 L Monocytes % (1.7 - 9.3 %) 10.0 H Eosinophils % (0 - 5 %) 2.0 Basophils % (0.0 - 2.0 %) 0.4 Absolute Granulocytes (1.4 - 6.5 /CUMM) 14.6 H Absolute Lymphocytes (1.2 - 3.4 /CUMM) 1.7 Absolute Monocytes (0.10 - 0.60 /CUMM) 1.9 H Absolute Eosinophils (0.0 - 0.7 /CUMM) 0.4 Absolute Basophils (0.0 - 0.2 /CUMM) 0.1 Toxicology Random Vancomycin (ug/ml) Cancelled < 5.0 11/04 11/04 11/03 0630 0150 2111 Chemistry Sodium (137 - 145 mmol/L) 140 Potassium (3.5 - 5.1 mmol/L) 3.4 L Chloride (98 - 107 mmol/L) 102 Carbon Dioxide (22 - 30 mmol/L) 25 Anion Gap (5 - 16) 13 BUN (7 - 17 mg/dL) 23 H Creatinine (0.5 - 1.0 mg/dL) 3.4 H Estimated GFR (>60 ml/min) 13 L BUN/Creatinine Ratio (7 - 25 %) 6.8 L Troponin I (< 0.11 ng/ml) 0.17 *H 0.18 *H Hematology CBC w Diff NO MAN DIFF REQ WBC (4.8 - 10.8 /CUMM) 15.3 H RBC (4.20 - 5.40 /CUMM) 3.49 L Hgb (12.0 - 16.0 G/DL) 10.8 L Hct (37 - 47 %) 32.2 L MCV (81.0 - 99.0 FL) 92.2 MCH (27.0 - 31.0 PG) 31.0 MCHC (33.0 - 37.0 G/DL) 33.6 RDW (11.5 - 14.5 %) 15.9 H Plt Count (130 - 400 /CUMM) 373 MPV (7.4 - 10.4 FL) 8.2 Gran % (42.2 - 75.2 %) 77.7 H Lymphocytes % (20.5 - 51.1 %) 10.9 L Monocytes % (1.7 - 9.3 %) 10.0 H Eosinophils % (0 - 5 %) 1.2 Basophils % (0.0 - 2.0 %) 0.2 Absolute Granulocytes (1.4 - 6.5 /CUMM) 11.9 H Absolute Lymphocytes (1.2 - 3.4 /CUMM) 1.7 Absolute Monocytes (0.10 - 0.60 /CUMM) 1.5 H Absolute Eosinophils (0.0 - 0.7 /CUMM) 0.2 Absolute Basophils (0.0 - 0.2 /CUMM) 0 11/03 11/03 11/03 1620 1451 1400 Chemistry Lactic Acid (0.7 - 2.1 mmol/L) 0.6 L Serology Hep Bs Antigen (NONREACTIVE) NONREACTIVE Hep Bs Antibody (NONREACTIVE) NONREACTIVE Urines Urine Color Cancelled Urine Clarity Cancelled Urine pH Cancelled Ur Specific [place] Cancelled Urine Protein Cancelled Urine Ketones Cancelled Urine Nitrite Cancelled Urine Bilirubin Cancelled Urine Urobilinogen Cancelled Ur Leukocyte Esterase Cancelled Ur Microscopic Cancelled Urine Hemoglobin Cancelled Urine Glucose Cancelled 11/03 1135 Chemistry Sodium (137 - 145 mmol/L) 143 Potassium (3.5 - 5.1 mmol/L) 4.1 Chloride (98 - 107 mmol/L) 103 Carbon Dioxide (22 - 30 mmol/L) 20 L Anion Gap (5 - 16) 20 H BUN (7 - 17 mg/dL) 42 H Creatinine (0.5 - 1.0 mg/dL) 6.0 *H Estimated GFR (>60 ml/min) 7 L BUN/Creatinine Ratio (7 - 25 %) 7.0 Glucose (65 - 99 mg/dL) 78 Lactic Acid (0.7 - 2.1 mmol/L) 1.9 Calcium (8.4 - 10.2 mg/dL) 8.6 Total Bilirubin (0.2 - 1.3 mg/dL) 0.9 AST (14 - 36 U/L) 32 ALT (9 - 52 U/L) 32 Alkaline Phosphatase (<127 U/L) 110 Troponin I (< 0.11 ng/ml) 0.21 *H [id number] Pept (<125 pg/mL) > 21666 H Total Protein (6.3 - 8.2 g/dL) 6.0 L Albumin (3.5 - 5.0 g/dL) 3.3 L Globulin (1.9 - 4.2 gm/dL) 2.7 Albumin/Globulin Ratio (1.1 - 2.2 %) 1.2 Coagulation PT (9.4 - 12.5 SEC) 13.2 H INR (0.90 - 1.19) 1.21 H APTT (25 - 37 SEC) 20 L Hematology CBC w Diff MAN DIFF ORDERED WBC (4.8 - 10.8 /CUMM) 24.2 H RBC (4.20 - 5.40 /CUMM) 3.85 L Hgb (12.0 - 16.0 G/DL) 11.8 L Hct (37 - 47 %) 35.1 L MCV (81.0 - 99.0 FL) 91.2 MCH (27.0 - 31.0 PG) 30.7 MCHC (33.0 - 37.0 G/DL) 33.7 RDW (11.5 - 14.5 %) 15.4 H Plt Count (130 - 400 /CUMM) 447 H MPV (7.4 - 10.4 FL) 8.0 Gran % (42.2 - 75.2 %) 67.9 Lymphocytes % (20.5 - 51.1 %) 25.5 Monocytes % (1.7 - 9.3 %) 6.4 Eosinophils % (0 - 5 %) 0.2 Basophils % (0.0 - 2.0 %) 0 Absolute Granulocytes (1.4 - 6.5 /CUMM) 16.4 H Segmented Neutrophils (42.2 - 75.2 %) 85 H Absolute Lymphocytes (1.2 - 3.4 /CUMM) 6.2 H Lymphocytes (20.5 - 51.1 %) 13 L Monocytes (1.7 - 9.3 %) 2 Absolute Monocytes (0.10 - 0.60 /CUMM) 1.6 H Absolute Eosinophils (0.0 - 0.7 /CUMM) 0.1 Absolute Basophils (0.0 - 0.2 /CUMM) 0 Platelet Estimate (ADEQUATE) VERIFIED BY SMEAR Normocytic RBCs VERIFIED Normochromic RBCs VERIFIED Toxicology Digoxin (0.8 - 2.0 ng/mL) 1.3 Imaging/Other Studies: CT, CTA, and Chest x-ray reviewed
--- NOTE | 2017-11-06 11:47 | PN- Infect Dx ---
Subjective Subjective: Afebrile. She complains of nausea, with no abdominal pain or diarrhea. She continues to report dysuria, with straight catheterization yesterday only yielding 5 cc, not able to be submitted for culture. Objective Last 24 Hrs of Vital Signs/I&O Vital Signs Date Time Temp Pulse Resp B/P B/P Pulse O2 O2 Flow FiO2 Mean Ox Delivery Rate 11/06 0644 74 148/84 11/06 0600 98.2 74 18 148/84 98 Nasal 2.0L Cannula 11/05 2151 98.2 62 22 140/70 98 Nasal 2.0L Cannula 11/05 2049 Nasal 2.0L Cannula 11/05 2043 88 142/76 11/05 1712 88 11/05 1607 Nasal 2.0L Cannula 11/05 1447 88 150/70 11/05 1430 97.1 88 22 150/70 92 Nasal Cannula Intake & Output 11/06 1600 11/06 0800 11/06 0000 Intake Total 200 100 Output Total Balance 200 100 Intake, Oral 200 100 Patient 108 lb 109 lb Weight Weight Bed scale Bed scale Measurement Method Physical Exam Other Physical Findings: She is awake and alert in no acute distress, currently on dialysis Neck right IJ tunneled dialysis catheter with no inflammation at the site Lungs are clear Heart irregular rhythm with no murmur Abdomen soft, nontender with positive bowel sounds Back no CVA tenderness Extremities no cyanosis, clubbing or edema Results Last 24 Hours of Lab Results: Laboratory Tests 11/06 11/06 0734 0631 Chemistry Sodium (137 - 145 mmol/L) 139 138 Potassium (3.5 - 5.1 mmol/L) 3.4 L 3.8 Chloride (98 - 107 mmol/L) 102 101 Carbon Dioxide (22 - 30 mmol/L) 21 L 20 L Anion Gap (5 - 16) 16 17 H BUN (7 - 17 mg/dL) 46 H 47 H Creatinine (0.5 - 1.0 mg/dL) 7.2 *H 7.0 *H Estimated GFR (>60 ml/min) 5 L 6 L BUN/Creatinine Ratio (7 - 25 %) 6.4 L 6.7 L Glucose (65 - 99 mg/dL) 74 Calcium (8.4 - 10.2 mg/dL) 7.5 L Hematology CBC w Diff NO MAN DIFF REQ NO MAN DIFF REQ WBC (4.8 - 10.8 /CUMM) 17.1 H 17.6 H RBC (4.20 - 5.40 /CUMM) 3.32 L 3.33 L Hgb (12.0 - 16.0 G/DL) 10.2 L 10.3 L Hct (37 - 47 %) 30.7 L 30.6 L MCV (81.0 - 99.0 FL) 92.3 91.9 MCH (27.0 - 31.0 PG) 30.8 30.9 MCHC (33.0 - 37.0 G/DL) 33.3 33.7 RDW (11.5 - 14.5 %) 15.1 H 15.5 H Plt Count (130 - 400 /CUMM) 382 348 MPV (7.4 - 10.4 FL) 8.3 8.5 Gran % (42.2 - 75.2 %) 71.2 68.7 Lymphocytes % (20.5 - 51.1 %) 19.1 L 23.2 Monocytes % (1.7 - 9.3 %) 8.4 6.6 Eosinophils % (0 - 5 %) 1.2 1.4 Basophils % (0.0 - 2.0 %) 0.1 0.1 Absolute Granulocytes (1.4 - 6.5 /CUMM) 12.2 H 12.1 H Absolute Lymphocytes (1.2 - 3.4 /CUMM) 3.3 4.1 H Absolute Monocytes (0.10 - 0.60 /CUMM) 1.4 H 1.2 H Absolute Eosinophils (0.0 - 0.7 /CUMM) 0.2 0.2 Absolute Basophils (0.0 - 0.2 /CUMM) 0 0 06/17 1800 Toxicology Random Vancomycin Cancelled Last 24 Hours of Jorge Results: Blood cultures 2 November 03 remain negative Recent Imaging Studies: CTA of the chest November 05 no evidence of pulmonary embolism Assessment/Plan ID Impression: Stable, with temperatures remaining normal but with a persistent leukocytosis, now off antibiotics, with her blood cultures remaining negative and with no obvious focus of infection. 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 Suggestion: 1. Continue to follow off antibiotics
--- NOTE | 2017-11-06 11:59 | PN- Cardiology ---
Subjective Subjective: Complains of feeling weak. Objective Vital Signs and I&Os Vital Signs Date Time Temp Pulse Resp B/P B/P Pulse O2 O2 Flow FiO2 Mean Ox Delivery Rate 11/06 0644 74 148/84 11/06 0600 98.2 74 18 148/84 98 Nasal 2.0L Cannula 11/05 2151 98.2 62 22 140/70 98 Nasal 2.0L Cannula 11/05 2049 Nasal 2.0L Cannula 11/05 2043 88 142/76 11/05 1712 88 11/05 1607 Nasal 2.0L Cannula 11/05 1447 88 150/70 11/05 1430 97.1 88 22 150/70 92 Nasal Cannula Intake & Output 11/06 1600 11/06 0800 11/06 0000 11/05 1600 11/05 0800 11/05 0000 Intake Total 200 100 820 120 320 Output Total Balance 200 100 820 120 320 Intake, IV 200 Intake, Oral 200 100 820 120 120 Patient 108 lb 109 lb 109 lb Weight Weight Bed scale Bed scale Bed scale Measurement Method Physical Exam: Chronically ill-appearing elderly female with nasal oxygen in place in no acute distress. Vital signs: See above. HEENT: Normocephalic, atraumatic, EOMI, slightly dry mucous membranes. Neck: No JVD, no bruits. Lungs: Decreased breath sounds and occasional rhonchi. Heart: S1, S2 (irregularly, irregular) with a grade 2/6 systolic murmur. No gallop or rub. Abdomen: Soft, nontender, positive bowel sounds. Extremities: No edema. Current Medications: Current Medications Sig/Margaret Start time Last Medication Dose Route Stop Time Status Admin Acetaminophen 650 MG Q6P PRN 11/03 1645 AC PO Acetaminophen 500 MG Q6P PRN 11/03 1630 AC PO Aspirin Buffered 81 MG DAILY 11/04 0900 AC 11/05 PO 0848 Atorvastatin Calcium 40 MG QPM 11/03 2100 AC 11/05 PO 2043 Benzonatate 100 MG TID 11/05 1010 AC PO Bisacodyl 5 MG DAILY 11/04 0900 AC 11/04 PO 0922 Diclofenac Sodium 1 ALEX 4 TIMES/DAY PRN 11/03 1615 AC 11/04 TOP 0602 Digoxin 0.0625 MG 1700 11/03 1700 AC 11/05 PO 1712 Diltiazem HCl 60 MG Q8 11/03 1616 AC 11/06 PO 0644 Epoetin Tee 1,000 UNIT 11/08 0900 IV Epoetin Tee 4,000 UNITS Monday .. 11/06 0900 VA IV Ezetimibe 10 MG DAILY 11/04 0900 AC 11/05 PO 0848 Fish Oil 1,050 MG DAILY 11/04 09 AC 11/04 PO 0921 Folic Acid 1 MG DAILY 11/04 09 AC 11/05 PO 0850 Guaifenesin 600 MG Q12 11/03 2100 AC 11/05 PO 2043 Heparin Sodium 5,000 UNIT Q8 11/03 2200 AC 11/05 (Porcine) SC 0609 Lactobacillus 1 CAP DAILY 11/04 09 AC 11/04 Acidophilus PO 0921 Melatonin 5 MG .STK-MED ONE 11/05 2012 DC PO 11/05 2013 Melatonin 5 MG AT BEDTIME 11/04 2145 AC 11/05 PO 2043 Multivitamins 1 TAB DAILY 11/04 09 AC 11/05 PO 0848 Omeprazole 20 MG DAILY 11/04 0900 11/05 PO 0848 Paricalcitol 6 MCG PER PROTOCL PRN 11/03 1330 AC IV Polyethylene Glycol 17 GM DAILY 11/04 09 AC 11/04 PO 0922 Pyridoxine HCl 50 MG DAILY 11/04 0900 11/04 PO 1450 Ramelteon 8 MG ONCE ONE 11/06 0230 DC 11/06 PO 11/06 0231 0253 Sevelamer Carbonate 800 MG MoWeFr@0800 11/06 0800 PO Sevelamer Carbonate 800 MG SuTuThSa@0800,1200 11/05 0800 PO Sevelamer Carbonate 1,600 MG 1700 11/03 1700 AC 11/03 PO 1844 Results Last 48 Hrs of Labs/Mics: Laboratory Tests 11/06/17 0734: Anion Gap 16, Estimated GFR 5 L, BUN/Creatinine Ratio 6.4 L, Glucose 74, Calcium 7.5 L, CBC w Diff NO MAN DIFF REQ, RBC 3.32 L, MCV 92.3, MCH 30.8, MCHC 33.3, RDW 15.1 H, MPV 8.3, Gran % 71.2, Lymphocytes % 19.1 L, Monocytes % 8.4, Eosinophils % 1.2, Basophils % 0.1, Absolute Granulocytes 12.2 H, Absolute Lymphocytes 3.3, Absolute Monocytes 1.4 H, Absolute Eosinophils 0.2, Absolute Basophils 0 11/06/17 0631: Anion Gap 17 H, Estimated GFR 6 L, BUN/Creatinine Ratio 6.7 L, CBC w Diff NO MAN DIFF REQ, RBC 3.33 L, MCV 91.9, MCH 30.9, MCHC 33.7, RDW 15.5 H, MPV 8.5, Gran % 68.7, Lymphocytes % 23.2, Monocytes % 6.6, Eosinophils % 1.4, Basophils % 0.1, Absolute Granulocytes 12.1 H, Absolute Lymphocytes 4.1 H, Absolute Monocytes 1.2 H, Absolute Eosinophils 0.2, Absolute Basophils 0 11/05/17 1800: Random Vancomycin Cancelled 11/05/17 0620: Anion Gap 16, Estimated GFR 8 L, BUN/Creatinine Ratio 6.5 L, CBC w Diff NO MAN DIFF REQ, RBC 3.58 L, MCV 91.9, MCH 30.5, MCHC 33.2, RDW 16.3 H, MPV 8.4, Gran % 78.4 H, Lymphocytes % 9.2 L, Monocytes % 10.0 H, Eosinophils % 2.0, Basophils % 0.4, Absolute Granulocytes 14.6 H, Absolute Lymphocytes 1.7, Absolute Monocytes 1.9 H, Absolute Eosinophils 0.4, Absolute Basophils 0.1 11/04/17 1755: Random Vancomycin < 5.0 Microbiology 11/04 1255 NASOPHARYN: Influenza Virus A & B Rapid Smear - COMP Recent Imaging Studies: Chest CT 11/05/2017: 1. No evidence of pulmonary embolism. 2. Mild emphysema. 3. Four-chamber enlargement of the heart and moderate to severe three-vessel coronary artery calcifications. 4. Left kidney is partially included and appears atrophic with several cysts seen, similar to prior exam. VTE: negative. Assessment/Plan Assessment/Plan [id number] w/ hx previous obesity, HTN, HLD, previous strokes (03/1995; 04/1996) , AAA s/p endovascular stent (08/20/2004), LVH, CAD (s/p inf STEMI 05/25/2003 Rx 'd w/ thrombolytics; recurrent CP s/p cardiac cath 06/02/2003 w/ PCI/PRITI [Cypher ] stent deployments to LAD/LCx), RBBB, ch AF w/o AC, nephrolithiasis, recurrent UTIs, ESRD on HD, & ch anemia on KEVON who we are asked to evaluate in regard to a pos troponin I following her admission. Suspect the etiology for her elevated troponin I is multifactorial: type II VT, defined as an VT consequent to increased oxygen demand or decreased supply (e.g. , coronary endothelial dysfunction, coronary artery spasm, coronary artery embolus, tachycardia/bradycardia, anemia, respiratory failure, hyper or hypotension, etc.), as well as, her CKD, AF, LVH, etc. and not an ACS. Fortunately, she is clinically and hemodynamically stable, but continues to feel weak w/ an elevated WBC count, is w/o fever and w/ neg cultures that appears chronic & possibly 2/2 her splenectomy. No new cardiac issues and off telemetry. Continue to follow-up on ID recommendations. Continue telemetry? Not applicable (Off telemetry.)
[2017-11-06 12:16] VITALS: BP 120/68
--- NOTE | 2017-11-06 12:40 | Patient Discharge Instructions ---
Discharge Instructions General Discharge Information You were seen/treated for: COUGH Special Instructions: Please follow-up with your primary care physician within 1 week after discharge Please follow up with rope cleaner within 1 week after discharge Please continue your dialysis session on Monday, Monday and Monday Diet Recommended Diet: Renal Dialysis Acute Coronary Syndrome Inclusion Criteria At DC or during hospital stay patient has or had the following: ACS DIAGNOSIS No Discharge Core Measures Meds if any: Prescribed or Continued at Discharge Meds if any: NOT Prescribed or Continued at Discharge Congestive Heart Failure Inclusion Criteria At DC or during hospital stay patient has or had the following: CHF DIAGNOSIS No Discharge Core Measures Meds if any: Prescribed or Continued at Discharge Meds if any: NOT Prescribed or Continued at Discharge Cerebrovascular accident Inclusion Criteria At DC or during hospital stay patient has or had the following: CVA/TIA Diagnosis No Discharge Core Measures Meds if any: Prescribed or Continued at Discharge Meds if any: NOT Prescribed or Continued at Discharge Venous thromboembolism Inclusion Criteria VTE Diagnosis No VTE Type NONE VTE Confirmed by (Test) CT CHEST ANGIOGRAM Discharge Core Measures - Per Current guidelines, there needs to be overlap - treatment for the first 5 days of Warfarin therapy. - If discharged on Warfarin prior to 5 days of - overlap therapy, the patient will need to be - assessed for post discharge needs including - *Post discharge parental anticoagulation - *Warfarin and/or parental anticoagulation education - *Follow up date to check INR post discharge At least 5 days overlap therapy as Inpatient No Meds if any: Prescribed or Continued at Discharge Note: Overlap Therapy is Warfarin and Anticoagulant Meds if any: NOT Prescribed or Continued at Discharge
--- NOTE | 2017-11-06 12:58 | Discharge Summary ---
See Addendum Visit Information Visit Dates Admission Date: 11/03/17 Discharge Date: 11/06/2017 Hospital Course Course Attending Physician: Jairo Nava MD Primary Care Physician: Elijah HUBBARD,Jairo Hospital Course: Mrs. 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 Patient was admitted to telemetry floor because of mildly elevated troponin 0.21 and presence of right sided pleuritic chest pain. Patient failed outpatient treatment of pneumonia with levofloxacin and doxycycline. Patient received dialysis with neurology consultation on board. Cardiology consultation was obtained and troponin elevation thought to be multifactorial include possible type II in the setting of anemia, CKD and possible infection. Troponins trended down and EKG didn't shows any acute changes. Patient continued on home medication including digoxin, digoxin level was measured on admission that was therapeutic. Patient was initially treated as HAP with vancomycin and ceftaz, ID consultation was obtained. CTA lungs didn't reveal any infection, blood culture remined negative with no obvious focus of infection. UA and urine culture were not obtained becuase of very poor urine output in setting of HD. Decision was made to follow off antibiotics, patient remained afebrile with leukocytosis back to baseline. Patient will be discharged to [facility] off antibiotics, only symptomatic management Robitussin and acetaminophen and follow up with PCP. Allergies: Coded Allergies: NO KNOWN ALLERGIES (01/18/16) Disposition Summary Disposition Principal Diagnosis: Elevated troponin Additional Diagnosis: ESRD on dialysis Discharge Disposition: SNF Discharge Instructions General Discharge Information Code Status: Do Not Resucitate/Intubat Patient's Diet: Renal dailysis Patient's Activity: As tolerated Follow-Up Instructions/Appts: Please follow-up with your primary care physician within 1 week after discharge Please follow up with salesforce specialist within 1 week after discharge Please continue your dialysis session on Monday, Monday and Monday Medications at Discharge Discharge Medications: Continue taking these medications: Folic Acid (Folic Acid) 0.4 MG TABLET 1 Tablet ORAL DAILY Comments: LAST GIVEN 03/20/17 @ 1409 Aspirin (Ecotrin*) 81 MG TABLET. 1 Tablet ORAL DAILY Comments: NOT GIVEN Pyridoxine HCl (Vitamin B-6) 50 MG TABLET 1 Tablet ORAL DAILY Comments: LAST GIVEN 03/20/17 @ 1409 Digoxin (Lanoxin) 125 MCG TABLET 0.0625 Milligram ORAL 5 PM Qty = 30 Instructions: Every 24h Comments: LAST GIVEN 03/20/17 @ 1712 Midodrine HCl (Midodrine HCl) 2.5 MG TABLET 1 Tablet ORAL MONDAY, MONDAY AND MONDAY Atorvastatin Calcium (Atorvastatin Calcium) 40 MG TABLET 1 Tablet ORAL Every night Comments: LAST GIVEN 03/20/17 @ 1712 Ezetimibe (Zetia) 10 MG TABLET 1 Tablet ORAL DAILY Comments: LAST GIVEN 03/20/17 @ 1409 Elma-3 Fatty Acids/Fish Oil (Fish Oil 1,000 MG Capsule) 340 MG-1,000 MG CAPSULE 1 Capsule ORAL DAILY Comments: LAST GIVEN 03/20/17 @ 1409 Diltiazem HCl (Cardizem) 60 MG TABLET 1 Tablet ORAL EVERY 8 HOURS Comments: LAST GIVEN 03/20/17 @ 1409 Lactobacillus Acidophilus (Acidophilus) 1 EACH CAPSULE 1 Capsule ORAL DAILY Diclofenac Sodium (Voltaren) 1 % GEL..GRAM. 1 Gram On the skin 4 TIMES A DAY Instructions: apply to affected area(s) Sevelamer Carbonate (Renvela) 800 MG TABLET 2 Tablet ORAL 5 PM Qty = 90 Bisacodyl (Women's Laxative) 5 MG TABLET 1 Tablet ORAL DAILY Epoetin Tee (Epogen) 2,000 UNIT/ML VIAL 4,000 INTRAVEN MONDAY, MONDAY AND MONDAY Nephro-Vitamins (Nephro-Katlyn Tablet) 0.8 MG TABLET 1 Tablet ORAL DAILY Acetaminophen (Tylenol Arthritis) 650 MG TABLET.ER 1 Tablet ORAL TWICE DAILY Omeprazole (Omeprazole) 20 MG CAPSULE. 1 Capsule ORAL DAILY Sevelamer Carbonate (Renvela) 800 MG TABLET 1 Tablet ORAL SuTuThSa Comments: BID Sevelamer Carbonate (Renvela) 800 MG TABLET 1 Tablet ORAL MoWeFr Comments: DAILY Guaifenesin (Mucus Relief) 400 MG TABLET 2 Tablet ORAL TWICE DAILY Copies To: Barbara HUBBARD,Juan Carlos Allen; Mira HUBBARD,Genaro Alvarez; Elijah HUBBARD,Jairo
[2017-11-06 15:22] VITALS: BP 128/58
[2017-11-06 22:25] VITALS: BP 126/70
[2017-11-07 07:03] VITALS: BP 110/62
--- NOTE | 2017-11-07 07:16 | PN- Housestaff ---
Subjective Follow-up For: Leukocytosis, CKD, Tele-Events Since Last Visit: off tele Subjective: Patient was seen and examined at bedside, no overnight events, she went for dialysis today, vitals are stable Review of Systems Constitutional: Reports: see HPI. Objective Last 24 Hrs of Vital Signs/I&O Vital Signs Date Time Temp Pulse Resp B/P B/P Pulse O2 O2 Flow FiO2 Mean Ox Delivery Rate 11/07 0800 Nasal 2.0L Cannula 11/07 0703 97.9 66 16 110/62 99 Nasal Cannula 11/07 0653 66 110/62 11/06 2225 98.7 62 22 126/70 98 Nasal 2.0L Cannula 11/06 2138 Nasal 2.0L Cannula 11/06 2040 62 126/70 11/06 1727 66 128/58 11/06 1522 98.1 66 20 128/58 97 Nasal Cannula Intake & Output 11/07 1600 11/07 0800 11/07 0000 Intake Total 120 200 Output Total 0 Balance 120 200 Intake, Oral 120 200 Number 0 1 Bowel Movements Output, Urine 0 Patient 115 lb Weight Weight Bed scale Measurement Method Physical Exam General Appearance: Alert, Oriented X3, Cooperative, No Acute Distress HEENT: Atraumatic, PERRLA, EOMI, Mucous Membr. moist/pink Neck: Supple, No JVD Cardiovascular: Normal S1, Normal S2, No Murmurs Lungs: Clear to Auscultation Abdomen: Normal Bowel Sounds, Soft, No Tenderness Neurological: Normal Speech, Strength at 5/5 X4 Ext, Normal Tone, Sensation Intact, Cranial Nerves 3-12 NL Extremities: No Clubbing, No Cyanosis Assessment/Plan Assessment: Ms. Weiner is an 81-year-old female with past medical history of CVA, aortic aneurysm, atrial fibrillation not on anticoagulation followed by Dr. Jimenez, coronary artery disease status post STEMI, hypertension, chronic kidney disease on hemodialysis followed with Dr. Tee, osteoarthritis, AAA status post repair, ITP status post splenectomy, and severe pulmonary hypertension who presents with chills and weakness. Problem List: 1. Leukocytosis 2. Chronic kidney disease on hemodialysis 3. Elevated troponin 4. Normocytic anemia #Leukocytosis: Patient has a chronically elevated white blood cell count but is now presenting with chills, shortness of breath, and cough in the setting of an even higher white count. I suspect that she is infected but the source is unclear. Given her symptoms, pneumonia is high in the differential though she did fail levofloxacin and doxycycline therapy. It is possible that is resistant to these antibiotics. Additionally, she has a catheter has not been changed in a while and could be a source of infection, especially given that she has not responded to treatment so far. Finally, she is complaining of some mild dysuria and could have a urinary source. Patient is status post splenectomy and has chronic kidney disease, which contribute to an immunocompromised state. This morning, she is feeling better and her white blood cell count has come back to her baseline. CT chest yesterday did not show any evidence of pneumonia, leading me to think that this is more likely catheter associated. -Blood culture: Negative sputum culture, urinary antigens -Follow-up on Legionella and strep pneumonia, urinalysis, urine culture -patient refuses straight cath - Continue to follow off antibiotics -Appreciate ID recommendations #Elevated troponin: Patient is a very mild troponin elevation with no EKG changes. She has some right-sided thoracic pain but no left-sided chest pain or other signs of ACS. I suspect type II myocardial infarction. She did receive aspirin in the ER. Troponins have trended down. -Appreciate cardiology recommendations #Chronic kidney disease on hemodialysis: Patient is on dialysis and is receiving dialysis today. Her anemia is likely related to this. -Appreciate nephrology recommendations -Hemodialysis Monday #Chronic medical problems: -Continue other medications DVT prophylaxis with heparin Renal dialysis diet DNR/DNI Problem List: 1. Chronic renal failure Pain Ratin Pain Location: N/A Pain Goal: Remain pain free Pain Plan: Pathway Tomorrow's Labs & Rationales: CBC BEP
--- NOTE | 2017-11-07 09:24 | PN- Att Addend ---
Attending Addendum Attending Brief Note Feels weak, food doesn't taste couldn't, overall looking better. Vital signs are stable no fever, no new changes on physical. Patient didn't leave yesterday due to insurance issues was start disposition plans for patient to return to [facility] today, I will follow her over there, will follow her CBC see the discharge summary and W 10 and CMR. Intake & Output 11/07 1600 11/07 0400 11/06 1600 11/06 0400 11/05 1600 11/05 0400 Intake Total 120 200 600 100 940 320 Output Total 0 1000 Balance 120 200 -400 100 940 320 Intake, IV 200 Intake, Oral 120 200 600 100 940 120 Number 0 1 1 Bowel Movements Output, 1000 Dialysate Output, Urine 0 Patient 115 lb 108 lb 109 lb 109 lb Weight Weight Bed scale Bed scale Bed scale Bed scale Measurement Method Current Medications Sig/Margaret Start time Last Medication Dose Route Stop Time Status Admin Acetaminophen 650 MG Q6P PRN 11/03 1645 AC PO Acetaminophen 500 MG Q6P PRN 11/03 1630 AC PO Aspirin Buffered 81 MG DAILY 11/04 09 11/07 PO 0827 Atorvastatin Calcium 40 MG QPM 11/03 2100 AC 11/06 PO 2040 Benzonatate 100 MG TID 11/05 1010 AC 11/07 PO 0828 Bisacodyl 5 MG DAILY 11/04 09 11/07 PO 0824 Diclofenac Sodium 1 ALEX 4 TIMES/DAY PRN 11/03 1615 AC 11/07 TOP 0823 Digoxin 0.0625 MG 1700 11/03 1700 AC 11/06 PO 1727 Diltiazem HCl 60 MG Q8 11/03 1616 AC 11/07 PO 0653 Epoetin Tee 1,000 UNIT 11/08 09 AC IV Epoetin Tee 4,000 UNITS Monday .. 11/06 0900 DC IV Ezetimibe 10 MG DAILY 11/04 09 AC 11/07 PO 0828 Fish Oil 1,050 MG DAILY 11/04 0900 AC 11/04 PO 0921 Folic Acid 1 MG DAILY 11/04 09 AC 11/07 PO 0827 Guaifenesin 600 MG Q12 11/03 2100 AC 11/07 PO 0833 Heparin Sodium 5,000 UNIT Q8 11/03 2200 AC 11/07 (Porcine) SC 0653 Lactobacillus 1 CAP DAILY 11/04 09 AC 11/07 Acidophilus PO 826 Melatonin 5 MG AT BEDTIME 11/04 2145 AC 11/06 PO 2038 Multivitamins 1 TAB DAILY 11/04 09 AC 11/07 PO 826 Omeprazole 20 MG DAILY 11/04 09 AC 11/07 PO 826 Paricalcitol 6 MCG PER PROTOCL PRN 11/03 1330 AC IV Polyethylene Glycol 17 GM DAILY 11/04 09 AC 11/07 PO 827 Pyridoxine HCl 50 MG DAILY 11/04 09 AC 11/07 PO 08 Sevelamer Carbonate 800 MG MoWeFr@0800 11/06 0800 AC 11/06 PO 1212 Sevelamer Carbonate 800 MG SuTuThSa@0800,1200 11/05 0800 AC PO Sevelamer Carbonate 1,600 MG 1700 11/03 1700 AC 11/03 PO 1844 Laboratory Tests 11/06/17 0734: Anion Gap 16, Estimated GFR 5 L, BUN/Creatinine Ratio 6.4 L, Glucose 74, Calcium 7.5 L, CBC w Diff NO MAN DIFF REQ, RBC 3.32 L, MCV 92.3, MCH 30.8, MCHC 33.3, RDW 15.1 H, MPV 8.3, Gran % 71.2, Lymphocytes % 19.1 L, Monocytes % 8.4, Eosinophils % 1.2, Basophils % 0.1, Absolute Granulocytes 12.2 H, Absolute Lymphocytes 3.3, Absolute Monocytes 1.4 H, Absolute Eosinophils 0.2, Absolute Basophils 0 11/06/17 0631: Anion Gap 17 H, Estimated GFR 6 L, BUN/Creatinine Ratio 6.7 L, CBC w Diff NO MAN DIFF REQ, RBC 3.33 L, MCV 91.9, MCH 30.9, MCHC 33.7, RDW 15.5 H, MPV 8.5, Gran % 68.7, Lymphocytes % 23.2, Monocytes % 6.6, Eosinophils % 1.4, Basophils % 0.1, Absolute Granulocytes 12.1 H, Absolute Lymphocytes 4.1 H, Absolute Monocytes 1.2 H, Absolute Eosinophils 0.2, Absolute Basophils 0 11/05/17 1800: Random Vancomycin Cancelled 11/05/17 1038: Urine Color Cancelled, Urine Clarity Cancelled, Urine pH Cancelled, Ur Specific [place] Cancelled, Urine Protein Cancelled, Urine Ketones Cancelled, Urine Nitrite Cancelled, Urine Bilirubin Cancelled, Urine Urobilinogen Cancelled, Ur Leukocyte Esterase Cancelled, Ur Microscopic Cancelled, Urine Hemoglobin Cancelled, Urine Glucose Cancelled 11/05/17 0620: Anion Gap 16, Estimated GFR 8 L, BUN/Creatinine Ratio 6.5 L, CBC w Diff NO MAN DIFF REQ, RBC 3.58 L, MCV 91.9, MCH 30.5, MCHC 33.2, RDW 16.3 H, MPV 8.4, Gran % 78.4 H, Lymphocytes % 9.2 L, Monocytes % 10.0 H, Eosinophils % 2.0, Basophils % 0.4, Absolute Granulocytes 14.6 H, Absolute Lymphocytes 1.7, Absolute Monocytes 1.9 H, Absolute Eosinophils 0.4, Absolute Basophils 0.1 11/04/17 1755: Random Vancomycin < 5.0 Microbiology 11/05 1038 URINE ROUT: Urine Culture - CAN Cancelled: SPECIMEN NOT RECEIVED IN LABORATORY 11/04 1255 NASOPHARYN: Influenza Virus A & B Rapid Smear - COMP Microbiology 11/05 1038 URINE ROUT: Urine Culture - CAN Cancelled: SPECIMEN NOT RECEIVED IN LABORATORY 11/04 1255 NASOPHARYN: Influenza Virus A & B Rapid Smear - COMP Vital Signs Date Time Temp Pulse Resp B/P B/P Pulse O2 O2 Flow FiO2 Mean Ox Delivery Rate 11/07 0703 97.9 66 16 110/62 99 Nasal Cannula 11/07 0653 66 110/62 11/06 2225 98.7 62 22 126/70 98 Nasal 2.0L Cannula 11/06 2138 Nasal 2.0L Cannula 11/06 2040 62 126/70 11/06 1727 66 128/58 11/06 1522 98.1 66 20 128/58 97 Nasal Cannula 11/06 1425 Nasal 2.0L Cannula 11/06 1411 94 128/58 11/06 1216 97.7 85 18 120/68 97 Nasal 2.0L Cannula 11/06 1200 Nasal 2.0L Cannula
[2017-11-07 14:47] VITALS: BP 118/62
[2017-11-07 21:23] VITALS: BP 118/64
[2017-11-08 06:16] VITALS: BP 108/58
--- NOTE | 2017-11-08 07:26 | PN- Housestaff ---
Subjective Follow-up For: Leukocytosis, CKD, Tele-Events Since Last Visit: off tele Subjective: Patient was seen and examined at bedside, no overnight events, she went for dialysis today, vitals are stable Review of Systems Constitutional: Reports: see HPI. Objective Last 24 Hrs of Vital Signs/I&O Vital Signs Date Time Temp Pulse Resp B/P B/P Pulse O2 O2 Flow FiO2 Mean Ox Delivery Rate 11/09 615 97.9 66 18 108/58 97 Nasal Cannula 11/08 0000 95 Nasal 2.0L Cannula 11/073 97.9 66 18 118/64 98 Nasal Cannula 11/08 2027 4.0 11/08 2027 72 118/64 11/07 1626 102 118/62 11/07 1457 102 118/62 11/07 1447 97.6 102 16 99 Nasal Cannula Intake & Output 11/08 1600 11/08 0800 11/08 0000 Intake Total 200 Output Total Balance 200 Intake, Oral 200 Number 2 Bowel Movements Patient 114 lb Weight Physical Exam General Appearance: Alert, Oriented X3, Cooperative, No Acute Distress HEENT: Atraumatic, PERRLA, EOMI, Mucous Membr. moist/pink Neck: Supple, No JVD Cardiovascular: Normal S1, Normal S2, No Murmurs Lungs: Clear to Auscultation Abdomen: Normal Bowel Sounds, Soft, No Tenderness Neurological: Normal Speech, Strength at 5/5 X4 Ext, Normal Tone, Sensation Intact, Cranial Nerves 3-12 NL Extremities: No Clubbing, No Cyanosis, No Edema Assessment/Plan Assessment: Ms. Weiner is an 81-year-old female with past medical history of CVA, aortic aneurysm, atrial fibrillation not on anticoagulation followed by Dr. Jimenez, coronary artery disease status post STEMI, hypertension, chronic kidney disease on hemodialysis followed with Dr. Tee, osteoarthritis, AAA status post repair, ITP status post splenectomy, and severe pulmonary hypertension who presents with chills and weakness. Problem List: 1. Leukocytosis 2. Chronic kidney disease on hemodialysis 3. Elevated troponin 4. Normocytic anemia #Leukocytosis: Patient has a chronically elevated white blood cell count but is now presenting with chills, shortness of breath, and cough in the setting of an even higher white count. I suspect that she is infected but the source is unclear. Given her symptoms, pneumonia is high in the differential though she did fail levofloxacin and doxycycline therapy. It is possible that is resistant to these antibiotics. Additionally, she has a catheter has not been changed in a while and could be a source of infection, especially given that she has not responded to treatment so far. Finally, she is complaining of some mild dysuria and could have a urinary source. Patient is status post splenectomy and has chronic kidney disease, which contribute to an immunocompromised state. This morning, she is feeling better and her white blood cell count has come back to her baseline. CT chest yesterday did not show any evidence of pneumonia, leading me to think that this is more likely catheter associated. -Blood culture: Negative sputum culture, urinary antigens -Follow-up on Legionella and strep pneumonia, urinalysis, urine culture -patient refuses straight cath - Continue to follow off antibiotics -Appreciate ID recommendations #Elevated troponin: Patient is a very mild troponin elevation with no EKG changes. She has some right-sided thoracic pain but no left-sided chest pain or other signs of ACS. I suspect type II myocardial infarction. She did receive aspirin in the ER. Troponins have trended down. -Appreciate cardiology recommendations #Chronic kidney disease on hemodialysis: Patient is on dialysis and is receiving dialysis today. Her anemia is likely related to this. -Appreciate nephrology recommendations -Hemodialysis Monday #Chronic medical problems: -Continue other medications DVT prophylaxis with heparin Renal dialysis diet DNR/DNI Problem List: 1. Chronic renal failure Pain Ratin Pain Location: N/A Pain Goal: Remain pain free Pain Plan: Pathway Tomorrow's Labs & Rationales: N/A
--- NOTE | 2017-11-08 09:57 | PN- Att Addend ---
Attending Addendum Attending Brief Note Hemodialysis in progress. Patient still weak but no new complaints Vital signs are stable no fever and no major changes on physical exam Will check with resident, if everything is stable then will allow the patient to return to [facility] Intake & Output 11/08 1600 11/08 0400 11/07 1600 11/07 0400 11/06 1600 11/06 0400 Intake Total 200 720 200 600 100 Output Total 0 1000 Balance 200 720 200 -400 100 Intake, Oral 200 720 200 600 100 Number 2 1 1 1 Bowel Movements Output, 1000 Dialysate Output, Urine 0 Patient 114 lb 115 lb 108 lb 109 lb Weight Weight Bed scale Bed scale Bed scale Measurement Method Current Medications Sig/Margaret Start time Last Medication Dose Route Stop Time Status Admin Acetaminophen 650 MG .STK-MED ONE 11/08 2023 DC PO 11/07 2024 Acetaminophen 650 MG Q6P PRN 11/03 1645 AC 11/07 PO 2027 Acetaminophen 500 MG Q6P PRN 11/03 1630 AC PO Aspirin Buffered 81 MG DAILY 11/04 09 AC 11/07 PO 0827 Atorvastatin Calcium 40 MG QPM 11/03 2100 AC 11/07 PO 2027 Benzonatate 100 MG TID 11/05 1010 AC 11/07 PO 2027 Bisacodyl 5 MG DAILY 11/04 09 AC 11/07 PO 0824 Diclofenac Sodium 1 ALEX 4 TIMES/DAY PRN 11/03 1615 AC 11/07 TOP 0823 Digoxin 0.0625 MG 1700 11/03 1700 AC 11/07 PO 1626 Diltiazem HCl 60 MG Q8 11/03 1616 AC 11/07 PO 2027 Epoetin Tee 1,000 UNIT 11/08 0900 AC IV Ezetimibe 10 MG DAILY 11/04 09 AC 11/07 PO 0828 Fish Oil 1,050 MG DAILY 11/04 09 AC 11/04 PO 0921 Folic Acid 1 MG DAILY 11/04 09 AC 11/07 PO 08 Guaifenesin 600 MG Q12 11/03 2100 AC 11/07 PO 2027 Heparin Sodium 5,000 UNIT Q8 11/03 2200 AC 11/08 (Porcine) SC 0707 Lactobacillus 1 CAP DAILY 11/04 09 AC 11/07 Acidophilus PO 0827 Melatonin 5 MG AT BEDTIME 11/04 2145 11/07 PO 2027 Multivitamins 1 TAB DAILY 11/04 0900 AC 11/07 PO 826 Omeprazole 20 MG DAILY 11/04 0900 AC 11/07 PO 826 Paricalcitol 6 MCG PER PROTOCL PRN 11/03 1330 AC IV Patient Medication 1 ED ONE ONE 11/07 1630 LA Teaching ED 11/07 1631 Polyethylene Glycol 17 GM DAILY 11/04 0900 AC 11/07 PO 0828 Pyridoxine HCl 50 MG DAILY 11/04 0900 AC 11/07 PO 0828 Sevelamer Carbonate 800 MG MoWeFr@0800 11/06 0800 AC 11/06 PO 1212 Sevelamer Carbonate 800 MG SuTuThSa@0800,1200 11/05 0800 AC PO Sevelamer Carbonate 1,600 MG 1700 11/03 1700 AC 11/03 PO 1844 Laboratory Tests 11/08/17 0800: Sodium Pending, Potassium Pending, Chloride Pending, Carbon Dioxide Pending, Anion Gap Pending, BUN Pending, Creatinine Pending, BUN/Creatinine Ratio Pending , Calcium Pending, CBC w Diff Pending, WBC Pending, RBC Pending, Hgb Pending, Hct Pending, MCV Pending, MCH Pending, MCHC Pending, RDW Pending, Plt Count Pending, MPV Pending 11/06/17 0734: Anion Gap 16, Estimated GFR 5 L, BUN/Creatinine Ratio 6.4 L, Glucose 74, Calcium 7.5 L, CBC w Diff NO MAN DIFF REQ, RBC 3.32 L, MCV 92.3, MCH 30.8, MCHC 33.3, RDW 15.1 H, MPV 8.3, Gran % 71.2, Lymphocytes % 19.1 L, Monocytes % 8.4, Eosinophils % 1.2, Basophils % 0.1, Absolute Granulocytes 12.2 H, Absolute Lymphocytes 3.3, Absolute Monocytes 1.4 H, Absolute Eosinophils 0.2, Absolute Basophils 0 11/06/17 0631: Anion Gap 17 H, Estimated GFR 6 L, BUN/Creatinine Ratio 6.7 L, CBC w Diff NO MAN DIFF REQ, RBC 3.33 L, MCV 91.9, MCH 30.9, MCHC 33.7, RDW 15.5 H, MPV 8.5, Gran % 68.7, Lymphocytes % 23.2, Monocytes % 6.6, Eosinophils % 1.4, Basophils % 0.1, Absolute Granulocytes 12.1 H, Absolute Lymphocytes 4.1 H, Absolute Monocytes 1.2 H, Absolute Eosinophils 0.2, Absolute Basophils 0 11/05/17 1800: Random Vancomycin Cancelled 11/05/17 1038: Urine Color Cancelled, Urine Clarity Cancelled, Urine pH Cancelled, Ur Specific [place] Cancelled, Urine Protein Cancelled, Urine Ketones Cancelled, Urine Nitrite Cancelled, Urine Bilirubin Cancelled, Urine Urobilinogen Cancelled, Ur Leukocyte Esterase Cancelled, Ur Microscopic Cancelled, Urine Hemoglobin Cancelled, Urine Glucose Cancelled Microbiology 11/05 1038 URINE ROUT: Urine Culture - CAN Cancelled: SPECIMEN NOT RECEIVED IN LABORATORY Microbiology 11/05 1038 URINE ROUT: Urine Culture - CAN Cancelled: SPECIMEN NOT RECEIVED IN LABORATORY Vital Signs Date Time Temp Pulse Resp B/P B/P Pulse O2 O2 Flow FiO2 Mean Ox Delivery Rate 11/08 0616 97.9 66 18 108/58 97 Nasal Cannula 11/08 0000 95 Nasal 2.0L Cannula 11/07 2122 97.9 66 18 118/64 98 Nasal Cannula 11/08 2027 4.0 11/08 2027 72 118/64 11/07 1626 102 118/62 11/07 1457 102 118/62 11/07 1447 97.6 102 16 118 99 Nasal Cannula
[2017-11-08 09:58] LABS: ABSOLUTE BASOPHIL COUNT 0 /CUMM (0.0-0.2); ABSOLUTE EOSINOPHIL COUNT 0.3 /CUMM (0.0-0.7); ABSOLUTE GRANULOCYTE CT 10.2 /CUMM (1.4-6.5); ABSOLUTE MONOCYTE COUNT 1.5 /CUMM (0.10-0.60); BASOPHIL % 0.1 % (0.0-2.0); EOSINOPHIL % 2.1 % (0-5); GRANULOCYTE % 73.1 % (42.2-75.2); HEMATOCRIT 30.8 % (37-47); MEAN CORPUSCULAR HGB 30.8 PG (27.0-31.0); MEAN CORPUSCULAR VOLUME 93.3 FL (81.0-99.0); MEAN PLATELET VOLUME 8.7 FL (7.4-10.4); PLATELET COUNT 326 /CUMM (130-400); RBC DISTRIBUTION WIDTH 16.3 % (11.5-14.5)
[2017-11-08 10:39] VITALS: BP 108/58
--- NOTE | 2017-11-08 11:24 | PN- Nephrology ---
Assessment/Plan Nephrology Assessment: ESRD - Routine HD today. ROCAEL cath positioning OK on imaging without s/s infection - touched base with outpatient unit as well. Will cont to monitor. ?Infection - Neg work-up. Anemia - Hg at goal but trending toward lower end. Epogen 1000U TIW restarted. Cough - ?reactive airway disease given emphysema on CT. ?role for inhalers. Suggestion: -HD today -I reached out to the outpatient unit re: catheter - will cont to monitor -Epogen 1000U TIW -?PRN inhaler Please call [phone] with ?'s Subjective Subjective: Pt seen and examined on dialysis Feeling a bit better Cough still present Infectious work-up remains negative - cultures neg; WBC downtrending; afebrile Objective Vital Signs and I&Os Vital Signs Date Time Temp Pulse Resp B/P B/P Pulse O2 O2 Flow FiO2 Mean Ox Delivery Rate 11/08 1039 97.9 66 18 108/58 11/08 06 97.9 66 18 108/58 97 Nasal Cannula 11/08 0000 95 Nasal 2.0L Cannula 11/07 2122 97.9 66 18 118/64 98 Nasal Cannula 11/08 2027 4.0 11/08 2027 72 118/64 11/07 1626 102 118/62 11/07 1457 102 118/62 11/07 1447 97.6 102 16 118/62 99 Nasal Cannula Intake & Output 11/08 1600 11/08 0400 11/07 1600 11/07 0400 11/06 1600 11/06 0400 Intake Total 200 720 200 600 100 Output Total 0 1000 Balance 200 720 200 -400 100 Intake, Oral 200 720 200 600 100 Number 2 1 1 1 Bowel Movements Output, 1000 Dialysate Output, Urine 0 Patient 114 lb 115 lb 108 lb 109 lb Weight Weight Bed scale Bed scale Bed scale Measurement Method Physical Exam: Gen - ok appearing HEENT - supple CV - RRR, no m/r/g Chest - clear anteriorly Abd - soft, NTND Ext - warm, no edema Neuro - AOX3, grossly nonfocal Current Medications: Current Medications Sig/Margaret Start time Last Medication Dose Route Stop Time Status Admin Acetaminophen 650 MG .STK-MED ONE 11/08 2023 DC PO 11/07 2024 Acetaminophen 650 MG Q6P PRN 11/03 1645 AC 11/07 PO 2027 Acetaminophen 500 MG Q6P PRN 11/03 1630 AC PO Aspirin Buffered 81 MG DAILY 11/04 0900 AC 11/07 PO 0827 Atorvastatin Calcium 40 MG QPM 11/03 2100 AC 11/07 PO 2027 Benzonatate 100 MG TID 11/05 1010 AC 11/07 PO 202 Bisacodyl 5 MG DAILY 11/04 0900 AC 11/07 PO 0824 Diclofenac Sodium 1 ALEX 4 TIMES/DAY PRN 11/03 1615 AC 11/07 TOP 0823 Digoxin 0.0625 MG 1700 11/03 1700 AC 11/07 PO 1626 Diltiazem HCl 60 MG Q8 11/03 1616 AC 11/07 PO 2028 Epoetin Tee 1,000 UNIT 11/08 0900 AC IV Ezetimibe 10 MG DAILY 11/04 0900 AC 11/07 PO 0828 Fish Oil 1,050 MG DAILY 11/04 0900 AC 11/04 PO 0921 Folic Acid 1 MG DAILY 11/04 0900 AC 11/07 PO 0827 Guaifenesin 600 MG Q12 11/03 2100 AC 11/07 PO 2027 Heparin Sodium 5,000 UNIT Q8 11/03 2200 AC 11/08 (Porcine) SC 0707 Lactobacillus 1 CAP DAILY 11/04 0900 AC 11/07 Acidophilus PO 0827 Melatonin 5 MG AT BEDTIME 11/04 2145 AC 11/07 PO 2027 Multivitamins 1 TAB DAILY 11/04 0900 AC 11/07 PO 0827 Omeprazole 20 MG DAILY 11/04 0900 AC 11/07 PO 0827 Paricalcitol 6 MCG PER PROTOCL PRN 11/03 1330 AC IV Patient Medication 1 ED ONE ONE 11/07 1630 DC Teaching ED 11/07 1631 Polyethylene Glycol 17 GM DAILY 11/04 0900 AC 11/07 PO 0828 Pyridoxine HCl 50 MG DAILY 11/04 0900 AC 11/07 PO 0828 Sevelamer Carbonate 800 MG MoWeFr@0800 11/06 0800 AC 11/06 PO 1212 Sevelamer Carbonate 800 MG SuTuThSa@0800,1200 11/05 0800 AC PO Sevelamer Carbonate 1,600 MG 1700 11/03 1700 AC 11/03 PO 1844 Results Pertinent Lab Results: Laboratory Tests 11/08 11/06 0800 0734 Chemistry Sodium (137 - 145 mmol/L) 136 L 139 Potassium (3.5 - 5.1 mmol/L) 3.2 L 3.4 L Chloride (98 - 107 mmol/L) 101 102 Carbon Dioxide (22 - 30 mmol/L) 24 21 L Anion Gap (5 - 16) 12 16 BUN (7 - 17 mg/dL) 29 H 46 H Creatinine (0.5 - 1.0 mg/dL) 5.5 *H 7.2 *H Estimated GFR (>60 ml/min) 7 L 5 L BUN/Creatinine Ratio (7 - 25 %) 5.3 L 6.4 L Glucose (65 - 99 mg/dL) 74 Calcium (8.4 - 10.2 mg/dL) 7.6 L 7.5 L Hematology CBC w Diff NO MAN DIFF REQ NO MAN DIFF REQ WBC (4.8 - 10.8 /CUMM) 14.0 H 17.1 H RBC (4.20 - 5.40 /CUMM) 3.30 L 3.32 L Hgb (12.0 - 16.0 G/DL) 10.2 L 10.2 L Hct (37 - 47 %) 30.8 L 30.7 L MCV (81.0 - 99.0 FL) 93.3 92.3 MCH (27.0 - 31.0 PG) 30.8 30.8 MCHC (33.0 - 37.0 G/DL) 33.0 33.3 RDW (11.5 - 14.5 %) 16.3 H 15.1 H Plt Count (130 - 400 /CUMM) 326 382 MPV (7.4 - 10.4 FL) 8.7 8.3 Gran % (42.2 - 75.2 %) 73.1 71.2 Lymphocytes % (20.5 - 51.1 %) 14.1 L 19.1 L Monocytes % (1.7 - 9.3 %) 10.6 H 8.4 Eosinophils % (0 - 5 %) 2.1 1.2 Basophils % (0.0 - 2.0 %) 0.1 0.1 Absolute Granulocytes (1.4 - 6.5 /CUMM) 10.2 H 12.2 H Absolute Lymphocytes (1.2 - 3.4 /CUMM) 2.0 3.3 Absolute Monocytes (0.10 - 0.60 /CUMM) 1.5 H 1.4 H Absolute Eosinophils (0.0 - 0.7 /CUMM) 0.3 0.2 Absolute Basophils (0.0 - 0.2 /CUMM) 0 0 11/06 11/05 0631 1800 Chemistry Sodium (137 - 145 mmol/L) 138 Potassium (3.5 - 5.1 mmol/L) 3.8 Chloride (98 - 107 mmol/L) 101 Carbon Dioxide (22 - 30 mmol/L) 20 L Anion Gap (5 - 16) 17 H BUN (7 - 17 mg/dL) 47 H Creatinine (0.5 - 1.0 mg/dL) 7.0 *H Estimated GFR (>60 ml/min) 6 L BUN/Creatinine Ratio (7 - 25 %) 6.7 L Hematology CBC w Diff NO MAN DIFF REQ WBC (4.8 - 10.8 /CUMM) 17.6 H RBC (4.20 - 5.40 /CUMM) 3.33 L Hgb (12.0 - 16.0 G/DL) 10.3 L Hct (37 - 47 %) 30.6 L MCV (81.0 - 99.0 FL) 91.9 MCH (27.0 - 31.0 PG) 30.9 MCHC (33.0 - 37.0 G/DL) 33.7 RDW (11.5 - 14.5 %) 15.5 H Plt Count (130 - 400 /CUMM) 348 MPV (7.4 - 10.4 FL) 8.5 Gran % (42.2 - 75.2 %) 68.7 Lymphocytes % (20.5 - 51.1 %) 23.2 Monocytes % (1.7 - 9.3 %) 6.6 Eosinophils % (0 - 5 %) 1.4 Basophils % (0.0 - 2.0 %) 0.1 Absolute Granulocytes (1.4 - 6.5 /CUMM) 12.1 H Absolute Lymphocytes (1.2 - 3.4 /CUMM) 4.1 H Absolute Monocytes (0.10 - 0.60 /CUMM) 1.2 H Absolute Eosinophils (0.0 - 0.7 /CUMM) 0.2 Absolute Basophils (0.0 - 0.2 /CUMM) 0 Toxicology Random Vancomycin Cancelled Imaging/Other Studies: CT IMPRESSION: 1. No evidence of pneumonia. 2. Cardiomegaly and atherosclerotic disease of coronary arteries. No acute pulmonary edema. Trace bilateral pleural effusions and mild bibasilar atelectasis are noted. 3. Moderate centrilobular emphysema. 4. Cholelithiasis. CTA IMPRESSION: 1. No evidence of pulmonary embolism. 2. Mild emphysema. 3. Four-chamber enlargement of the heart and moderate to severe three-vessel coronary artery calcifications. 4. Left kidney is partially included and appears atrophic with several cysts seen, similar to prior exam.
[2017-11-08 11:50] VITALS: BP 130/60
== END 2017-11-08 13:20 | DRG 814 ==
LOC: ERH 11:15 → 1NO 12:54 → ERHI 12:54 → ENRESERV 14:13 → 1NO 14:31
PROVIDERS: Internal Medicine; Internal Medicine Nephrology; Physician Assistant Medical; Student in an Organized Health Care Education/Training Program
PROC: 5A1D70Z Performance of Urinary Filtration, Intermittent, Less than 6 Hours Per Day (ICD-10-PCS; principal; 2017-11-03)
DX: D72.829 Elevated white blood cell count, unspecified (principal); N18.6 End stage renal disease; I12.0 Hypertensive chronic kidney disease with stage 5 chronic kidney disease or end stage renal disease; Z99.2 Dependence on renal dialysis; I48.91 Unspecified atrial fibrillation; Z86.73 Personal history of transient ischemic attack (TIA), and cerebral infarction without residual deficits; I25.10 Atherosclerotic heart disease of native coronary artery without angina pectoris; I27.20 Pulmonary hypertension, unspecified; I25.2 Old myocardial infarction; Z90.710 Acquired absence of both cervix and uterus; Z90.81 Acquired absence of spleen; D64.9 Anemia, unspecified; R79.89 Other specified abnormal findings of blood chemistry; Z66 Do not resuscitate; E78.5 Hyperlipidemia, unspecified
CPT/HCPCS: 1NP; 36415; 36592; 71045; 82436; 87040; 87070; 87086; 87449; 87450; 87804; 87804-59; 93005; 93010; 99291; J0713; J0885-EC; J1644; J2501; J3370; J3490; J7040